=== PATIENT | female | born 1995 | race Caucasian/White ===

== ENCOUNTER 2023-12-28 22:01 | Emergency (ER) | payer OTHER, SELFPAY ==
[2023-12-28 22:05] VITALS: BP 146/84; PULSE 91; RESP 18; TEMP 36.6; O2SAT 96
--- NOTE | 2023-12-28 22:17 | ED_ITS ---
HPI - Nausea/Vomiting/Diarrhea 2 General: Chief complaint: Nausea/Vomiting/Diarrhea Stated complaint: n/v,abdomen pain Time Seen by Provider: 12/28/23 22:02 Source: patient and family Mode of arrival: ambulatory Limitations: no limitations History of Present Illness: Patient is a 28-year-old female presents to ED today along with her mother for complaints of nausea and vomiting. Patient states she has had abdominal pain, nausea, and vomiting for approximately 3 days now. She states she has been seen at [facility] twice. She states she has had blood work, CT of her abdomen/pelvis as well as a pelvic ultrasound and has been told that she has a ruptured ovarian cyst. Patient states she was also seen at [facility] earlier this morning. She at some point had Phenergan suppositories called in to the pharmacy but when she picked them up the pharmacy was closed. Patient states she is here now mainly because of the nausea and vomiting. She states over the past 2 days the only thing that she can do to subside her nausea and vomiting is sit in a hot shower or hot bath. I did inquire about marijuana use. She does states she smokes habitually but has not smoked in several days. MD elicited complaint: nausea and vomiting Onset (ago): day(s) Associated nausea: Yes Associated abdominal pain: Yes Location of pain: Diffuse Radiation: diffuse Pain consistency: constant Severity: moderate Quality: cramping Relieving factors: hot shower/bath and other (antiemetics) Context: marijuana use and other (told she has a ruptured ovarian cyst) Associated symtoms: Reports nausea; Denies chest pain, dizziness, dysuria, fatigue, headache(s) or malaise Review of Systems 2 Const: Denies: fever(s), chills, body aches, fatigue or malaise Card: Denies: chest pain Resp: Denies: dyspnea GI: Reports: abdominal pain, nausea, vomiting and GI cramping; Denies: hematemesis, pain on defecation, rectal pain, hematochezia or melena : Denies: flank pain, difficulty voiding, dysuria, urinary frequency, urinary urgency or urinary hesitancy Musc: Denies: neck pain, back pain, extremity pain or joint pain Skin/Breast: Denies: rash Neuro: Denies: headache(s), numbness in extremities, weakness in extremities, sensory changes or dizziness [facility] ED 2 Female Reproductive History: Date of last menstrual period: 12/07/23 Physical Exam 2 Const: COMMON NORMALS: no acute distress, patient oriented x3, no limitations, alert and well nourished GENERAL APPEARANCE: cooperative O RIENTATION/CONSCIOUSNESS: Yes awake, Yes oriented to person, Yes oriented to place and Yes oriented to time OTHER: hair is wet-she states the only thing that has been helping her N/V is sitting in a bath or shower HENMT: COMMON NORMALS: normocephalic and atraumatic HEAD & SCALP: normal to inspection, normocephalic and atraumatic Eye: GENERAL EYE: appearance normal, both eyes and all related structures and normal light reflex DIRECT OPHTHALMOSCOPY: Yes normal light reflex Resp: COMMON NORMALS: normal respiratory effort and clear to auscultation bilaterally AUSCULTATION: clear to auscultation bilaterally Cardio: COMMON NORMALS: regular rate and regular rhythm RATE: regular rate RHYTHM: regular rhythm GI: COMMON NORMALS: Normal to inspection, nondistended, normoactive bowel sounds present, Soft to palpation, No hepatosplenomegaly present and no masses INSPECTION: Yes normal to inspection AUSCULTATION: Yes normoactive bowel sounds PALPATION: Yes Soft to palpation, Yes Tenderness to palpation present (GI) (mild epigastric and lower abdominal pain; non-surgical exam), No Guarding due to palpation present (GI), No Rigid due to palpation and Yes No hepatosplenomegaly present : COMMON NORMALS: Yes no CVA tenderness BLADDER/KIDNEY EXAM: Yes no CVA tenderness Back/Pelvis: COMMON NORMALS: no CVA tenderness and thoracic and lumbar spine normal to inspection Extremity: GENERAL: Yes normal exam except as noted Neuro: SHERRY COMA SCALE: document GCS findings Sherry coma scale eye opening: Spontaneous Sherry coma scale verbal response: Orientated Sherry coma scale motor response: Obey commands [place] coma scale total score: 15 COMMON NORMALS: patient oriented x3, CN's II-XII intact bilaterally, moves all extremities, no focal motor deficits, no sensory deficits noted and gait normal SENSORIUM/ORIENTATION: Yes alert, Yes oriented to person, Yes oriented to place and Yes oriented to time Skin: COMMON NORMALS: no rashes or lesions noted GENERAL SKIN EXAM: no rashes or lesions noted Course 2 Vital Signs: Vital signs: Vital Signs Temperature 98 F 03/27/24 22:05 Pulse Rate 95 12/28/23 23:12 Respiratory Rate 16 12/28/23 23:12 Blood Pressure 142/95 12/28/23 23:12 Pulse Oximetry 99 12/28/23 23:12 Oxygen Delivery Me thod Room Air 12/28/23 23:12 MDM - Nausea/Vomiting/Diarrhea Medical Decision Making Patient here for severe nausea and vomiting over the last few days. Patient has been seen at [facility] yesterday as well as today. Records from [facility] were obtained. She had a CT scan of her abdomen and pelvis on 12/26. Impression at that time was 1) no acute abnormalities in the abdomen or pelvis. 2) Left adnexal cyst. Patient had an ultrasound performed today. Impression was 1) no apparent pathology. Likely recently ruptured left ovarian functional cyst or follicle (1.5cm). Hemoglobin today is higher than what it was at [facility]. At this time I have a low suspicion that her profound nausea and vomiting is secondary to such a small cyst. She is a habitual marijuana user and states the only thing that has helped for her symptoms is a hot bath/hot shower. She states she did not get much relief from the Reglan and Benadryl given here. I then gave her Haldol and Ativan suspecting a cannabis hyperemesis syndrome and this significantly alleviated her symptoms. Blood work today is fairly unremarkable. She is mildly hypokalemic most likely from the vomiting. She was given oral potassium supplementation for this. Recommend follow-up with her primary care provider. Medical Records I reviewed the patient's medical records. Lab Data I reviewed the patient's lab results. 12/28/23 22:29 12/28/23 22:29 Laboratory Results WBC 12.69 10^3/uL (3.29-11.43) H 12/28/23 22: RBC 5.05 10^6/uL (3.85-5.65) 12/28/23 22: Hgb 14.60 g/dL (11.27-16.99) 12/28/23 22: Hct 45.0 % (36-47) 12/28/23 22: MCV 89.1 fl (85-98) 12/28/23 22: MCH 28.9 pg (27-33) 12/28/23 22: MCHC 32.4 g/dL (30-55) 12/28/23 22: RDW 12.4 % (12.1-15.1) 12/28/23: Plt Count 302 10^3/cmm (157-399) 12/28/23 22: MPV 9.8 fL (7.4-10.4) 12/28/23: Neut % (Auto) 80.6 % 12/28/23: Lymph % (Auto) 12.5 % 12/28/23: [place] % (Auto) 6.2 % 12/28/23: Eos % (Auto) 0.1 % 12/28/23: Baso % (Auto) 0.2 % 12/28/23: Neut # (Auto) 10.23 10^3/uL (1.8-7.7) H 12/28/23: Lymph # (Auto) 1.6 10^3/uL (0.8-4.8) 12/28/23: [place] # (Auto) 0.8 10^3/uL (0.2-0.9) 12/28/23: Eos # (Auto) 0.0 10^3/uL (0.0-0.8) 12/28/23: Baso # (Auto) 0.0 10^3/uL (0.0-0.1) 12/28/23: Nucleated RBC % (auto) 0 % 12/28/23: Nucleated RBCs # 0.0 /100WBC 12/28/23 22: Sodium 142 mmol/L (136-145) 12/28/23 22: Potassium 3.0 mmol/L (3.5-5.1) L 12/28/23: Chloride 101 mmol/L (98-107) 12/28/23 22: Carbon Dioxide 28 mmol/L (22-29) 12/28/23 22: Anion Gap 16.0 (5-19) 12/28/23 22: BUN 8 mg/dL (6-20) 12/28/23: Creatinine 0.6 mg/dL (0.5-0.9) 12/28/23: GFR Calculation 119.0 mL/min (90-130) 12/28/23: Glucose 97 mg/dL (65-115) 12/28/23 22: Calculated Osmolality 292 mOsm/kg (285-295) 12/28/23 22: Calcium 9.7 mg/dL (8.5-10.5) 12/28/23: Total Bilirubin 0.5 mg/dL (0.15-1.2) 12/28/23: AST 26 U/L (0-32) 12/28/23 22: ALT 15 U/L (0-33) 12/28/23: Alkaline Phosphatase 86 U/L (35-105) 12/28/23: Total Protein 7.5 g/dL (6.6-8.7) 12/28/23: Albumin 4.6 g/dL (3.5-5.2) 12/28/23: Globulin 2.9 g/dL (1.3-4.6) 12/28/23: Lipase 70 U/L (13-60) H 12/28/23 22: HCG, Qual Negative (Negative) 12/28/23: Urine Color Yellow (Yellow) 12/28/23 22: Urine Appearance Sl hazy (CLEAR) A 12/28/23 22:37 Urine pH 5 (5-7) 12/28/23 22:37 Ur Specific [place] 1.025 (1.005-1.030) 12/28/23 22: Urine Protein Trace (Negative) 12/28/23 22: Urine Glucose (UA) Norm (Normal) 12/28/23 22:37 Urine Ketones 1+ (Negative) H 12/28/23 22:37 Urine Blood Trace (Negative) H 12/28/23 22:37 Urine Nitrate Negative (Negative) 12/28/23 22: Urine Bilirubin 1+ (Negative) H 12/28/23 22:37 Urine Urobilinogen Neg mg/dL (Negative) 12/28/23 22:37 Ur Leukocyte Esterase Negative (Negative) 12/28/23 22: Urine RBC 0-4 /hpf (0-2) H 12/28/23 22: Urine WBC 0-4 /hpf (0-5) H 12/28/23 22:37 Ur Squamous Epith Cells 5-10 /hpf (0-5) H 12/28/23 22:37 Amorphous Sediment Not Reportable 12/28/23 22:37 Urine Bacteria Trace /hpf (NONE) 12/28/23 22:37 Urine Mucus 3+ /hpf 12/28/23 22:37 No radiology studies performed this visit Discharge Plan Discharge Patient Disposition: Home Clinical Impression: Nausea and vomiting Qualifiers: Vomiting type: unspecified Qualified Code(s): R11.2 - Nausea with vomiting, unspecified Condition: Stable Discharge Orders: Discharge ED (Routine); Ordered 12/28/23 Ordered By: Tami Spence Referrals: Gissell Chatman MD [Primary Care Provider] - Coding Level of Care Code 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
[2023-12-28] MEDS: diphenhydrAMINE 50 mg/mL SDV 1mL IVP (22:34)
[2023-12-28] MEDS: metoclopramide 5 mg/mL SDV 2 mL 10 MG IVP (22:34)
[2023-12-28 22:35] LABS: Basophils % 0.2 %; Eosinophils % 0.1 %; Lymphocytes # 1.6 10^3/uL (0.8-4.8); Lymphocytes % 12.5 %; Mean Corpuscular HGB Conc 32.4 g/dL (30-55); Mean Corpuscular Hemoglobin 28.9 pg (27-33); Mean Corpuscular Volume 89.1 fl (85-98); Mean Platelet Volume 9.8 fL (7.4-10.4); Monocytes # 0.8 10^3/uL (0.2-0.9); Monocytes % 6.2 %; Neutrophils # 10.23 10^3/uL (1.8-7.7); Neutrophils % 80.6 %; Nucleated Red Blood Cells % 0 %; Platelet Count 302 10^3/cmm (157-399); Red Blood Count 5.05 10^6/uL (3.85-5.65); Red Cell Distribution Width 12.4 % (12.1-15.1); White Blood Count 12.69 10^3/uL (3.29-11.43)
[2023-12-28] MEDS: sodium chloride 0.9% 1,000 ML 999 ML IV (22:35)
[2023-12-28 22:47] LABS: HCG, Serum Qual Negative (Negative)
[2023-12-28 22:54] LABS: Alanine Aminotransferase 15 U/L (0-33); Albumin Level 4.6 g/dL (3.5-5.2); Alkaline Phosphatase 86 U/L (35-105); Aspartate Amino Transferase 26 U/L (0-32); Blood Urea Nitrogen 8 mg/dL (6-20); Calcium 9.7 mg/dL (8.5-10.5); Carbon Dioxide 28 mmol/L (22-29); Chloride 101 mmol/L (98-107); Globulin 2.9 g/dL (1.3-4.6); Glucose 97 mg/dL (65-115); Lipase 70 U/L (13-60); Osmolality Calculated 292 mOsm/kg (285-295); Sodium 142 mmol/L (136-145); Total Bilirubin 0.5 mg/dL (0.15-1.2); Total Protein 7.5 g/dL (6.6-8.7)
[2023-12-28 23:01] LABS: Add Urine Microscopic? YES; Bilirubin Urine 1+ (Negative); Blood Urine Trace (Negative); Glucose Urine UA Norm (Normal); Ketones Urine 1+ (Negative); Leukocyte Esterase Urine Negative (Negative); Nitrate Urine Negative (Negative); Protein Urine Trace (Negative); Specific Gravity, Urine 1.025 (1.005-1.030); Urine Appearance SL Hazy (CLEAR); Urine Color Yellow (Yellow); Urobilinogen Urine Neg (Negative); pH Urine 5 (5-7)
[2023-12-28 23:02] LABS: Add Urine Culture? No; Bacteria Urine TRACE /hpf; Mucus Urine 3+ /hpf; RBC Urine 0-4 /hpf (0-2); WBC Urine 0-4 /hpf (0-5)
[2023-12-28] MEDS: LORazepam 2 mg/mL INJ 10 mL MDV 1 MG IV (23:09)
[2023-12-28] MEDS: haloperidol inj 5 mg/mL INJ 1 mL IVP (23:09)
[2023-12-28 23:12] VITALS: BP 142/95; PULSE 95; RESP 16; O2SAT 99
[2023-12-28] MEDS: potassium chloride ER 20 mEq Tablet 40 MEQ PO (23:34)
== END 2023-12-28 23:42 | disposition home or self-care (01) ==
PROVIDERS: Emergency Provider Physician Assistant; PCP Internal Medicine
DX: R11.2 Nausea with vomiting, unspecified (principal)
CPT/HCPCS: 80053; 81001; 83690; 84703; 85025; 96361; 96374; 96375; 99284; J1200; J1630; J2060; J2765; J7030

== ENCOUNTER 2024-01-04 10:03 | Emergency (ER) | payer OTHER, SELFPAY ==
[2024-01-04 10:21] VITALS: PULSE 82; TEMP 36.7; O2SAT 99; BMI 32.9
[2024-01-04 10:27] VITALS: BP 147/98; PULSE 91; O2SAT 100
--- NOTE | 2024-01-04 10:27 | ED_ITS ---
HPI - Nausea/Vomiting/Diarrhea 2 General: Chief complaint: Nausea/Vomiting/Diarrhea Stated complaint: N/V, cant eat or drink Time Seen by Provider: 01/04/24 10:15 Source: patient Mode of arrival: ambulatory History of Present Illness: 28-year-old female who presents emergenc y room with complaints of increased abdominal pain nausea vomiting last few days. She was seen a few weeks ago with a ruptured ovarian cyst she is serum was negative at that time. She is she is currently having her period she has previously had surgery for diverticulitis as well as an appendectomy. MD elicited complaint: nausea and vomiting Location of pain: RLQ Quality: cramping Exacerbating factors: none Relieving factors: none Associated symtoms: Denies chest pain or dysuria Review of Systems 2 Const: Denies: fever(s) or chills Card: Denies: chest pain Resp: Denies: dyspnea GI: Denies: abdominal pain : Denies: dysuria, urinary frequency or urinary urgency Musc: Denies: neck pain or back pain Skin/Breast: Denies: rash PFSH ED 2 PFSH: Medical History (Updated 01/04/24 @ 12:50 by Paco Moore DO) Ovarian cyst Surgical History (Updated 01/04/24 @ 10:48 by Paco Moore DO) History of appendectomy Physical Exam 2 Const: GENERAL APPEARANCE: cooperative and comfortable O RIENTATION/CONSCIOUSNESS: Yes awake, Yes oriented to person, Yes oriented to place and Yes oriented to time HENMT: COMMON NORMALS: normocephalic, atraumatic and hearing grossly normal bilaterally HEAD & SCALP: normocephalic and atraumatic Resp: COMMON NORMALS: normal respiratory effort, No retractions, No use of accessory muscles and clear to auscultation bilaterally AUSCULTATION: clear to auscultation bilaterally Cardio: COMMON NORMALS: regular rate, regular rhythm and No murmurs present (Cardio) RATE: regular rate RHYTHM: regular rhythm GI: COMMON NORMALS: Soft to palpation and No hepatosplenomegaly present A USCULTATION: Yes normoactive bowel sounds PALPATION: Yes Soft to palpation, No Tenderness to palpation present (GI), No Guarding due to palpation present (GI) and Yes No hepatosplenomegaly present Extremity: COMMON NORMALS: normal to inspection, capillary refill normal, no clubbing, cyanosis or edema, no calf tenderness and no pedal edema Neuro: SENSORIUM/ORIENTATION: Yes oriented to person, Yes oriented to place and Yes oriented to time Skin: COMMON NORMALS: no rashes or lesions noted GENERAL SKIN EXAM: no rashes or lesions noted Course 2 Vital Signs: Vital signs: Vital Signs Temperature 98.1 F 01/04/24 10:21 Pulse Rate 95 01/04/24 12:33 Blood Pressure 162/91 01/04/24 12:33 Pulse Oximetry 94 01/04/24 12:33 Oxygen Delivery Me thod Room Air 01/04/24 12:33 MDM - Nausea/Vomiting/Diarrhea Medical Decision Making Patient still has persistent nausea and vomiting she says between episodes of nausea vomiting she does not really have much discomfort. She is seen a couple days ago for ruptured ovarian cyst she is previously having had an of appendectomy. She does not really have classic biliary colic her liver enzymes and T. bili are normal white count is slightly elevated. This may be due to demargination from persistent nausea and vomiting. She has not had much relief with the promethazine she took at home or the ondansetron that we gave her IV here. She does not regularly use medical marijuana. No other acute findings on the CT. Discharged home clear liquid diet patient be given Haldol and Ativan prior to discharge discussed that this make her very sleepy but should cut down on the nausea and vomiting if symptoms persist through tomorrow she should be reevaluated either at her doctor's office or return to the emergency room Had ordered Haldol and Ativan for nausea and vomiting. She declined. Medical Records I reviewed the patient's medical records. Lab Data I reviewed the patient's lab results. 01/04/24 10:18 01/04/24 10:18 Laboratory Results WBC 13.34 10^3/uL (3.29-11.43) H 01/04/24 10:18 RBC 4.66 10^6/uL (3.85-5.65) 01/04/24 10:18 Hgb 13.50 g/dL (11.27-16.99) 01/04/24 10:18 Hct 44.1 % (36-47) 01/04/24 10:18 MCV 94.6 fl (85-98) 01/04/24 10:18 MCH 29.0 pg (27-33) 01/04/24 10:18 MCHC 30.6 g/dL (30-55) 01/04/24 10:18 RDW 12.6 % (12.1-15.1) 01/04/24 10:18 Plt Count 262 10^3/cmm (157-399) 01/04/24 10:18 MPV 10.7 fL (7.4-10.4) H 01/04/24 10:18 Neut % (Auto) 88.8 % 01/04/24 10:18 Lymph % (Auto) 8.2 % 01/04/24 10:18 [place] % (Auto) 2.4 % 01/04/24 10:18 Eos % (Auto) 0.0 % 01/04/24 10:18 Baso % (Auto) 0.2 % 01/04/24 10:18 Neut # (Auto) 11.84 10^3/uL (1.8-7.7) H 01/04/24 10:18 Lymph # (Auto) 1.1 10^3/uL (0.8-4.8) 01/04/24 10:18 [place] # (Auto) 0.3 10^3/uL (0.2-0.9) 01/04/24 10:18 Eos # (Auto) 0.0 10^3/uL (0.0-0.8) 01/04/24 10:18 Baso # (Auto) 0.0 10^3/uL (0.0-0.1) 01/04/24 10:18 Nucleated RBC % (auto) 0 % 01/04/24 10:18 Nucleated RBCs # 0.0 /100WBC 01/04/24 10:18 Sodium 144 mmol/L (136-145) 01/04/24 10:18 Potassium 3.4 mmol/L (3.5-5.1) L 01/04/24 10:18 Chloride 107 mmol/L (98-107) 01/04/24 10:18 Carbon Dioxide 27 mmol/L (22-29) 01/04/24 10:18 Anion Gap 13.4 (5-19) 01/04/24 10:18 BUN 6 mg/dL (6-20) 01/04/24 10:18 Creatinine 0.6 mg/dL (0.5-0.9) 01/04/24 10:18 GFR Calculation 119.0 mL/min (90-130) 01/04/24 10:18 Glucose 115 mg/dL (65-115) 01/04/24 10:18 Calculated Osmolality 297 mOsm/kg (285-295) H 01/04/24 10:18 Calcium 8.8 mg/dL (8.5-10.5) 01/04/24 10:18 Total Bilirubin 0.2 mg/dL (0.15-1.2) 01/04/24 10:18 AST 21 U/L (0-32) 01/04/24 10:18 ALT 25 U/L (0-33) 01/04/24 10:18 Alkaline Phosphatase 79 U/L (35-105) 01/04/24 10:18 Total Protein 6.8 g/dL (6.6-8.7) 01/04/24 10:18 Albumin 4.2 g/dL (3.5-5.2) 01/04/24 10:18 Globulin 2.6 g/dL (1.3-4.6) 01/04/24 10:18 Lipase 49 U/L (13-60) 01/04/24 10:18 HCG, Qual Negative (Negative) 01/04/24 10:35 Urine Color Light yellow (Yellow) 01/04/24 11:55 Urine Appearance Hazy (CLEAR) A 01/04/24 11:55 Urine pH 8 (5-7) H 01/04/24 11:55 Ur Specific [place] 1.015 (1.005-1.030) 01/04/24 11:55 Urine Protein Neg (Negative) 01/04/24 11:55 Urine Glucose (UA) Norm (Normal) 01/04/24 11:55 Urine Ketones Negative (Negative) 01/04/24 11:55 Urine Blood Neg (Negative) 01/04/24 11:55 Urine Nitrate Negative (Negative) 01/04/24 11:55 Urine Bilirubin Neg (Negative) 01/04/24 11:55 Prot Sulfosalicylic Acd Negative (Negative) 01/04/24 11:55 Urine Urobilinogen Norm mg/dL (Negative) 01/04/24 11:55 Ur Leukocyte Esterase Negative (Negative) 01/04/24 11:55 Urine RBC 0-4 /hpf (0-2) H 01/04/24 11:55 Urine WBC 0-4 /hpf (0-5) H 01/04/24 11:55 Ur Squamous Epith Cells Rare /hpf (0-5) 01/04/24 11:55 Amorphous Sediment 1+ /hpf 01/04/24 11:55 Urine Bacteria Trace /hpf (NONE) 01/04/24 11:55 Urine Mucus Trace /hpf 01/04/24 11:55 All radiology interpretation(s) finalized by discharge Discharge Plan Discharge Patient Disposition: Home Clinical Impression: Nausea and vomiting Qualifiers: Vomiting type: unspecified Qualified Code(s): R11.2 - Nausea with vomiting, unspecified Condition: Stable Prescriptions: New ondansetron HCl 4 mg tablet 4 mg PO Q6H PRN (Reason: nausea and vomiting) Qty: 20 0RF No Action Sprintec (28) 0.25-35 mg-mcg Tablet 1 tab PO DAILY Rx Instructions: not started as of 01/04/24 promethazine 25 mg suppository 25 mg MI TID PRN (Reason: Nausea And Vomiting) prochlorperazine maleate 5 mg tablet 5 mg PO Q8H PRN (Reason: Nausea) levothyroxine 50 mcg tablet 50 mcg PO QAM cefdinir 300 mg capsule 300 mg PO Q12H Rx Instructions: for 7 days (rx filled 12/28/23) dicyclomine 10 mg capsule 10 mg PO TID PRN (Reason: Abdominal Pain) escitalopram oxalate 10 mg tablet 10 mg PO DAILY Discharge Orders: Discharge ED (Routine); Ordered 01/04/24 Ordered By: Paco Moore Referrals: Gissell Chatman MD [Primary Care Provider] - Discharge Diet: Clear Liquid Discharge Activity: Increase activity as tolerated Patient Instructions: Opioid Safety, Pain Management Activity Restrictions/Additional Instructions: Thank you for choosing [facility] for your healthcare needs today. Please realize this is an emergency room and that we are providing you with a medical screening exam and this may not be complete and all inclusive of all the testing and or work up that you may need to determine your ailment or severity of your illness. It is very important that you follow up as instructed or that you return to the Emergency Department should you have concerns or if your condition changes or worsens in any way. You are seen emergency room for persistent nausea and vomiting. There was a slight elevation in your white count but the remainder of your tests including a CT of your abdomen did not show any significant abnormality urine was normal. Your liver functions were normal. Recommend clear liquid diet for the next 24 to 48 hours and advance as tolerated. You are given a prescription for ondansetron to use as needed. If you have persistent symptoms recheck with your doctor or in the emergency room tomorrow. 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
--- NOTE | 2024-01-04 10:33 | PC.PHAR ---
pt states she takes care of her own medications-pt states not taken her lexapro 10mg daily or levothyroxine 50mcg daily in 3 weeks-pt states she hasnt taken tri sprintec daily for a month states she saw the dr the other day states she has a new rx for just sprintec daily but states she hasnt started as of 01/04/24-
--- NOTE | 2024-01-04 10:36 | CT_ITS ---
WS: [id number] Examination: CT abdomen pelvis w con* [id number] Reason for Exam: abd pain, nausea and vomiting Date: January 04, 2024 Comparison: August 02, 2013 DLP: 767.[address] scans at [facility] use at least one of these dose optimization techniques: automated e xposure control; mA and/or kV adjustment per patient size (includes targeted exams where dose is matc hed to clinical indication); or iterative reconstruction. Findings: The heart is normal in size. There is no pleural effusion. The liver is not enlarged. No mass is seen. The gallbladder is present. The portal vein appears paten t. The spleen is unremarkable. There is a small hiatal hernia with mild distal esophageal thickening. The stomach is not distended a nd poorly delineated on this study There is no adrenal mass. The kidneys are well-perfused. There is no stone or hydronephrosis. No mass is seen. The pancreas is unremarkable. The aorta is normal in size. There is no small bowel obstruction. There is no free fluid or free air. Uncomplicated diverticulosis is identified. No adenopathy is identified. The adnexa are symmetric. Impression: There is no obstruction. There is no free fluid or free air. The stomach is not distended or well del ineated on this study. The solid organs appear maintained.
[2024-01-04 10:37] LABS: Basophils % 0.2 %; Hematocrit 44.1 % (36-47); Lymphocytes # 1.1 10^3/uL (0.8-4.8); Lymphocytes % 8.2 %; Mean Corpuscular HGB Conc 30.6 g/dL (30-55); Mean Corpuscular Volume 94.6 fl (85-98); Mean Platelet Volume 10.7 fL (7.4-10.4); Monocytes # 0.3 10^3/uL (0.2-0.9); Monocytes % 2.4 %; Neutrophils # 11.84 10^3/uL (1.8-7.7); Neutrophils % 88.8 %; Nucleated Red Blood Cells % 0 %; Platelet Count 262 10^3/cmm (157-399); Red Blood Count 4.66 10^6/uL (3.85-5.65); Red Cell Distribution Width 12.6 % (12.1-15.1); White Blood Count 13.34 10^3/uL (3.29-11.43)
[2024-01-04] MEDS: sodium chloride 0.9% 1,000 ML 999 ML IV (10:42)
[2024-01-04 10:43] LABS: Alanine Aminotransferase 25 U/L (0-33); Albumin Level 4.2 g/dL (3.5-5.2); Alkaline Phosphatase 79 U/L (35-105); Anion Gap 13.4 (5-19); Aspartate Amino Transferase 21 U/L (0-32); Blood Urea Nitrogen 6 mg/dL (6-20); Calcium 8.8 mg/dL (8.5-10.5); Carbon Dioxide 27 mmol/L (22-29); Chloride 107 mmol/L (98-107); Creatinine Clr Calc Pharmacy 138.2137; Globulin 2.6 g/dL (1.3-4.6); Glucose 115 mg/dL (65-115); Lipase 49 U/L (13-60); Osmolality Calculated 297 mOsm/kg (285-295); Potassium 3.4 mmol/L (3.5-5.1); Sodium 144 mmol/L (136-145); Total Bilirubin 0.2 mg/dL (0.15-1.2); Total Protein 6.8 g/dL (6.6-8.7)
[2024-01-04] MEDS: ondansetron 2 mg/ML SDV 2 mL 4 MG IVP (10:43)
[2024-01-04 11:05] LABS: HCG, Serum Qual Negative (Negative)
[2024-01-04] MEDS: iohexol 350 mg/mL 500 mL Btl (per mL) IV (11:30)
[2024-01-04] MEDS: metoclopramide 5 mg/mL SDV 2 mL 10 MG IVP (11:45)
[2024-01-04 11:58] VITALS: BP 143/99; PULSE 94; O2SAT 96
[2024-01-04 12:12] VITALS: BP 124/87; PULSE 91; O2SAT 97
[2024-01-04 12:13] LABS: Add Urine Microscopic? YES; Bilirubin Urine Neg (Negative); Blood Urine Neg (Negative); Glucose Urine UA Norm (Normal); Ketones Urine Negative (Negative); Leukocyte Esterase Urine Negative (Negative); Nitrate Urine Negative (Negative); Protein Urine Neg (Negative); Specific Gravity, Urine 1.015 (1.005-1.030); Sulfosalicylic Acid Urine Negative (Negative); Urine Appearance Hazy (CLEAR); Urine Color Light yellow (Yellow); Urobilinogen Urine Norm (Negative); pH Urine 8 (5-7)
[2024-01-04 12:21] LABS: Add Urine Culture? No; Amorphous Sediment Urine 1+ /hpf; Bacteria Urine TRACE /hpf; Mucus Urine TRACE /hpf; RBC Urine 0-4 /hpf (0-2); Squamous Epithelial Cell Urine RARE /hpf (0-5); WBC Urine 0-4 /hpf (0-5)
[2024-01-04 12:33] VITALS: BP 162/91; PULSE 95; O2SAT 94
== END 2024-01-04 13:00 | disposition home or self-care (01) ==
PROVIDERS: Emergency Medicine; Emergency Provider Family Medicine; PCP Internal Medicine
DX: R11.2 Nausea with vomiting, unspecified (principal)
CPT/HCPCS: 36415; 74177; 80053; 81001; 83690; 84703; 85025; 96361; 96374; 96375; 99285; J2405; J2765; J7030; Q9967

== ENCOUNTER 2024-01-16 13:09 | Emergency (ER) | payer OTHER, SELFPAY ==
[2024-01-16 13:18] VITALS: BP 143/89; PULSE 75; RESP 18; TEMP 36.3; O2SAT 100
--- NOTE | 2024-01-16 13:22 | ED_ITS ---
HPI - Nausea/Vomiting/Diarrhea 2 General: Chief complaint: Nausea/Vomiting/Diarrhea Stated complaint: N/V Time Seen by Provider: 01/16/24 13:17 Source: patient Mode of arrival: ambulatory Limitations: no limitations History of Present Illness: Patient is a 28-year-old female presents to ED today with complaint of nausea and vomiting. Patient was seen here in the emergency department on 12/27 by myself for similar symptoms. Prior to that visit she had been seen at [facility] twice as well as [facility]. She had had CT abdominal/pelvic imaging as well as a pelvic ultrasound which showed a small 1.5cm possible ruptured ovarian cyst. I had questioned whether this finding was directly related to her profound nausea/vomiting. She was feeling better upon discharge then but returned on 01/03 for same symptoms. Was not having much abdominal pain on that visit. On both visits, labs were overall unremarkable. Patient states following her discharge on 01/03, her nausea and vomiting has been fairly controlled at home until this morning when she woke up with severe nausea and vomiting. She took a Phenergan suppository without any relief. She does not complain of abdominal pain today. She states prior to her 12/27 visit she was smoking marijuana daily/habitually. She states since then she has cut down quite a bit and is only using a small amount every few days. Still feeling like hot baths help symptoms. MD elicited complaint: nausea and vomiting Associated nausea: Yes Associated abdominal pain: No Location of pain: None Severity: severe Exacerbating factors: eating Relieving factors: hot shower/bath Associated symtoms: Reports no associated symptoms and nausea; Denies chest pain, dysuria, fatigue, headache(s) or malaise Treatment prior to arrival: other (phenergan suppository) Review of Systems 2 Const: Denies: fever(s), chills, body aches, fatigue or malaise Card: Denies: chest pain Resp: Denies: dyspnea GI: Reports: nausea and vomiting; Denies: abdominal pain, hematemesis, diarrhea, change in bowel habits, hematochezia or melena : Denies: flank pain, difficulty voiding, dysuria, urinary frequency, urinary urgency or urinary hesitancy Musc: Denies: neck pain, back pain, extremity pain or joint pain Skin/Breast: Denies: rash Neuro: Denies: headache(s), numbness in extremities, weakness in extremities or sensory changes PFSH ED 2 PFSH: Medical History Ovarian cyst Surgical History History of appendectomy Female Reproductive History: Date of last menstrual period: 01/02/24 Physical Exam 2 Const: COMMON NORMALS: patient oriented x3, no limitations, alert and well nourished GENERAL APPEARANCE: cooperative and other (appears nauseous) O RIENTATION/CONSCIOUSNESS: Yes awake, Yes oriented to person, Yes oriented to place and Yes oriented to time Eye: COMMON NORMALS: no scleral icterus GENERAL EYE: appearance normal, both eyes and all related structures Resp: COMMON NORMALS: normal respiratory effort and clear to auscultation bilaterally AUSCULTATION: clear to auscultation bilaterally Cardio: COMMON NORMALS: regular rate and regular rhythm RATE: regular rate RHYTHM: regular rhythm GI: COMMON NORMALS: Normal to inspection, nondistended, normoactive bowel sounds present, Soft to palpation, non-tender, No hepatosplenomegaly present and no masses PALPATION: Yes Soft to palpation and Yes No hepatosplenomegaly present : COMMON NORMALS: Yes no CVA tenderness BLADDER/KIDNEY EXAM: Yes no CVA tenderness Back/Pelvis: COMMON NORMALS: no CVA tenderness Extremity: GENERAL: Yes normal exam except as noted Neuro: SHERRY COMA SCALE: document GCS findings Sherry coma scale eye opening: Spontaneous Sherry coma scale verbal response: Orientated [place] coma scale motor response: Obey commands Sherry coma scale total score: 15 COMMON NORMALS: patient oriented x3, moves all extremities, no focal motor deficits and no sensory deficits noted SENSORIUM/ORIENTATION: Yes alert, Yes oriented to person, Yes oriented to place and Yes oriented to time Skin: COMMON NORMALS: no rashes or lesions noted GENERAL SKIN EXAM: no rashes or lesions noted Course 2 Vital Signs: Vital signs: Vital Signs Temperature 97.3 F L 01/16/24 13:18 Pulse Rate 73 01/16/24 14:14 Respiratory Rate 16 01/16/24 14:14 Blood Pressure 133/90 01/16/24 15:12 Pulse Oximetry 98 01/16/24 14:14 Oxygen Delivery Me thod Room Air 01/16/24 14:14 MDM - Nausea/Vomiting/Diarrhea Medical Decision Making Patient here for acute onset nausea and vomiting starting this morning. This is patient's third ED visit over the past 3 weeks for similar symptoms. Blood work here overall is unremarkable. Mild white count most likely from vomiting all morning. She is not having much abdominal discomfort and abdomen is nonsurgical on exam. I do still suspect this could be a cannabis hyperemesis syndrome. She states she is agreeable to complete marijuana cessation. We discussed using capsaicin cream at home as needed. Will give her a prescription for disintegrating tab Zofran. Return to ED precautions given. Differential Diagnosis Likely food poisoning, gastroenteritis, drug-induced nausea and vomiting and dehydration Medical Records I reviewed the patient's medical records. Lab Data I reviewed the patient's lab results. 01/16/24 13:40 01/16/24 13:40 Laboratory Results WBC 14.01 10^3/uL (3.29-11.43) H 01/16/24 13:40 RBC 4.62 10^6/uL (3.85-5.65) 01/16/24 13:40 Hgb 13.60 g/dL (11.27-16.99) 01/16/24 13:40 Hct 42.4 % (36-47) 01/16/24 13:40 MCV 91.8 fl (85-98) 01/16/24 13:40 MCH 29.4 pg (27-33) 01/16/24 13:40 MCHC 32.1 g/dL (30-55) 01/16/24 13:40 RDW 12.4 % (12.1-15.1) 01/16/24 13:40 Plt Count 301 10^3/cmm (157-399) 01/16/24 13:40 MPV 9.7 fL (7.4-10.4) 01/16/24 13:40 Neut % (Auto) 91.7 % 01/16/24 13:40 Lymph % (Auto) 6.4 % 01/16/24 13:40 [place] % (Auto) 1.3 % 01/16/24 13:40 Eos % (Auto) 0.0 % 01/16/24 13:40 Baso % (Auto) 0.2 % 01/16/24 13:40 Neut # (Auto) 12.86 10^3/uL (1.8-7.7) H 01/16/24 13:40 Lymph # (Auto) 0.9 10^3/uL (0.8-4.8) 01/16/24 13:40 [place] # (Auto) 0.2 10^3/uL (0.2-0.9) 01/16/24 13:40 Eos # (Auto) 0.0 10^3/uL (0.0-0.8) 01/16/24 13:40 Baso # (Auto) 0.0 10^3/uL (0.0-0.1) 01/16/24 13:40 Nucleated RBC % (auto) 0 % 01/16/24 13:40 Nucleated RBCs # 0.0 /100WBC 01/16/24 13:40 Sodium 135 mmol/L (136-145) L 01/16/24 13:40 Potassium 4.1 mmol/L (3.5-5.1) 01/16/24 13:40 Chloride 101 mmol/L (98-107) 01/16/24 13:40 Carbon Dioxide 21 mmol/L (22-29) L 01/16/24 13:40 Anion Gap 17.1 (5-19) 01/16/24 13:40 BUN 8 mg/dL (6-20) 01/16/24 13:40 Creatinine 0.5 mg/dL (0.5-0.9) 01/16/24 13:40 GFR Calculation 146.9 mL/min (90-130) H 01/16/24 13:40 Glucose 129 mg/dL (65-115) H 01/16/24 13:40 Calculated Osmolality 280 mOsm/kg (285-295) L 01/16/24 13:40 Calcium 10.1 mg/dL (8.5-10.5) 01/16/24 13:40 Total Bilirubin 0.2 mg/dL (0.15-1.2) 01/16/24 13:40 AST 14 U/L (0-32) 01/16/24 13:40 ALT 16 U/L (0-33) 01/16/24 13:40 Alkaline Phosphatase 73 U/L (35-105) 01/16/24 13:40 Total Protein 7.1 g/dL (6.6-8.7) 01/16/24 13:40 Albumin 4.2 g/dL (3.5-5.2) 01/16/24 13:40 Globulin 2.9 g/dL (1.3-4.6) 01/16/24 13:40 Lipase 18 U/L (13-60) 01/16/24 13:40 HCG, Qual Negative (Negative) 01/16/24 13:40 Urine Color Yellow (Yellow) 01/16/24 14:45 Urine Appearance Clear (CLEAR) 01/16/24 14:45 Urine pH 8 (5-7) H 01/16/24 14:45 Ur Specific [place] 1.015 (1.005-1.030) 01/16/24 14:45 Urine Protein Neg (Negative) 01/16/24 14:45 Urine Glucose (UA) Norm (Normal) 01/16/24 14:45 Urine Ketones 2+ (Negative) H 01/16/24 14:45 Urine Blood Neg (Negative) 01/16/24 14:45 Urine Nitrate Negative (Negative) 01/16/24 14:45 Urine Bilirubin Neg (Negative) 01/16/24 14:45 Prot Sulfosalicylic Acd Negative (Negative) 01/16/24 14:45 Urine Urobilinogen Neg mg/dL (Negative) 01/16/24 14:45 Ur Leukocyte Esterase Negative (Negative) 01/16/24 14:45 No radiology studies performed this visit Discharge Plan Discharge Patient Disposition: Home Clinical Impression: Nausea and vomiting Qualifiers: Vomiting type: unspecified Qualified Code(s): R11.2 - Nausea with vomiting, unspecified Condition: Stable Prescriptions: New ondansetron 4 mg tablet,disintegrating 4 mg PO Q8H PRN (Reason: nausea and vomiting) Qty: 14 0RF No Action norgestimate-ethinyl estradiol [Sprintec (28)] 0.25-35 mg-mcg Tablet 1 tab PO DAILY Rx Instructions: not started as of 01/04/24 levothyroxine 50 mcg tablet 50 mcg PO QAM escitalopram oxalate 10 mg tablet 10 mg PO DAILY Discharge Orders: Discharge ED (Routine); Ordered 01/16/24 Ordered By: Tami Spence Referrals: Gissell Chatman MD [Primary Care Provider] - Patient Instructions: Acute Nausea and Vomiting (DC) Coding Level of Care Code ED Theatrical Scenic Designer for Johana Renee
[2024-01-16] MEDS: sodium chloride 0.9% 1,000 ML 999 ML IV (13:40)
[2024-01-16] MEDS: haloperidol inj 5 mg/mL INJ 1 mL 2.5 MG IVP (13:42)
[2024-01-16] MEDS: LORazepam 2 mg/mL INJ 10 mL MDV 1 MG IVP (13:43)
[2024-01-16 13:59] LABS: Basophils % 0.2 %; Hematocrit 42.4 % (36-47); Lymphocytes # 0.9 10^3/uL (0.8-4.8); Lymphocytes % 6.4 %; Mean Corpuscular HGB Conc 32.1 g/dL (30-55); Mean Corpuscular Hemoglobin 29.4 pg (27-33); Mean Corpuscular Volume 91.8 fl (85-98); Mean Platelet Volume 9.7 fL (7.4-10.4); Monocytes # 0.2 10^3/uL (0.2-0.9); Monocytes % 1.3 %; Neutrophils # 12.86 10^3/uL (1.8-7.7); Neutrophils % 91.7 %; Nucleated Red Blood Cells % 0 %; Platelet Count 301 10^3/cmm (157-399); Red Blood Count 4.62 10^6/uL (3.85-5.65); Red Cell Distribution Width 12.4 % (12.1-15.1); White Blood Count 14.01 10^3/uL (3.29-11.43)
[2024-01-16 14:12] LABS: Alanine Aminotransferase 16 U/L (0-33); Albumin Level 4.2 g/dL (3.5-5.2); Alkaline Phosphatase 73 U/L (35-105); Anion Gap 17.1 (5-19); Aspartate Amino Transferase 14 U/L (0-32); Blood Urea Nitrogen 8 mg/dL (6-20); Calcium 10.1 mg/dL (8.5-10.5); Carbon Dioxide 21 mmol/L (22-29); Chloride 101 mmol/L (98-107); Creatinine Clr Calc Pharmacy 165.8564; Globulin 2.9 g/dL (1.3-4.6); Glomerular Filtration Rate 146.9 mL/min (90-130); Glucose 129 mg/dL (65-115); HCG, Serum Qual Negative (Negative); Lipase 18 U/L (13-60); Osmolality Calculated 280 mOsm/kg (285-295); Potassium 4.1 mmol/L (3.5-5.1); Sodium 135 mmol/L (136-145); Total Bilirubin 0.2 mg/dL (0.15-1.2); Total Protein 7.1 g/dL (6.6-8.7)
[2024-01-16 14:14] VITALS: BP 119/72; PULSE 73; RESP 16; O2SAT 98
[2024-01-16] MEDS: ondansetron 2 mg/ML SDV 2 mL 4 MG IVP (14:25)
[2024-01-16 14:54] LABS: Add Urine Microscopic? NO; Charge for UA Resulting for Rev
[2024-01-16 15:06] LABS: Specific Gravity, Urine 1.015 (1.005-1.030); Urine Appearance Clear (CLEAR); Urine Color Yellow (Yellow); pH Urine 8 (5-7)
[2024-01-16 15:07] LABS: Bilirubin Urine Neg (Negative); Blood Urine Neg (Negative); Glucose Urine UA Norm (Normal); Ketones Urine 2+ (Negative); Leukocyte Esterase Urine Negative (Negative); Nitrate Urine Negative (Negative); Protein Urine Neg (Negative); Sulfosalicylic Acid Urine Negative (Negative); Urobilinogen Urine Neg (Negative)
[2024-01-16 15:12] VITALS: BP 133/90
[2024-01-16 15:41] VITALS: BP 116/97; PULSE 106; RESP 16; O2SAT 97
== END 2024-01-16 15:42 | disposition home or self-care (01) ==
PROVIDERS: Emergency Provider Physician Assistant; PCP Internal Medicine
DX: R11.2 Nausea with vomiting, unspecified (principal)
CPT/HCPCS: 80053; 81003; 83690; 84703; 85025; 96374; 96375; 99284; J1630; J2060; J2405; J7030

== ENCOUNTER 2025-01-02 21:29 | Emergency (ER) | payer OTHER, SELFPAY ==
--- NOTE | 2025-01-02 21:38 | XRR_ITS ---
PROCEDURE INFORMATION: Exam: XR Abdomen Exam date and time: 01/02/2025 10:21 PM Age: 29 years old Clinical indication: Prior surgery; Surgery date: <1 month; Surgery type: Hiatal hernia/jaylon fundoplication; Abdominal pain/distention; Nausea; Weakness; Post op hiatal hernia repair/jaylon fundoplication x 3 weeks ago TECHNIQUE: Imaging protocol: Radiologic exam of the abdomen. Views: Frontal supine view of the abdomen. 1 View. COMPARISON: CT abdomen pelvis w con* [id number] 01/04/2024 11:27 AM FINDINGS: Gastrointestinal tract: Nonobstructive bowel gas pattern. Stomach is gas filled. Intraperitoneal space: Epigastric surgical clips are noted. Bones/joints: Unremarkable. XR/XR abdomen 1V* [id number] IMPRESSION: Nonobstructive bowel gas pattern. Stomach is gas filled which is nonspecific.
[2025-01-02 21:40] VITALS: BP 133/86; PULSE 73; RESP 15; TEMP 36.4; O2SAT 99; BMI 32.9
[2025-01-02 22:56] LABS: Basophils % 0.2 %; Lymphocytes # 0.9 10^3/uL (0.8-4.8); Lymphocytes % 9.2 %; Mean Corpuscular HGB Conc 32.2 g/dL (30-55); Monocytes # 0.2 10^3/uL (0.2-0.9); Monocytes % 1.7 %; Neutrophils # 9.09 10^3/uL (1.8-7.7); Neutrophils % 88.6 %; Nucleated Red Blood Cells % 0 %; Platelet Count 246 10^3/cmm (157-399); Red Blood Count 4.71 10^6/uL (3.85-5.65); Red Cell Distribution Width 12.7 % (12.1-15.1); White Blood Count 10.25 10^3/uL (3.29-11.43)
[2025-01-02] MEDS: ondansetron 2 mg/ML SDV 2 mL 8 MG IVP (23:09)
--- NOTE | 2025-01-02 23:11 | ED_ITS ---
HPI - Nausea/Vomiting/Diarrhea 2 General: Chief complaint: Nausea/Vomiting/Diarrhea Stated complaint: post hernia surg, n/v/d Time Seen by Provider: 01/02/25 22:30 Source: patient Mode of arrival: ambulatory Limitations: no limitations History of Present Illness: Patient is a 29-year-old female who presents the emergency department complaining of upper abdominal pain and associated nausea and diarrhea. States that she has been dealing with this since a hernia repair surgery in early December, notes that she has a constant need to throw up but has been physically unable to do so. Reportedly had a Ayse fundoplication for hiatal hernia repair, also has history of appendectomy at age 5. Reports severe lower abdominal pain, has difficulty describing it just stating that it is a constant pain. Denies any blood in her stool, no history of previous bowel obstructions. Notes that her last bowel movement was earlier today, and it has consistently been diarrhea. Has not taken any medications for nausea or her pain. No urinary symptoms are reported. Vitals unremarkable at this time. Denies any fever. Denies any frequent marijuana use. MD elicited complaint: nausea, diarrhea and abdominal pain Pertinent past history: abdominal surgery Onset (ago): week(s) Associated nausea: Yes Associated abdominal pain: Yes Location of pain: Epigastric Severity: severe Context: recent surgery/procedure and history of abdominal surgery Associated symtoms: Reports nausea; Denies chest pain, diaphoresis, dizziness, dysuria, headache(s) or palpitations Related Data Home Medications ?Medication ?Instructions ?Recorded ?Confirmed escitalopram oxalate 10 mg tablet 10 mg PO DAILY 01/0301/16/24 levothyroxine 50 mcg tablet 50 mcg PO QAM 01/04/24 norgestimate 0.25 mg-ethinyl 1 tab PO DAILY 01/04/24 0 01/16/24 estradiol 35 mcg tablet (Sprintec (28)) Previous Rx's ?Medication ?Instructions ?Recorded ondansetron 4 mg disintegrating 4 mg PO Q8H PRN nausea and 01/16/24 tablet vomiting #14 tabs ondansetron HCl 4 mg tablet 4 mg PO Q8H #30 tabs 01/03 Allergies Allergy/AdvReac Type Severity Reaction Status Date / Time amoxicillin (From Augmentin) Allergy ADR-Gastrointestinal Verified 01/02/25 21:43 Upset clavulanic acid (From Allergy ADR-Gastrointestinal Verified 01/02/25 21:43 Augmentin) Upset metoclopramide (From Reglan) AdvReac ADR-Anxiety Verified 01/16/24 13:22 Review of Systems 2 General: Reports: 10 or more systems reviewed and unremarkable except in HPI and below Const: Denies: fever(s), chills, change in appetite, change in weight or diaphoresis ENMT: Denies: throat pain or hoarseness Card: Denies: chest pain, palpitations or lightheadedness Resp: Denies: dyspnea, productive cough or wheezing GI: Reports: abdominal pain, nausea and diarrhea; Denies: vomiting, hematemesis or hematochezia : Denies: flank pain, difficulty voiding, dysuria, urinary frequency or urinary urgency Musc: Denies: neck pain or back pain Skin/Breast: Denies: rash or new lesions Neuro: Denies: headache(s) or dizziness PFSH ED 2 PFSH: Medical History Ovarian cyst Surgical History History of appendectomy Female Reproductive History: Date of last menstrual period: 12/01/24 Physical Exam 2 Const: COMMON NORMALS: patient oriented x3, no limitations, alert and well nourished GENERAL APPEARANCE: cooperative and comfortable O RIENTATION/CONSCIOUSNESS: Yes awake OTHER: Diaphoretic, tired appearing HENMT: COMMON NORMALS: normocephalic, atraumatic, hearing grossly normal bilaterally and moist oral mucous membranes HEAD & SCALP: normocephalic and atraumatic Eye: COMMON NORMALS: Equal, round and reactive pupils present, EOMs intact bilaterally, conjunctivae normal and normal visual jacome by confrontation C ONJUNCTIVA: Yes conjunctivae normal PUPIL: Yes Equal, round and reactive pupils present Neck/C-Spine: COMMON NORMALS: full ROM, supple, no meningeal signs and no JVD Resp: COMMON NORMALS: normal respiratory effort, No retractions, No use of accessory muscles and clear to auscultation bilaterally AUSCULTATION: clear to auscultation bilaterally, no crackles, no rales, no rhonchi and no wheezes Cardio: COMMON NORMALS: no JVD, regular rate, regular rhythm, S1 normal heart sound present, S2 normal heart sound present, No gallops present (Cardio), No clicks present (Cardio), No murmurs present (Cardio), No rub (Cardio) and Peripheral pulses 2+ throughout RATE: regular rate RHYTHM: regular rhythm HEART SOUNDS: S1 normal heart sound present and S2 normal heart sound present PERIPHERAL PULSES: Peripheral pulses 2+ throughout GI: COMMON NORMALS: Normal to inspection, nondistended, normoactive bowel sounds present, Soft to palpation, No hepatosplenomegaly present and no masses AUSCULTATION: Yes normoactive bowel sounds PALPATION: Yes Soft to palpation, Yes Tenderness to palpation present (GI) (Epigastric), No Guarding due to palpation present (GI), No Rigid due to palpation and Yes No hepatosplenomegaly present RECTAL EXAM: deferred OTHER: Postoperative laparoscopic scars well-healed. : COMMON NORMALS: Yes no CVA tenderness BLADDER/KIDNEY EXAM: Yes no CVA tenderness Back/Pelvis: COMMON NORMALS: no CVA tenderness Extremity: COMMON NORMALS: normal to inspection and full ROM Neuro: COMMON NORMALS: patient oriented x3, moves all extremities, no focal motor deficits and no sensory deficits noted SENSORIUM/ORIENTATION: Yes alert MENINGEAL SIGNS: Yes no meningeal signs Psych: COMMON NORMALS: mental status grossly normal, cooperative and speech normal SPEECH: Yes normal speech Skin: COMMON NORMALS: no rashes or lesions noted GENERAL SKIN EXAM: no rashes or lesions noted Course 2 Vital Signs: Vital signs: Vital Signs Temperature 97.5 F L 01/02/25 21:40 Pulse Rate 73 01/02/25 21:40 Respiratory Rate 15 01/02/25 21:40 Blood Pressure 133/86 01/02/25 21:40 Pulse Oximetry 99 01/02/25 21:40 Oxygen Delivery Me thod Room Air 01/02/25 21:40 MDM - Nausea/Vomiting/Diarrhea Medical Decision Making Patient presented for couple weeks of continual abdominal pain associated with nausea and diarrhea, stating she has a constant sensation to throw up but is unable to. Had Ayse fundoplication for hiatal hernia performed in [place]. Tender to palpation epigastric region on exam, all of her labs are unremarkable. Her white count was normal, lipase was normal, no signs of anemia. Urinalysis not show any infection. Abdominal x-ray initially obtained did not show any abnormal findings. Due to your persistent pain CT ordered that showed normal postoperative changes with no signs of fluid collection or abscess otherwise, no other signs of acute surgical abdomen. She notes that her nausea was getting quite a bit better until contrast was given for the CT, will provide more Zofran and send a prescription for this as she continues to treat conservatively at home with drinking plenty of fluids and pain medications. Ultimately for her persistent pain told her to call her general surgeon in the morning to schedule close follow-up appointment and to return with any new or worsening. Vitals have remained stable throughout the ED course and she is discharged in stable condition at this time. Lab Data 01/02/25 22:47 01/02/25 22:47 Radiology Impressions Abdomen X-Ray 01/02/25 21:38 IMPRESSION: Nonobstructive bowel gas pattern. Stomach is gas filled which is nonspecific. Abdomen/Pelvis CT 01/02/25 23:24 IMPRESSION: There are changes of fundoplication procedure. There is no evidence of postsurgical complication. In particular, no abnormal fluid collection is evident and the spleen is intact. Laboratory Results WBC 10.25 10^3/uL (3.29-11.43) 01/02/25 22:47 RBC 4.71 10^6/uL (3.85-5.65) 01/02/25 22:47 Hgb 13.20 g/dL (11.27-16.99) 01/02/25 22:47 Hct 41.0 % (36-47) 01/02/25 22:47 MCV 87.0 fl (85-98) 01/02/25 22:47 MCH 28.0 pg (27-33) 01/02/25 22:47 MCHC 32.2 g/dL (30-55) 01/02/25 22:47 RDW 12.7 % (12.1-15.1) 01/02/25 22:47 Plt Count 246 10^3/cmm (157-399) 01/02/25 22:47 MPV 10.0 fL (7.4-10.4) 01/02/25 22:47 Neut % (Auto) 88.6 % 01/02/25 22:47 Lymph % (Auto) 9.2 % 01/02/25 22:47 [place] % (Auto) 1.7 % 01/02/25 22:47 Eos % (Auto) 0.0 % 01/02/25 22:47 Baso % (Auto) 0.2 % 01/02/25 22:47 Neut # (Auto) 9.09 10^3/uL (1.8-7.7) H 01/02/25 22:47 Lymph # (Auto) 0.9 10^3/uL (0.8-4.8) 01/02/25 22:47 [place] # (Auto) 0.2 10^3/uL (0.2-0.9) 01/02/25 22:47 Eos # (Auto) 0.0 10^3/uL (0.0-0.8) 01/02/25 22:47 Baso # (Auto) 0.0 10^3/uL (0.0-0.1) 01/02/25 22:47 Nucleated RBC % (auto) 0 % 01/02/25:47 Nucleated RBCs # 0.0 /100WBC 01/02/25 22:47 Sodium 139 mmol/L (136-145) 01/02/25 22:47 Potassium 3.8 mmol/L (3.5-5.1) 01/02/25 22:47 Chloride 103 mmol/L (98-107) 01/02/25 22:47 Carbon Dioxide 22 mmol/L (22-29) 01/02/25 22:47 Anion Gap 17.8 (5-19) 01/02/25 22:47 BUN 7 mg/dL (6-20) 01/02/25 22:47 Creatinine 0.6 mg/dL (0.5-0.9) 01/02/25 22:47 GFR Calculation 118.2 mL/min (90-130) 01/02/25 22:47 Glucose 151 mg/dL (65-115) H 01/02/25 22:47 Calculated Osmolality 289 mOsm/kg (285-295) 01/02/25 22:47 Lactic Acid 1.4 mmol/L (0.5-2.2) 01/02/25 22:47 Calcium 9.4 mg/dL (8.5-10.5) 01/02/25 22:47 Total Bilirubin 0.2 mg/dL (0.15-1.2) 01/02/25 22:47 AST 23 U/L (0-32) 01/02/25 22:47 ALT 43 U/L (0-33) H 01/02/25 22:47 Alkaline Phosphatase 75 U/L (35-105) 01/02/25 22:47 Total Protein 7.4 g/dL (6.6-8.7) 01/02/25 22:47 Albumin 4.5 g/dL (3.5-5.2) 01/02/25 22:47 Globulin 2.9 g/dL (1.3-4.6) 01/02/25 22:47 Lipase 18 U/L (13-60) 01/02/25 22:47 Urine Color Yellow (Yellow) 01/02/25 23:56 Urine Appearance Clear (CLEAR) 01/02/25 23:56 Urine pH 7 (5-7) 01/02/25 23:56 Ur Specific [place] 1.005 (1.005-1.030) 01/02/25 23:56 Urine Protein Neg (Negative) 01/02/25 23:56 Urine Glucose (UA) Norm (Normal) 01/02/25 23:56 Urine Ketones 2+ (Negative) H 01/02/25 23:56 Urine Blood Neg (Negative) 01/02/25 23:56 Urine Nitrate Negative (Negative) 01/02/25 23:56 Urine Bilirubin Neg (Negative) 01/02/25 23:56 Urine Urobilinogen Neg mg/dL (Negative) 01/02/25 23:56 Ur Leukocyte Esterase Negative (Negative) 01/02/25 23:56 Urine RBC 0-2 /hpf (0-2) 01/02/25 23:56 Urine WBC 0-5 /hpf (0-5) 01/02/25 23:56 Ur Squamous Epith Cells 0-5 /hpf (0-5) 01/02/25 23:56 Amorphous Sediment Not Reportable 01/02/25 23:56 Urine Bacteria None seen /hpf (NONE) 01/02/25 23:56 Hyaline Casts 0.81 /lpf 01/02/25 23:56 All radiology interpretation(s) finalized by discharge Discharge Plan Discharge Patient Disposition: Home Clinical Impression: Postoperative abdominal pain Nausea & vomiting Qualifiers: Vomiting type: unspecified Qualified Code(s): R11.2 - Nausea with vomiting, unspecified Condition: Stable Prescriptions: New ondansetron HCl 4 mg tablet 4 mg PO Q8H Qty: 30 0RF No Action norgestimate-ethinyl estradiol [Sprintec (28)] 0.25-35 mg-mcg Tablet 1 tab PO DAILY Rx Instructions: not started as of 01/04/24 levothyroxine 50 mcg tablet 50 mcg PO QAM escitalopram oxalate 10 mg tablet 10 mg PO DAILY ondansetron 4 mg tablet,disintegrating 4 mg PO Q8H PRN (Reason: nausea and vomiting) Qty: 14 0RF Discharge Orders: Discharge ED (Routine); Ordered 01/03/25 Ordered By: Goldy Mattson Referrals: Gissell Chatman MD [Primary Care Provider] - Patient Instructions: Abdominal Pain (ED) Activity Restrictions/Additional Instructions: Take Zofran for nausea, continue to drink fluids and taking pain medications at home. Please call your surgeon tomorrow to schedule follow-up appointment, and return if your pain persist or you have any other new concerns. Print Language: Yakut Coding Level of Care Code ED Cinnamon Grinder for Johana Renee
[2025-01-02 23:24] LABS: Alanine Aminotransferase 43 U/L (0-33); Albumin Level 4.5 g/dL (3.5-5.2); Alkaline Phosphatase 75 U/L (35-105); Anion Gap 17.8 (5-19); Aspartate Amino Transferase 23 U/L (0-32); Blood Urea Nitrogen 7 mg/dL (6-20); Calcium 9.4 mg/dL (8.5-10.5); Carbon Dioxide 22 mmol/L (22-29); Chloride 103 mmol/L (98-107); Creatinine Clr Calc Pharmacy 136.9796; Globulin 2.9 g/dL (1.3-4.6); Glomerular Filtration Rate 118.2 mL/min (90-130); Glucose 151 mg/dL (65-115); Lipase 18 U/L (13-60); Osmolality Calculated 289 mOsm/kg (285-295); Potassium 3.8 mmol/L (3.5-5.1); Sodium 139 mmol/L (136-145); Total Bilirubin 0.2 mg/dL (0.15-1.2); Total Protein 7.4 g/dL (6.6-8.7)
--- NOTE | 2025-01-02 23:24 | CTR_ITS ---
PROCEDURE INFORMATION: Exam: CT Abdomen And Pelvis With Contrast Exam date and time: 01/02/2025 11:31 PM Age: 29 years old Clinical indication: Abdominal pain; Epigastric; Prior surgery; Surgery date: 3-7 days post-operative; Surgery type: Hital hernia; Additional info: Post op hernia pain TECHNIQUE: Imaging protocol: Computed tomography of the abdomen and pelvis with contrast. Radiation optimization: All CT scans at this facility use at least one of these dose optimization techniques: automated exposure control; mA and/or kV adjustment per patient size (includes targeted exams where dose is matched to clinical indication); or iterative reconstruction. Contrast material: OMNI 350; Contrast volume: 80 ml; Contrast route: INTRAVENOUS (IV); COMPARISON: CT abdomen pelvis w con* [id number] 01/04/2024 11:27 AM RADIATION DOSE METRICS: Total DLP (mGy-cm): 696.98 FINDINGS: Lungs: Clear basilar lung parenchyma. Pleural spaces: No pleural fluid. Heart: Normal heart size. Liver: Normal configuration. Homogeneous parenchyma. Gallbladder and biliary ducts: No regional inflammation. No calcified stones. No ductal dilation. Pancreas: Normal. No ductal dilation. Spleen: Spleen is intact and normal in size. Adrenal glands: Normal configuration. Kidneys and ureters: Kidneys enhance symmetrically and demonstrate no evidence of mass, calculus, obstruction, or inflammation. No evidence of abnormal fluid collection at the surgical site. Stomach and bowel: Changes of fundoplication are noted. Stomach is filled with gas in the small amount of fluid. Normal caliber small bowel. Decompressed colon. Appendix: Normal appendix is confirmed. Intraperitoneal space: No free air. No significant fluid collection. Vasculature: Normal caliber arterial structures. Lymph nodes: No enlarged lymph nodes. Urinary bladder: Unremarkable as visualized. Reproductive: Physiologic appearance for age. Bones/joints: No fracture or destructive lesion. Soft tissues: Unremarkable. CT/CT abdomen pelvis w con* [id number] IMPRESSION: There are changes of fundoplication procedure. There is no evidence of postsurgical complication. In particular, no abnormal fluid collection is evident and the spleen is intact.
[2025-01-02 23:25] LABS: Lactic Sepsis W/Reflex 1.4 mmol/L (0.5-2.2)
[2025-01-02] MEDS: ketorolac 60 mg/2 mL INJ 30 MG IVP (23:28)
[2025-01-02] MEDS: iohexol 350 mg/mL 500 mL Btl (per mL) IV (23:35)
[2025-01-03 00:07] LABS: Bacteria Urine None Seen /hpf; Hyaline Casts Urine 0.81 /lpf; RBC Urine 0-2 /hpf (0-2); Squamous Epithelial Cell Urine 0-5 /hpf (0-5); WBC Urine 0-5 /hpf (0-5)
[2025-01-03 00:16] LABS: Bilirubin Urine Neg (Negative); Blood Urine Neg (Negative); Glucose Urine UA Norm (Normal); Ketones Urine 2+ (Negative); Leukocyte Esterase Urine Negative (Negative); Nitrate Urine Negative (Negative); Protein Urine Neg (Negative); Specific Gravity, Urine 1.005 (1.005-1.030); Urine Appearance Clear (CLEAR); Urine Color Yellow (Yellow); Urobilinogen Urine Neg (Negative); pH Urine 7 (5-7)
[2025-01-03] MEDS: ondansetron 2 mg/ML SDV 2 mL 4 MG IVP (00:41)
[2025-01-03 00:56] VITALS: BP 143/93; PULSE 76; O2SAT 100
[2025-01-03 00:59] VITALS: BP 143/93; PULSE 76; O2SAT 100
== END 2025-01-03 01:00 | disposition home or self-care (01) ==
PROVIDERS: Emergency Medicine; Emergency Provider Physician Assistant; PCP Internal Medicine
DX: G89.18 Other acute postprocedural pain (principal); R11.2 Nausea with vomiting, unspecified
CPT/HCPCS: 36415; 74018; 74177; 80053; 81001; 83605; 83690; 85025; 96374; 96375; 96376; 99285; J1885; J2405

== ENCOUNTER 2025-04-17 17:20 | Observation (INO) | payer OTHER, SELFPAY ==
--- OUTSIDE RECORDS SUMMARY | 2025-04-17 17:28 | XMS_ITS | Encounter Summary ---
Author Organization [facility] Address [address] [place] [address] Care Team Providers Care Support Group Manager Name Role Phone Gissell Chatman MD Primary Care Provider +1- [phone] Encounter Details Date Type Department Care Team (Late st Contact Info) Description 10/28/1998 Outpatient Historical [facility] Urban [address] [place] [address] Urinary tract infection, site not specified (Primary Dx) Social History Tobacco Use Types Packs/Day Years Used Date Smoking Tobacco: Never Assessed Comments Unknown Sex and Gender Information Value Date Recorded Sex Assigned at Not on file 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
--- OUTSIDE RECORDS SUMMARY | 2025-04-17 17:28 | XMS_ITS | Encounter Summary ---
Author Organization [facility] Address [address] [place] [address] Care Team Providers Care Sand Worker Name Role Phone Gissell Chatman MD Primary Care Provider +1- [phone] Encounter Details Date Type Department Care Team (Latest Contact Info) Description 01/08/1999 Outpatient [place] [address] [place] [address] Conjunctivitis unspecified (Primary Dx); Unspecified otitis media; Acute upper respiratory infections of other multiple sites Social History Tobacco Use Types Packs/Day Years Used Date Smoking Tobacco: Never Assessed Comments Unknown Sex and Gender Information Value Date Recorded Sex Assigned at Not on file 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
--- OUTSIDE RECORDS SUMMARY | 2025-04-17 17:28 | XMS_ITS | Encounter Summary ---
Author Organization [facility] Address [address] [place] [address] Care Team Providers Care Torpedo Specialist Name Role Phone Gissell Chatman MD Primary Care Provider +1- [phone] Encounter Details Date Type Department Care Team (Latest Contact Info) Description 01/08/2005 Outpatient [facility] Oral and Maxillo Surgery- [address] [place] [address] Arie Frias, DDS [address] [place] [address] SUBCONDYLAR FX MANDIB-CL (CMS/HCC) (Primary Dx); SURGERY FOLLOWUP, UNSPEC Social History Tobacco Use Types Packs/Day Years Used Date Smoking Tobacco: Never Assessed Comments Unknown Sex and Gender Information Value Date Recorded Sex Assigned at Not on file 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
--- OUTSIDE RECORDS SUMMARY | 2025-04-17 17:28 | XMS_ITS | Encounter Summary ---
Author Organization [facility] Address [address] [place] [address] Care Team Providers Care Sewing Machine Operator Floorperson Name Role Phone Gissell Chatman MD Primary Care Provider +1- [phone] Encounter Details Date Type Department Care Team (Late st Contact Info) Description 07/17/1998 Outpatient [place] [address] [place] [address] Acute upper respiratory infections of other multiple sites (Primary Dx) Social History Tobacco Use Types Packs/Day Years Used Date Smoking Tobacco: Never Assessed Comments Unknown Sex and Gender Information Value Date Recorded Sex Assigned at Not on file 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
--- OUTSIDE RECORDS SUMMARY | 2025-04-17 17:28 | XMS_ITS | Encounter Summary ---
Author Organization [facility] Address [address] [place] [address] Care Team Providers Care Coach Builder Name Role Phone Gissell Chatman MD Primary Care Provider +1- [phone] Encounter Details Date Type Department Care Team (Late st Contact Info) Description 11/24/1998 Outpatient [place] [address] [place] [address] Acute upper respiratory infections of other multiple sites (Primary Dx) Social History Tobacco Use Types Packs/Day Years Used Date Smoking Tobacco: Never Assessed Comments Unknown Sex and Gender Information Value Date Recorded Sex Assigned at Not on file 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
--- OUTSIDE RECORDS SUMMARY | 2025-04-17 17:28 | XMS_ITS | Encounter Summary ---
Author Organization [facility] Address [address] [place] [address] Care Team Providers Care Decal Cutter Name Role Phone Gissell Chatman MD Primary Care Provider +1- [phone] Encounter Details Date Type Department Care Team (Latest Contact Info) Description 07/06/2006 Outpatient Historical [facility] Pediatrics-[facility] [place] [address] [place] [address] Caleb West MD NO ADDRESS ON FILE Abdominal Pain, Unspecified Site (Primary Dx); Esophageal Reflux Social History Tobacco Use Types Packs/Day Years Used Date Smoking Tobacco: Never Assessed Comments Unknown Sex and Gender Information Value Date Recorded Sex Assigned at Not on file 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
--- OUTSIDE RECORDS SUMMARY | 2025-04-17 17:28 | XMS_ITS | Encounter Summary ---
Author Organization [facility] Address [address] [place] [address] Care Team Providers Care Contact Centre Supervisor Name Role Phone Gissell Chatman MD Primary Care Provider +1- [phone] Encounter Details Date Type Department Care Team (Latest Contact Info) Description 04/26/2002 Outpatient Historical [facility] Medicine [place] [facility] [address] [place] [address] Edwin Hancock MD [address] [address] OTITIS MEDIA NOS (Primary Dx); ACUTE URI NOS Social History Tobacco Use Types Packs/Day Years Used Date Smoking Tobacco: Never Assessed Comments Unknown Sex and Gender Information Value Date Recorded Sex Assigned at Not on file 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
--- OUTSIDE RECORDS SUMMARY | 2025-04-17 17:28 | XMS_ITS | Clinical Summary ---
Author Organization [employer] [facility] Address [address] Lopez: Epic Prelude ADT [place] [place] [address] Care Team Providers Care English Professor Name Role Phone Gissell Chatman MD Primary Care Provider +1- [phone] Allergies Active Allergy Reactions Criticality Noted Date Comments Amoxicillin-Pot Clavulanate Nausea and Vomiting Low 04/26/2021 Metoclopramide Hcl Anxiety Low 04/26/2021 Medications omeprazole (PriLOSEC) 40 mg Capsule, Delayed Release(E.C.) Take 1 Capsule (40 mg) by mouth daily. 30 Capsule 01/17/2024 Active bupropion HCl (WELLBUTRIN ORAL) Take 150 mg by mouth. Active prochlorperazin e maleate (COMPAZINE) 10 mg tablet Take 1 Tablet (10 mg) by mouth every 6 hours as needed for Nausea/Emesi s. 20 Tablet 01/03/2025 Active Active Problems Problem Noted Date Diagnosed Date LLQ abdominal pain 12/28/2023 Nausea and vomiting 12/28/2023 Ruptured ovarian cyst 12/27/2023 Intractable vomiting with nausea 08/30/2023 Environmental tobacco smoke exposure 11/28/2015 Immunizations Immunization Administration Dates Next Due (M-M-R II/PRIORIX)(12 MO UP) MEASLES, MUMPS AND RUBELLA VIRUS VACCINE, 0.5 ML IM/SUBCUT 05/11/2000,07/26/1996 Dt Dtp Dtap Vaccine 05/11/2000, 6,01/19/1996,1995,1995 HIB, Unspecified Formulation 07/26/1996, 01/19/1996,1995,1994 Hepatitis B Vaccine 01/19/1996,1995,1994 IPV/OPV 07/26/1996, 6,1995,1994 Family History Medical History Relation Name Comments Healthy Father Diabetes Maternal Grandmother Healthy Mother Diabetes Paternal Grandfather Healthy Paternal Grandmother Breast Cancer Neg Hx Colon Cancer Neg Hx Relation Name Status Comments Father Maternal Grandmother Mother Paternal Grandfather Paternal Grandmother Social History Tobacco Use Types Packs/Day Years Used Date Smoking Tobacco: Never Smokeless Tobacco: Never Alcohol Use Standard Drinks/Week Comments No 0 (1 standard drink = 0.6 oz pur e alcohol) Comments No Sex and Gender Information Value Date Recorded Sex Assigned at Not on file Legal Sex Female 3:51 PM DIRECTOR MEETINGS Gender Identity Not on file Sexual Orientation Not on file Last Filed Vital Signs Vital Sign Reading Time Taken Comments Blood Pressure 136/93 01/03/2025 12:00 PM CDT Pulse 103 01/03/2025 12:00 PM CDT Temperature 37 C (98.6 F) 01/03/2025 10:58 AM CDT Respiratory Rate 18 01/03/2025 10:58 AM CDT Oxygen Saturation 100% 01/03/2025 12:00 PM CDT Inhaled Oxygen Concentration - - Weight 78.9 kg (174 lb) 01/03/2025 10:58 AM CDT Height 157.5 cm (5' 2 ) 01/03/2025 10:58 AM CDT Body Mass Index 31.83 01/03/2025 10:58 AM CDT Plan of Treatment Health Maintenance Due Date Last Done Comments CERVICAL CANCER SCREENING 2016 HPV/Cotest (21-29) 2016 PAP SMEAR 2016 DTAP/TDAP/TD VACCINES (7 - Td or Tdap) 01/29/2021 01/29/2011, 05/11/2000, 06/19/1999, Additional history exists HPV/Cotest (30-65) 2025 INFLUENZA VACCINE (#1) 2025 HEPATITIS B VACCINES Completed 06/19/1999, 01/19/1996, 01/19/1996, Additional history exists HPV VACCINES Aged Out No longer eligi ble based on patient's age to complete this topic Insurance [facility] [id number] Member Subscriber Plan / Payer (Ef fective 2024-Present) Name:Sudheer Thao Relation to Subscriber:Self Name:Sudheer Thao Payer ID:[id number] (NAIC) Type:PPO Address: [facility] [id number] [place] [id number] Care Teams English Professor Relationship Specialty Start Date End Date Gissell Chatman MD [address] [place] [address] PCP - General Internal Medicine 11/11/17
--- OUTSIDE RECORDS SUMMARY | 2025-04-17 17:28 | XMS_ITS | Encounter Summary ---
Author Organization [facility] Address [address] [place] [address] Care Team Providers Care Data Collection Technician Name Role Phone Gissell Chatman MD Primary Care Provider +1- [phone] Encounter Details Date Type Department Care Team (Latest Contact Info) Description 08/20/2006 Outpatient Historical [facility] [place] [address] [place] [address] Ozzy Agarwal FNP NO ADDRESS ON FILE Streptococcal Sore Throat (Primary Dx) Social History Tobacco Use Types Packs/Day Years Used Date Smoking Tobacco: Never Assessed Comments Unknown Sex and Gender Information Value Date Recorded Sex Assigned at Not on file 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
--- OUTSIDE RECORDS SUMMARY | 2025-04-17 17:28 | XMS_ITS | Encounter Summary ---
Author Organization [facility] Address [address] [place] [address] Care Team Providers Care Networks Computer Consultant Name Role Phone Gissell Chatman MD Primary Care Provider +1- [phone] Encounter Details Date Type Department Care Team (Latest Contact Info) Description 12/11/1998 Outpatient [place] [address] [place] [address] Other general medical examination for administrative purposes (Primary Dx) Social History Tobacco Use Types Packs/Day Years Used Date Smoking Tobacco: Never Assessed Comments Unknown Sex and Gender Information Value Date Recorded Sex Assigned at Not on file 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
--- OUTSIDE RECORDS SUMMARY | 2025-04-17 17:28 | XMS_ITS | Encounter Summary ---
Author Organization [facility] Address [address] [place] [address] Care Team Providers Care Hot Roller Name Role Phone Gissell Chtaman MD Primary Care Provider +1- [phone] Encounter Details Date Type Department Care Team (Late st Contact Info) Description 01/04/2005 Outpatient Historical [facility] Oral and Maxillo Surgery[address] [place] [address] Social History Tobacco Use Types Packs/Day Years Used Date Smoking Tobacco: Never Assessed Comments Unknown Sex and Gender Information Value Date Recorded Sex Assigned at Not on file 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
--- OUTSIDE RECORDS SUMMARY | 2025-04-17 17:28 | XMS_ITS | Encounter Summary ---
Author Organization [facility] Address [address] [place] [address] Care Team Providers Care Salt Machine Operator Name Role Phone Gissell Chatman MD Primary Care Provider +1- [phone] Encounter Details Date Type Department Care Team (Latest Contact Info) Description 02/11/2004 Outpatient Historical [facility] [place] [address] [place] [address] Caleb West MD NO ADDRESS ON FILE DERMATITIS NOS (Primary Dx) Social History Tobacco Use Types Packs/Day Years Used Date Smoking Tobacco: Never Assessed Comments Unknown Sex and Gender Information Value Date Recorded Sex Assigned at Not on file 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
--- OUTSIDE RECORDS SUMMARY | 2025-04-17 17:28 | XMS_ITS | Encounter Summary ---
Author Organization [facility] Address [address] [place] [address] Care Team Providers Care Sail Repairer Name Role Phone Gissell Chatman MD Primary Care Provider +1- [phone] Encounter Details Date Type Department Care Team (Latest Contact Info) Description 01/04/2005 Outpatient Historical [facility] Pediatric[facility] [place] [address] [place] [address] Caleb West MD NO ADDRESS ON FILE INJURY OF FACE AND NECK (Primary Dx); MANDIBLE FX NOS-CLOSED (CMS/HCC) Social History Tobacco Use Types Packs/Day Years Used Date Smoking Tobacco: Never Assessed Comments Unknown Sex and Gender Information Value Date Recorded Sex Assigned at Not on file 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
--- OUTSIDE RECORDS SUMMARY | 2025-04-17 17:28 | XMS_ITS | Encounter Summary ---
Author Organization [facility] Address [address] [place] [address] Care Team Providers Care Cattle Inspector Name Role Phone Gissell Chatman MD Primary Care Provider +1- [phone] Encounter Details Date Type Department Care Team (Latest Contact Info) Description 07/06/[address] 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
--- OUTSIDE RECORDS SUMMARY | 2025-04-17 17:28 | XMS_ITS | Encounter Summary ---
Author Organization [facility] Address [address] [place] [address] Care Team Providers Care Public Health Assistant Name Role Phone Gissell Chatman MD Primary Care Provider +1- [phone] Encounter Details Date Type Department Care Team (Latest Contact Info) Description 05/30/2007 Outpatient Historical [facility] Urgent Care- [facility] [place] [address] [place] [address] Tom Rodney, ASSISTANT MANAGER PT [address] [address] Streptococcal Sore Throat (Primary Dx) Social History Tobacco Use Types Packs/Day Years Used Date Smoking Tobacco: Never Assessed Comments Unknown Sex and Gender Information Value Date Recorded Sex Assigned at Not on file 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
--- OUTSIDE RECORDS SUMMARY | 2025-04-17 17:28 | XMS_ITS | Encounter Summary ---
Author Organization [facility] Address [address] [place] [address] Care Team Providers Care Accountant Bookkeeper Name Role Phone Gissell Chatman MD Primary Care Provider +1- [phone] Encounter Details Date Type Department Care Team (Late st Contact Info) Description 10/10/2007 Outpatient Historical [facility] [place] [address] [place] [address] Yusef Huynh MD [address] [place] [address] Social History Tobacco Use Types Packs/Day Years Used Date Smoking Tobacco: Never Assessed Comments Unknown Sex and Gender Information Value Date Recorded Sex Assigned at Not on file 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
--- OUTSIDE RECORDS SUMMARY | 2025-04-17 17:28 | XMS_ITS | Clinical Summary ---
Author Organization [facility] Address [address] [place] [address] Care Team Providers Care Attendant Arcade Name Role Phone Gissell Chatman MD Primary Care Provider [phone]- [phone] Allergies No known active allergies Medications fluticasone (FLONASE) 50 mcg/spray [place], SuspensionIndic ations:Otalgia, right Administer 2 Sprays in each nostril daily. 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 Gender Identity Not on file Sexual Orientation Not on file Occupation Industry Job Start Date Job End Date Not on file Not on file Not on file Not on file Last Filed Vital Signs Vital Sign Reading Time Taken Comments Blood Pressure 128/84 04/18/2018 4:23 PM CDT Pulse 78 04/18/2018 4:23 PM CDT Temperature 37 C (98.6 F) 04/18/2018 4:23 PM CDT Respiratory Rate 16 04/18/2018 4:23 PM CDT Oxygen Saturation 98% 04/18/2018 4:23 PM CDT Inhaled Oxygen Concentration - - Weight 74.4 kg (164 lb) 04/18/2018 4:23 PM CDT Height 160 cm (5' 3 ) 04/18/2018 4:23 PM CDT Body Mass Index 29.05 04/18/2018 4:23 PM CDT Plan of Treatment Health Maintenance Due Date Last Done Comments DTAP/TDAP/TD VACCINES (6 - Tdap) 2006 05/11/2000, 07/26/1996, 01/19/1996, Additional history exists CERVICAL CANCER SCREENING 07/20/2016 PAP SMEAR 07/20/2016 07/20/2013 HPV/Cotest (21-29) 07/20/2018 07/20/2013 HPV/Cotest (30-65) 2025 07/20/2013 INFLUENZA VACCINE (#1) 2025 HEPATITIS B VACCINES Completed 01/19/1996, 1995, 1995 HPV VACCINES Aged Out No longer eligi ble based on patient's age to complete this topic Procedures Procedure Name Priority Date/Time Associated Diagnosis Comments CERV/VAG CYTOPATH, THIN PREP IMAGR RFLX HPV Routine 07/20/2013 3:15 PM CDT from Last 3 Months or Most Recently Relevant to Health Maintenance Results * CERV/VAG CYTOPATH, THIN PREP IMAGR RFLX HPV (07/20/2013 3:15 PM CDT) Pathologist [facility] TRASH COLLECTOR CYTOLOGY REPORT REFLEX HPV [facility] [address] [facility] [address] Patient: SOLITARIO THAO Accn No: [id number] , [id number] Collected: 07/20/2013 3:15:00 PM All cases except those with a DP prefix are performed by pathologists from [facility] at [facility]. Case type DP is performed by Dr. Ifeanyi Granda, [facility] [place] [address] [address] (CLIA #[id number]) (Ph. [phone]). TRASH COLLECTOR PAP - REFLEX HPV History Specimen Type: Endocervical LMP: 07/06/13 Previous Pap History: 1ST Specimen Adequacy Satisfactory for interpretation. The smear lacks endocervical or metaplastic cells. Diagnosis NEGATIVE FOR INTRAEPITHELIAL LESION OR MALIGNANCY. Fungal organisms morphologically consistent with Smiley. Hose Handler/ ROSAM Pathologist: 08/01/13 Completed by: VALERI ZAPATA BSCT(ASCP) (Electronically signed by) 08/01/13 Comment Routine follow-up is suggested. Important Information About Pap Smears The Pap smear is associated with a low but well-documented and probably irreducible false negative rate of up to 10%. Additionally, the false positive rate for a diagnosis of invasive carcinoma or HSIL has been estimated to be approximately 1-10%. Therefore, any visible lesion on the cervix should be biopsied regardless of Pap smear findings. HPV Testing off the Thin Prep vial can be done as a means of further evaluating a Thin Prep Report. For information about ordering the HPV test, phone Virology at . Treatment or follow-up recommendations (if any) that are contained within this report are based upon general recommendations as contained in 2001 Consensus Guidelines For Cervical Cytological Abnormalities SOUMYA: January 24, 2002, and are provided as a general guideline rather than as a specific recommendation. Final decisions about the most appropriate treatment and follow-up should be made on an individualized basis by the treating physician in consultation with his/her patient. [facility] 07/20/2013 3:15 PM CDT Yamileth Boudreaux ANESTHESIOLOGIST ASSISTANT CERTIFIED PATHOLOGY/CYTOLOG Y ORDERABLES Edited Result - Final INTERFACE SYSTEM Refer to clinic/hospital department [facility]ORATORY SERVICES [facility] CLIA# [id number] [address] [place] [address] from Last 3 Months or Most Recently Relevant to Health Maintenance Insurance [employer] [place] [employer] Care Teams Attendant Arcade Relationship Specialty Start Date End Date Gissell Chatman MD [address] [place] [address] PCP - General Internal Medicine 11/11/17
--- OUTSIDE RECORDS SUMMARY | 2025-04-17 17:28 | XMS_ITS | Encounter Summary ---
Author Organization 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
--- OUTSIDE RECORDS SUMMARY | 2025-04-17 17:28 | XMS_ITS | Encounter Summary ---
Author Organization [facility] Address [address] [place] [address] Care Team Providers Care Retread Supervisor Name Role Phone Gissell Chatman MD Primary Care Provider +1- [phone] Encounter Details Date Type Department Care Team (Latest Contact Info) Description 05/18/2006 Outpatient Historical [facility] [address] [place] [address] Ozzy Agarwal FNP NO ADDRESS ON FILE Other and Unspecified Noninfectious Gastroenteritis and Colitis (Primary Dx) Social History Tobacco Use Types Packs/Day Years Used Date Smoking Tobacco: Never Assessed Comments Unknown Sex and Gender Information Value Date Recorded Sex Assigned at Not on file 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
--- OUTSIDE RECORDS SUMMARY | 2025-04-17 17:28 | XMS_ITS | Encounter Summary ---
Author Organization [facility] Address [address] [place] [address] Care Team Providers Care Prepared Foods Team Leader Name Role Phone Gissell Chatman MD Primary Care Provider +1- [phone] Encounter Details Date Type Department Care Team (Latest Contact Info) Description 07/04/2006 Outpatient Historical [facility] [address] [place] [id number] Caleb West MD NO ADDRESS ON FILE Abdominal Pain, Unspecified Site (Primary Dx); Urinary Tract Infection, Site not Specified Social History Tobacco Use Types Packs/Day Years Used Date Smoking Tobacco: Never Assessed Comments Unknown Sex and Gender Information Value Date Recorded Sex Assigned at Not on file 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
--- OUTSIDE RECORDS SUMMARY | 2025-04-17 17:28 | XMS_ITS | Data Portability ---
Author Organization [facility] Address [address] [address] Care Team Providers Care Manager Furniture Name Role Phone STEPHEN SAUNDERS Primary Care Provider Assessment No assessment recorded. Plan of Treatment Reminders Order Date Submit Date Provider Last Modified By Organization Details Last Modified Time Details Appointments ACUTE VISIT 2024 05:00P M WALK-IN Not available Not available Not available Lab rapid flu (A+B), PCR 2024 025 [facility] [address] [place] [address], [phone], 11/06/2024 08:50:42 Referral None recorded. Procedures None recorded. Surgeries None recorded. Imaging None recorded. Medication Orders ondansetr on HCl (PF) 4 mg/2 mL injection solution 2024 025 [email or web address] Not available 04/17/2025 18:10:00 ondansetr on 4 mg disintegr ating tablet 2024 025 [facility], [address], [place], [address], 03/01/2025 08:18:19 Compazine 10 mg tablet 2024 025 [facility] [address], [address], [place], [address], 03/01/2025 08:18:21 metoclopr amide 5 mg/5 mL oral solution 2024 025 [facility] [address], [address], [place], [address], 03/01/2025 15:58:23 ondansetr on HCl (PF) 4 mg/2 mL injection solution 2024 025 [email or web address] Not available 04/17/2025 18:10:00 promethaz ine 12.5 mg rectal supposito ry 2024 025 [email or web address] [facility], [address] [facility] [address], [place], [place], [id number], 04/17/2025 18:10:03 Patient TargetsNo targets recorded. Patient InstructionsNo instructions recorded. Reason for Referral None Reported. Results Created Date Observation Date Name Description Value Unit Range Abnormal Flag Note LastModifiedBy Organization Detail LastModifiedTime 09/13/2009/13/2024 URINA LYSIS WITH MICRO color YELLOW Not Available [facility] [address] [facility] [address], [place], [address], 09/13/2024 10:06:38 09/13/20 24 09/13/2024 URINA LYSIS WITH MICRO clarity CLEAR Not Available [facility] [address] [facility] [address], [place], [address], 09/13/2024 10:06:38 09/13/20 24 09/13/2024 URINA LYSIS WITH MICRO glu NEGATI VE Not Available [facility] [address] [facility] [address], [place], [address], 09/13/2024 10:06:38 09/13/20 24 09/13/2024 URINA LYSIS WITH MICRO bili NEGATI VE Not Available [facility] [address] [facility] [address], [place], [address], 09/13/2024 10:06:38 09/13/20 24 09/13/2024 URINA LYSIS WITH MICRO ket NEGATI VE Not Available [facility] [address] [facility] [address], [place], [address], 09/13/2024 10:06:38 09/13/20 24 09/13/2024 URINA LYSIS WITH MICRO S.g 1.030 1.005- 1.025 high Not Available [facility] [address], [place], [address], 09/13/2024 10:06:38 09/13/20 24 09/13/2024 URINA LYSIS WITH MICRO pH 6.0 5.0-7. 0 Not Available [facility] [address], [place], [address], 09/13/2024 10:06:38 09/13/20 24 09/13/2024 URINA LYSIS WITH MICRO pro NEGATI VE Not Available [facility] [address], [place], [address], 09/13/2024 10:06:38 09/13/20 24 09/13/2024 URINA LYSIS WITH MICRO uro 0.2 Not Available [facility] [address], [place], [address], 09/13/2024 10:06:38 09/13/20 24 09/13/2024 URINA LYSIS WITH MICRO nit NEGATI VE Not Available [facility] [address], [place], [address], 09/13/2024 10:06:38 09/13/20 24 09/13/2024 URINA LYSIS WITH MICRO blo NEGATI VE Not Available [facility] [address], [place], [address], 09/13/2024 10:06:38 09/13/20 24 09/13/2024 URINA LYSIS WITH MICRO ashley NEGATI VE Not Available [facility] [address] [facility], [place], [address], 09/13/2024 10:06:38 09/13/20 24 09/13/2024 URINA LYSIS WITH MICRO WBC 4-5 abnormal Not Available [facility] [address] [facility] [address], [place], [address], 09/13/2024 10:06:38 09/13/20 24 09/13/2024 URINA LYSIS WITH MICRO RBC 3-4 abnormal Not Available [facility] [address] [facility] [address], [place], [address], 09/13/2024 10:06:38 09/13/20 24 09/13/2024 URINA LYSIS WITH MICRO epi cells 10-12 abnormal Not Available [facility] [address] [facility] [address], [place], [address], 09/13/2024 10:06:38 09/13/20 24 09/13/2024 URINA LYSIS WITH MICRO bacteria TRACE OF MUCUS THREAD S abnormal Not Available [facility] [address] [facility] [address], [place], [address], 09/13/2024 10:06:38 09/13/20 24 09/13/2024 URINA LYSIS WITH MICRO other NEGATI VE Not Available [facility] [address] [facility] [address], [place], [address], 09/13/2024 10:06:38 09/13/20 24 09/15/2024 CULTU RE, URINE , ROUTI NE culture, urine, routine SEE NOTE CULTU RE, URINE , ROUTI NE Micro Numbe r: [id number] Test Statu s: Final Speci men Sourc e: Urine Speci men Quali ty: Adequ ate Resul t: No Growt h Not Available [facility] [address] [address], [place], [address], 09/15/2024 02:07:22 11/06/19 25 11/06/2024 rapid flu (A+B) , PCR Influenza A positi ve Not Available [facility] ([facility]) [address] [place], [address], 11/06/2024 08:38:44 11/06/19 25 11/06/2024 rapid flu (A+B) , PCR Influenza B negati ve Not Available [facility] ([facility]) [address] [place], [address], 11/06/2024 08:38:44 09/19/20 24 09/06/2024 colon oscop y proce dure (PROC ) No observ ation record ed. [address] [place], [address], 09/19/2024 13:13:54 09/19/20 24 09/06/2024 upper endos copy proce dure (EGD) (PROC ) No observ ation record ed. [address] [place], [address], 09/19/2024 13:13:55 10/11/19 25 10/10/2024 US, zay sims No observ ation record ed. [email or web address] [facility] [address] [place], [address], 10/15/2024 13:39:17 10/11/19 25 10/10/2024 US, abdom en No observ ation record ed. [email or web address] [facility] [address] [place], [address], 10/19/2024 11:08:47 Result Notes None recorded. Problems Name Problem SNOMED Code Status Onset Date Resolution Date Notes Provider Name and Address Organization Details Recorded Time Diverticu litis of colon 370318514 Active 2015 Diverticu litis Of Colon; 6 9:17AM by Fide Shell LPN, Office Visit; Promoted; acuity set as *; Not Available [facility] 3 03:15:24 Contact dermatiti s 09879778 Active 2022 Bishnu Alvarado MD [address] [place], [address] , [facility] 3 08:16:37 Dark stools 57068575 Active 2023 DMITRY connell, [facility] 4 14:18:05 Nausea and vomiting 40705437 Active 2023 Angel connell [facility] 4 12:30:11 Chronic diarrhea 871902615 Active 2023 Angel connell [facility] 4 12:33:36 Acid reflux 057465497 Active 2023 Angel Urrutia [facility], [facility] 4 12:33:37 Blood-tin ged feces 01732096293 4102 Active 2023 Angel Urrutia [facility] 4 12:33:38 Abdominal pain 42507619 Active 2023 Everardo Sylvester DO [address] [place] [address], [address] , [facility] 4 09:57:52 Hiatal hernia 03773035 Active 2023 Everardo Sylvester DO [address] [place] [address], [address] , [facility] 4 09:57:53 Problem Notes None recorded. Procedures Surgical History Date Name Laterality Status Provider Name and Address Organization Details Recorded Time 5 hernia repair completed LALA HERRERA [facility] 03/01/2025 08:09:01 Appendectomy completed JERAD MOSQUEDARed LOUIS [facility] 10/18/2023 11:18:35 Imaging Results None recorded. Procedure Notes None recorded. Medical Equipment None Reported. Allergies Allergen ID Allergen Name Allergen Category Reaction Reaction Severity Criticality Documentation Date Start Date Code Code System Note Provider Name and Address Organization Details Recorded Time 3194 Augmentin medicatio n Not available Not available Not available 02/16/2023 96229 2 RxNorm Angel Urrutia ko [facility] 17:49:59 Medications Name Sig Start Date Stop Date Status Note LastModified by Organization Details LastModified Time diphenhydra mine 12.5 mg/5 mL oral liquid TAKE 5 ML BY MOUTH EVERY 8 HOURS NEEDED FOR ALLERGIES 08/22 completed Not Available Not Available Not Available azithromyci n 250 mg tablet TAKE 2 TABLETS (500 MG) BY ORAL ROUTE ONCE DAILY FOR 1 DAY THEN 1 TABLET (250 MG) BY ORAL ROUTE ONCE DAILY FOR 4 DAYS 10/18 completed Not Available Not Available Not Available fluconazole 150 mg tablet TAKE 1 TABLET BY MOUTH ONCE EVERY 3 DAYS FOR 2 WEEKS 08/22 completed Not Available Not Available Not Available benzonatate 200 mg capsule Take 1 capsule 3 times a day by oral route as needed for 10 days. 10/18 completed Not Available Not Available Not Available sucralfate 100 mg/mL oral suspension TAKE 10 ML BY MOUTH EVERY 6 HOURS FOR 5 DAYS 08/22 completed Not Available Not Available Not Available promethazin e 25 mg rectal suppository Insert 1 supposito ry 3 times a day by rectal route as needed for 2 days. 04/03 completed Not Available Not Available Not Available prochlorper azine maleate 5 mg tablet TAKE 1 TABLET BY MOUTH EVERY 8 HOURS NEEDED FOR NAUSEA /EMESIS. TAKE TOGETHER WITH LIQUID BENADRYL. 08/22 completed Not Available Not Available Not Available ondansetron HCl 8 mg tablet Take 1 tablet 3 times a day by oral route as needed, for nausea/vo miting. 11/06 completed Not Available Not Available Not Available ondansetron HCl 4 mg tablet TAKE 1 TABLET BY MOUTH EVERY 6 HOURS NEEDED FOR NAUSEA AND VOMITING 08/22 completed Not Available Not Available Not Available Compazine 10 mg tablet Take 1 tablet 3 times a day by oral route as needed, for nausea. 2024 active Not Available Not Available Not Avai lable metoclopram luz 5 mg/5 mL oral solution Take 5 mL 4 times a day by oral route for 30 days, for take 5 ml 15 minutes prior to each meal and then before bedtime. 2024 active Not Available Not Available Not Avai lable metronidazo le 500 mg tablet Take 1 tablet twice a day by oral route for 7 days. 09/12 completed Not Available Not Available Not Available betamethaso ne acetate and sodium phos 6 mg/mL suspension for injection Take 1 mL by injection route. 06/05 completed Not Available Not Available Not Available metoclopram luz 5 mg tablet TAKE 1 TABLET BY MOUTH THREE TIMES DAILY NEEDED FOR NAUSEA/EM ESIS 08/22 completed Not Available Not Available Not Available promethazin e 12.5 mg rectal suppository Insert 1 supposito ry every 8 hours by rectal route as needed, for nausea, vomiting. 04/17 completed Not Available Not Available Not Available levothyroxi ne 50 mcg tablet TAKE 1 TABLET BY MOUTH ONCE DAILY 08/22 completed Not Available Not Available Not Available pantoprazol e 40 mg tablet,patricia yed release Take 1 tablet twice a day by oral route for 30 days. 03/01 completed Not Available Not Available Not Available promethazin e 25 mg/mL injection solution Take 1 mL every day by injection route for 1 day. 04/03 completed Not Available Not Available Not Available polymyxin B sulfate 10,000 unit-trimet hoprim 1 mg/mL eye drops INSTILL 1 DROP INTO AFFECTED EYE(S) BY OPHTHALMI C ROUTE EVERY 6 HOURS 04/03 completed Not Available Not Available Not Available omeprazole 20 mg capsule,del ayed release Take 1 capsule every day by oral route for 90 days. 08/08 completed Not Available Not Available Not Available dexamethaso ne sodium phosphate 4 mg/mL injection solution Inject 1 mL by intramusc ular route. 10/18 completed Not Available Not Available Not Available ondansetron 4 mg disintegrat ing tablet Place 1 tablet 3 times a day by transling ual route, for nausea, vomiting. 2024 active Not Available Not Available Not Avai lable cefdinir 300 mg capsule TAKE 1 CAPSULE BY MOUTH EVERY 12 HOURS FOR 7 DAYS 08/08 completed Not Available Not Available Not Available fluticasone propionate 50 mcg/actuati on nasal spray,suspe nsion [place] 1 spray every day by intranasa l route. 04/03 completed Not Available Not Available Not Available dicyclomine 10 mg capsule Take 1 capsule 3 times a day by oral route as needed. 11/06 completed Not Available Not Available Not Available amoxicillin 875 mg-potassiu m clavulanate 125 mg tablet Take 1 tablet twice a day by oral route for 10 days. 11/06 completed Not Available Not Available Not Available escitalopra m 10 mg tablet TAKE 1 TABLET BY MOUTH ONCE DAILY 08/22 completed Not Available Not Available Not Available Sprintec (28) 0.25 mg-0.035 mg tablet TAKE 1 TABLET BY MOUTH ONCE DAILY active Not Available Not Available No t Available Tri-Sprinte c (28) 0.18 mg(7)/0.215 mg(7)/0.25 mg(7)-0.035 mg tablet TAKE 1 TABLET BY MOUTH ONCE DAILY 08/08 completed Not Available Not Available Not Available ondansetron HCl (PF) 4 mg/2 mL injection solution Take 2 mL by injection route. 04/17 completed Not Available Not Available Not Available Vitals Date Recorded Body height Body mass index (BMI) Body weight Oxygen saturation Oxygen saturation in Arterial blood by Pulse oximetry Heart rate Respiratory rate Body temperature Systolic And Diastolic Provider Name and Address Organization Details Last Updated DateTime 5 157.48 cm 34.4 kg/m2 37983.3 7 g 98 % 98 % 103 /min 16 /min 98.4 [degF] 122/64 mm[Hg] Ondinabhavesh Dacosta [facility] 5 08:41:07 Date Recorded Body height Body mass index (BMI) Body weight Oxygen saturation Oxygen saturation in Arterial blood by Pulse oximetry Heart rate Body temperature Systolic And Diastolic Provider Name and Address Organization Details Last Updated DateTime 5 157.48 cm 32.9 kg/m2 80532.6 3 g 99 % 99 % 104 /min 98.6 [degF] 116/64 mm[Hg] Sharri Claudio [facility] 5 15:12:20 Date Recorded Body height Body mass index (BMI) Body weight Oxygen saturation Oxygen saturation in Arterial blood by Pulse oximetry Heart rate Body temperature Respiratory rate Systolic And Diastolic Provider Name and Address Organization Details Last Updated DateTime 5 157.48 cm 31.3 kg/m2 76776.3 g 95 % 95 % 102 /min 98.6 [degF] 17 /min 118/60 mm[Hg] LALA SHARON [facility] 5 08:07:35 Date Recorded Body height Oxygen saturation Oxygen saturation in Arterial blood by Pulse oximetry Heart rate Respiratory rate Body temperature Systolic And Diastolic Provider Name and Address Organization Details Last Updated DateTime 5 157.48 cm 98 % 98 % 104 /min 18 /min 98.2 [degF] 122/66 mm[Hg] Ondina Hancockisabella [facility] 5 18:09:41 Social History Question Answer Notes LastModified by [employer] Details LastModified Time Tobacco Smoking Status Former Smoker LALA SHARON connell [facility] 03/01/2025 08:08:35 What Was The Date Of Your Most Recent Tobacco Screening? 04/17/2025 [email or web address] Information not available 04/17/2025 Sex: Unknown Functional Status Question Answer Note LastModified by [employer] Details LastModified Time Do you use any illicit or recreational drugs? No Information not available 04/03/2024 What is your level of alcohol consumption? None Information not available 04/03/2024 Mental Status None recorded. Family History Nothing Reported. Medical History Condition Response Coronary Artery Disease N Other N Gout N Kidney Stones N Blood Diseases N Hyperthyroidism N Breast Cancer N Blood Transfusion N Hypothyroidism N Depression N COPD N Lung Disease N Defects or Inherited Disease N Developmental or Behavioral Disorders N Breast Problem N Difficulty Swallowing N Anesthesia Complications N Anxiety Disorder N Meniere's disease N Muscle, Joint, or Bone Problems N Vision or Eye Problems N Arthritis N Polyps N Infertility N Cancer N Varicosities N Stroke N Endometriosis N Bladder or Kidney Problems N High Cholesterol N Liver Disease N Headaches N Fibromyalgia N Kidney Disease N Allergies/Hayfever N Heart Problems N Ear or Hearing Problems N Hospitalizations N Thyroid Problems N GI Problems N ADD/ADHD N Skin Problems N Eating Disorder N Anemia N Constipation N Mental Illness N Ovarian Cancer N Diabetes N Bedwetting N Seizures/Epilepsy N Tuberculosis N Eczema N Diverticulitis N Abuse/Domestic Violence N Asthma N Reflux/GERD N Hepatitis N Heart Disease N Pulmonary Embolism N Chronic Ear Infections N Pre-Eclampsia N Hypertension N Chicken Pox N Autism Spectrum Disorder (ASD) N Osteoporosis N Thrombophilias N Gynecological HistoryNo gynecological history recorded. Obstetrics History GPAL:G 0 P 0 0 0 0 Immunizations Vaccine Type Date Status Note Provider Nam e and Address Organization Details Recorded Time MMR 05/11/2000 oriana connell [facility] [place] 09/19/2023 15:21:35 MMR 07/26/1996 completed YAS connell [facility] [place] 09/19/2023 15:21:35 Tdap 01/29/2011 completed YAS connell [facility] [place] 09/19/2023 15:21:35 DTP 1995 completed YAS connell [facility] [place] 09/19/2023 15:21:35 DTP 01/19/1996 completed YAS connell [facility] [place] 09/19/2023 15:21:35 DTP 1995 completed TAMATHA GREEN null, [facility] 09/19/2023 15:21:35 Hep B, unspecified formulation 01/19/1996 completed TAMATHA GREEN null, [facility] 09/19/2023 15:21:35 Hep B, unspecified formulation 1995 completed TAMATHA GREEN null, [facility] 09/19/2023 15:21:35 OPV 1995 completed TAMATHA GREEN null, [facility] 09/19/2023 15:21:35 OPV 01/19/1996 completed TAMATHA GREEN null, [facility] 09/19/2023 15:21:35 OPV 1995 completed TAMATHA GREEN null, [facility] 09/19/2023 15:21:35 polio, unspecified formulation 07/26/1996 completed TAMATHA GREEN null, [facility] 09/19/2023 15:21:35 DTP-Hib 07/26/1996 completed TAMATHA GREEN null, [facility] 09/19/2023 15:21:35 Hep B, adolescent or pediatric 1995 completed TAMATHA GREEN null, [facility] 09/19/2023 15:21:35 Hib (PRP-T) 1995 completed TAMATHA GREEN null, [facility] 09/19/2023 15:21:35 Hib (PRP-T) 01/19/1996 completed TAMATHA GREEN null, [facility] 09/19/2023 15:21:35 Hib (PRP-T) 1995 completed TAMATHA GREEN null, [facility] 09/19/2023 15:21:35 DTaP 05/11/2000 completed YAS connell [facility] [place] 09/19/2023 15:21:35 Past Encounters Encounter ID Performer Location Encounter Start Date Encounter Closed Date Diagnosis/Indication Diagnosis SNOMED-CT Code Diagnosis ICD10 Code Diagnosis Note [id number] DOLORES TEE [facility] ([facility]) [address] [place] [address] [id number] 5 02/16/2023 17:39:26 02/16/2023 18:38:29 Nausea and vomiting 23687594 R11.2 [id number] MICHELLE FORREST [facility] ([facility]) [address] [place] [address] [id number] 5 04/01/2023 12:42:36 04/17/2023 21:16:38 Seasonal allergic rhinitis 146168420 J30.2 Continue daily Zyrtec and start daily Flonase. Can take tylenol/ib uprofen as needed for pain and fevers. Discussed with patient that viral coughs can last 6-8 weeks. Recommend increasing fluids and using cool mist humidifier at night. If worsening condition or no improvemen t in 7-10 days, return for further evaluation . [id number] ROLY SWANSON NP [facility] ([facility]) [address] [place] [id number] 5 04/14/2023 11:36:37 04/14/2023 14:43:31 Dysuria 56590071 R30.0 Discussed UA results negative except trace of mixed char.Urin e culture ordered - will notify of any resultsEdu cated patient on increasing PO fluids of water, decreasing caffeine and sugary drinks.Dis cussed importance of avoiding baths, scented soaps, douching, perfumes.M ay take OTC AZO for 1-2 days as box directs for burning sensation. Discussed if developmen t of abdominal pain, flank pain, fever, vomiting, worsening symptoms return to walk-in, PCP or ED for re-evaluat ion. Return to clinic if any changes, any worsening, any concernsPa tient verbalized understand ing of plan. [id number] Bishnu Alvarado MD [facility] ([facility]) [address] [place] [address] [id number] 5 06/21/2023 08:07:08 06/21/2023 08:27:05 Contact dermatitis 06129071 L25.9 Rash is consistent with contact dermatitis . Request steroid injection to help with symptoms. Continue as needed topical hydrocorti sone and/or Benadryl to help with symptoms as well. [id number] LESLIE VELASQUEZ [facility] ([facility]) [address] [place] [address] [id number] 5 09/19/2023 14:41:11 09/19/2023 16:44:26 Sore throat 471012368 J02.9 Negative COVID. Negative strep. Acute pharyngitis 620268 003 J02.9 Reassured with negative strep test and negativeCO VID test. Discussed with patient that this is likely viral and will have to run its course. Can take tylenol/ib uprofen as needed for pain and fevers. If worsening condition or no improvemen t in 7-10 days, return for further evaluation . Patient verbalizes understand ing. [id number] LESLIE VELASQUEZ [facility] ([facility]) [address] [place] [address] [id number] 5 09/21/2023 10:55:27 09/21/2023 12:44:42 Acute upper respiratory infection 23891214 J06.9 Start Z-pack today. Can take benzonatat e PRN for cough. Encouraged patient to push fluids and use cool mist humidifier at night. Can take tylenol/ib uprofen as needed for pain and fever. Encouraged patient to return for further evaluation if no improvemen t in 3-5 days. If severe SOB or chest pain occurs, go to ED. Patient verbalized understand ing. [id number] Marlys Luo MD [facility] ([facility]) [address] [place] [address] [id number] 5 10/18/2023 11:05:54 10/18/2023 11:51:41 Dysfunction of left eustachian tube 7836763250 739262 H69.92 OTC flonase or nasonex x 3-7 days [id number] DIEGO JOHNSON [facility] ([facility]) [address] [place] [address] [id number] 5 11/15/2023 15:24:19 11/18/2023 17:16:47 Sprain of right foot 4113934152 1639525 S93.601A Neg xray today. Discussed RICE instructio ns and f/u in 1 week if pain persists. Ibuprofen for discomfort . May purchase otc post op shoe for comfort. [id number] LESLIE VELASQUEZ [facility] ([facility]) [address] [place] [address] [id number] 12/28/2023 14:11:42 01/10/2024 21:45:04 Nausea and vomiting 28845496 R11.[address] Dill, patients PCP. Promethazi ne IM given in clinic and patient discharged with rectal promethazi ne as well. Abdominal pain 83110829 R10.9 KUB completed in clinic, shows no perforated bowel. Will have patient follow up with Dr. Dill tomorrow. Vomiting was better controlled by time of discharge. Patient did have family member with her to drive her home. If symptoms worsen or fever occurs, need to be re-evaluat ed in ED. Patient verbalizes understand ing. [id number] DIEGO JOHNSON [facility] ([facility]) [address] [place] [address] [id number] 5 01/24/2024 09:10:41 01/24/2024 10:44:06 Bacterial conjunctivitis 493881161 H10.9 counseled on dx. warm compresses and keep eyelids clean. counseled on limiting spread of illness. will start topical abx. Return to office with no improvemen t or any problems. [id number] DIEGO JOHNSON [facility] ([facility]) [address] [place] [address] [id number] 5 04/03/2024 08:21:21 04/03/2024 12:21:20 Acute gastroenteritis 37037491 K52.9 Discussed BRATS diet, small frequent sips of fluid. Rest.VSS. No signs of acute abd on exam today.If you develop fever, no urine output over 24 hours, bloody stools/rita sis, abd pain, or concerns arise return for re-eval. [id number] DIEGO JOHNSON [facility] ([facility]) [address] [place] [phone] 5 04/16/2024 17:58:42 04/16/2024 18:11:48 Contact dermatitis caused by urushiol from [place] poison debora [id number] L25.5 I counseled pt on dx of contact dermatitis , likely poison debora. pt to take a zyrtec/cla ritin every morning then benadryl at night. OTC topicals such as Debora Rest, Calamine, steroid creams, etc may be used for the itching. Return to office with no improvemen t or any problems. [id number] JO LEWIS [facility] ([facility]) [address] [place] [address] [phone] 5 05/30/2024 21:42:43 06/04/2024 08:08:00 Tuberculosis screening [id number] Z11.1 [id number] LISA KNIGHT [facility] ([facility]) [address] [place] [address] [phone] 5 06/05/2024 16:51:27 06/05/2024 18:57:10 Gastritis 7033537 K29.70 Discussed use of daily omeprazole . Zofran refilled. [id number] Everardo Sylvester DO [facility] ([facility]) [address] [place] [address] [phone] 5 08/08/2024 11:54:13 08/13/2024 10:23:30 Chronic diarrhea [id number] K52.9 Acid reflux 997045824 K2 1.9 Blood-tinged feces 57696 89942 15748 K92.1 Chronic vomiting 5824885 8 R11.10 I have reviewed and discussed colon cancer screening options, including colonoscop y. Discussed risks vs benefits including risk of infection and bleeding, perforatio n, possible need for surgery, reaction to medication s, and sever injury or . We discussed pt requiring sedation and possible general anesthesia . Pt agrees to proceed with Colonoscop y at [facility]. Preliminar y procedure date will be 09/06/24. [id number] DIEGO JOHNSON [facility] ([facility]) [address] [place] [address] [phone] 5 08/22/2024 17:02:17 08/22/2024 18:39:00 Vaginal discharge [id number] N89.8 STD testing negative today. Will start flagyl. No alcohol use with this medication . If the symptoms do not resolve or new symptoms develop return for re-evaluat ion. [id number] Everardo Sylvester DO [facility] ([facility]) [address] [place] [address] [phone] 5 09/12/2024 16:37:59 09/13/2024 13:25:48 Abdominal pain 69731703 R10.9 09/12/24- counseled possible infection post Colonoscop y, will start abx. She just finished Flagyl, shortly before procedure. She says she can take Augmentin, will write it with Bentyl to take up to 3 times daily as needed. To increase her Pantoprazo le twice daily.will get UA and culture today.Pt to go to ER with worsening symptoms, f/u with me in not significan tly improved by tuesday. Hiatal hernia 61534030 K 44.9 Large hernia on EGD with severe and refractory symptoms to high dose PPI, dietary changes and conservati ve management . Counseled on diagnosis, treatment options including medication s and possible side effects. Will refer to Surgeon for evaluation and considerat ion of surgical repair. [id number] Goran Esparza MD [facility] ([facility]) [address] [place] [address] [phone] 5 10/10/2024 08:42:38 10/10/2024 17:00:16 [id number] DIEGO JOHNSON [facility] ([facility]) [address] [place] [address] [phone] 5 11/06/2024 08:35:52 11/06/2024 10:08:51 Cough 89649554 R05.9 Influenza A virus present [id number] 08 J09.X2 Discussed to alternate tylenol/mo dima for fever control. Rest and push oral fluids.If you develop sob, wheezing, no urine output over 24 hours, or feel symptoms are worsening then please return for re-evaluat ion.May return to work/schoo l when you have no fever for 24 hours without the use of tylenol/mo dima. [id number] DIEGO JOHNSON [facility] ([facility]) [address] [place] [address] 12/13/2024 14:29:11 12/13/2024 15:45:27 Nausea [id number] R11.0 IM zofran administer ed in clinic today. Suppositor ies prescribed . No signs of post op complicati on. [id number] DIEGO JOHNSON [facility] ([facility]) [address] [place] [address] 03/01/2025 07:54:13 03/04/2025 13:09:49 Nausea [id number] R11.0 IM zofran administer ed in clinic today. Refill provided on compazine and ondansetro n.pt continues to have nausea episodes even after the hiatal hernia repair. Will trial patient on reglan and have her f/u with PCP to re-evaluat e. Health Concerns Section Related Observation LastModified by Organization Detai ls LastModified Time None Recorded Concern Status LastModified by Organization Details LastModified Time None Recorded Advance Directives Directive None Recorded Payers Insurance Date Sequence Insurance Name Policy Number Policy Lee Covered Member ID Lee Member ID Guarantor Name 04/15/2023 1 *SELF PAY* Caitlyn villavicencio M Tune 07/05/2024 1 [facility] (PPO) [id number] Sudheer M Tune [id number] Sudheer M Tune 07/05/2024 2 [facility] [facility] BREANNA Willard M Tune [id number] Sudheer M Tune 07/05/2024 1 [facility] [id number] Sudheer M Tune [id number] Sudheer M Tune 07/05/2024 1 [facility] [id number] Sudheer M Tune [id number] Sudheer M Tune 03/04/2025 1 [facility] (POS) [id number] Sudheer M Tune [id number] Sudheer M Tune 07/06/2024 1 [facility] [id number] Sudheer M Tune [id number] Sudheer M Tune Notes Date Note Type Note Provider Name and Address Organization Details Recorded Time 11/06/2024 text/html walk in patientpatient is here today for cough, sore throat, vomiting and body aches that started last night. Took a zofran this morning. Denies wheezing, sob, or diarrhea. DIEGO JOHNSON [address] [place], [address], [facility], [place]. 11/06/2024 13:46:23 12/13/2024 text/html NauseaReported bypatient.Notes:Pt had a Ayse procedure to fix a hiatal hernia yesterday in [place]. States she feels fine but around noon today she developed nausea. Some hiccups. No fever or increased pain. DIEGO JOHNSON [address] [place], [address], [facility], [place]. 12/13/2024 15:45:14 03/01/2025 text/html NauseaReported bypatient.Quality:du ll Severity:moderate Onset/Timing:abrupt onset; still present Contextno one else with similar symptoms Associated Symptoms:no diarrhea; no vomiting Pt presents today with nausea. Ate at [employer] yesterday and developed nausea about 45 min later. Had appt with GI at [facility]. Provider attributed to possible food poisoning. Took compazine and zofran last night with no relief of the nausea. denies vomiting. Had a hiatal hernia repair earlier this year. No diarrhea, fever. or abd pain. DIEGO JOHNSON [address] [place], [address], [facility], [place]. 03/02/2025 10:39:01 OBGyn Episode No OBEpisode recorded.
--- OUTSIDE RECORDS SUMMARY | 2025-04-17 17:28 | XMS_ITS | Encounter Summary ---
Author Organization [facility] Address [address] [place] [address] Care Team Providers Care Overlocker Name Role Phone Gissell Chatman MD Primary Care Provider [phone]- [phone] Encounter Details Date Type Department Care Team (Latest Contact Info) Description 02/09/2005 Outpatient [facility] Oral and Maxillo Surgery[address] [place] [address] Goran Mirza, PhD NO ADDRESS ON FILE SURGERY FOLLOWUP, UNSPEC (Primary Dx) Social History Tobacco Use Types Packs/Day Years Used Date Smoking Tobacco: Never Assessed Comments Unknown Sex and Gender Information Value Date Recorded Sex Assigned at Not on file 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
--- OUTSIDE RECORDS SUMMARY | 2025-04-17 17:28 | XMS_ITS | Encounter Summary ---
Author Organization [facility] Address [address] [place] [address] Care Team Providers Care Airline Counter Agent Name Role Phone Gissell Chatman MD Primary Care Provider [phone]- [phone] Encounter Details Date Type Department Care Team (Latest Contact Info) Description 12/05/[address] 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
[2025-04-17 17:41] VITALS: BP 128/89; PULSE 92; RESP 17; TEMP 36.5; O2SAT 96; BMI 32.0
--- NOTE | 2025-04-17 18:49 | CTR_ITS ---
PROCEDURE INFORMATION: Exam: CT Abdomen And Pelvis With Contrast Exam date and time: 04/17/2025 9:02 PM Age: 29 years old Clinical indication: Abdominal pain; Generalized; Additional info: Abd pain, nausea TECHNIQUE: Imaging protocol: Computed tomography of the abdomen and pelvis with contrast. Radiation optimization: All CT scans at this facility use at least one of these dose optimization techniques: automated exposure control; mA and/or kV adjustment per patient size (includes targeted exams where dose is matched to clinical indication); or iterative reconstruction. Contrast material: OMNIPAQUE 350; Contrast volume: 100 ml; Contrast route: INTRAVENOUS (IV); COMPARISON: CT abdomen pelvis w con* [id number] 01/02/2025 11:31 PM RADIATION DOSE METRICS: Total DLP (mGy-cm): 662.13 FINDINGS: Liver: No discrete liver lesions are apparent. Smooth hepatic contour. Gallbladder and biliary ducts: No gallbladder distension or inflammation. No calcified gallstones are apparent. No common bile duct abnormality is evident. Pancreas: No evidence of pancreatitis. No ductal dilation. Spleen: Spleen is within normal limits. Adrenal glands: Adrenal glands are within expected limits. Kidneys and ureters: No renal or ureteral calculi are identified. No hydronephrosis. Stomach and bowel: Few scattered air-fluid levels within the bowel. The stomach is also distended with an air-fluid level. Prior Ayse fundoplication is suggested. Large bowel is decompressed with the exception of the cecum. Overall pattern is not suggestive of obstruction. Appendix: No evidence of appendicitis. Intraperitoneal space: No free air. No significant fluid collection. Vasculature: No abdominal aortic aneurysm. Lymph nodes: No pathologically enlarged lymph nodes by CT size criteria. Urinary bladder: Unremarkable as visualized. Reproductive: Unremarkable as visualized. Bones/joints: No acute osseous abnormalities. Soft tissues: Unremarkable. CT/CT abdomen pelvis w con* [id number] IMPRESSION: Findings could be consistent with acute enteritis/gastroenteritis.
[2025-04-17 18:57] VITALS: BP 133/92; PULSE 70; O2SAT 100
[2025-04-17 19:00] VITALS: BP 143/108; PULSE 79; O2SAT 97
[2025-04-17 19:06] LABS: Hematocrit 40.3 % (36-47); Hemoglobin 12.90 g/dL (11.27-16.99); Mean Corpuscular HGB Conc 32.0 g/dL (30-55); Mean Corpuscular Hemoglobin 28.3 pg (27-33); Mean Corpuscular Volume 88.4 fl (85-98); Nucleated Red Blood Cells % 0 %; Platelet Count 254 10^3/cmm (157-399); Red Blood Count 4.56 10^6/uL (3.85-5.65); White Blood Count 11.74 10^3/uL (3.29-11.43)
--- NOTE | 2025-04-17 19:18 | ED_ITS ---
HPI - Abdominal Pain 2 General: Chief Complaint: Abdominal Pain Stated Complaint: vomitting, abdominal pain Time Seen by Provider: 04/17/25 18:30 History of Present Illness: 29-yo F with history of hiatal hernia re pair with Ayse fundoplication and childhood appendectomy presents with 3 days of worsening diffuse abdominal pain accompanied by persistent nausea and increased salivation as she is unable to vomit. Pain briefly improves only with certain positions but never fully resolves. She reports continued bowel movements and urine output, denies fever, denies heavy alcohol use, and notes baseline intermittent loose stools without true diarrhea. LMP was ?a couple weeks ago,? and she is on oral contraceptive pills; denies concerns. She self-administered 16 mg orally disintegrating tablets of Zofran today without relief. No recent colonoscopy abnormalities, and prior clinicians suggested possible future cholecystectomy. Symptoms prompted ED visit after trying to manage at home. Emotional state: tired but cooperative. Related Data Home Medications ?Medication ?Instructions ?Recorded ?Confirmed escitalopram oxalate 10 mg tablet 10 mg PO DAILY 01/0301/16/24 levothyroxine 50 mcg tablet 50 mcg PO QAM 01/04/24 norgestimate 0.25 mg-ethinyl 1 tab PO DAILY 01/04/24 0 01/16/24 estradiol 0.035 mg tablet (Sprintec (28)) Previous Rx's ?Medication ?Instructions ?Recorded ondansetron 4 mg disintegrating 4 mg PO Q8H PRN nausea and 01/16/24 tablet vomiting #14 tabs ondansetron HCl 4 mg tablet 4 mg PO Q8H #30 tabs 01/03 Allergies Allergy/AdvReac Type Severity Reaction Status Date / Time amoxicillin (From Augmentin) AdvReac ADR-Gastrointestinal Verified 04/17/25 17:44 Upset clavulanic acid (From AdvReac ADR-Gastrointestinal Verified 04/17/25 17:44 Augmentin) Upset metoclopramide (From Reglan) AdvReac ADR-Anxiety Verified 04/17/25 17:44 PFSH ED 2 PFSH: Medical History (Updated 04/17/25 @ 22:45 by Tanmay Alfonso MD) Ovarian cyst Surgical History History of appendectomy Physical Exam 2 Const: COMMON NORMALS: no acute distress, patient oriented x3 and alert HENMT: COMMON NORMALS: normocephalic and atraumatic HEAD & SCALP: n ormocephalic and atraumatic Eye: COMMON NORMALS: Equal, round and reactive pupils present, EOMs intact bilaterally and no scleral icterus PUPIL: Yes Equal, round and reactive pupils present Resp: COMMON NORMALS: normal respiratory effort and No retractions Cardio: COMMON NORMALS: regular rate, regular rhythm and No murmurs present (Cardio) RATE: regular rate RHYTHM: regular rhythm GI: OTHER: Abdomen is soft and nonperitoneal. Bowel sounds are present. Nonfocal, diffuse mild tenderness to palpation. No distention Neuro: COMMON NORMALS: patient oriented x3 SENSORIUM/ORIENTATION: Yes alert Skin: COMMON NORMALS: no rashes or lesions noted GENERAL SKIN EXAM: no rashes or lesions noted Course 2 Vital Signs: Vital signs: Vital Signs Temperature 97.7 F 04/17/25 17:41 Pulse Rate 84 04/17/25 23:30 Respiratory Rate 17 04/17/25 17:41 Blood Pressure 117/71 04/17/25 23:30 Pulse Oximetry 98 04/17/25 23:30 Oxygen Delivery Me thod Room Air 04/17/25 23:30 MDM - Abdominal Pain Medical Decision Making CT scan shows somewhat dilated stomach and proximal small bowel with air-fluid levels, however she has normal bowel sounds and continues to produce gas and stool. I spoke with on-call general surgery who does not feel she is suffering from small bowel obstruction and did not recommend NG tube placement as he did not feel he would provide significant relief. Given her ongoing intractable nausea and pain she will be admitted to the hospitalist service for symptomatic care Lab Data 04/17/25 18:53 04/17/25 18:53 Labs/Radiology: Radiology Impressions Abdomen/Pelvis CT 04/17/25 18:49 IMPRESSION: Findings could be consistent with acute enteritis/gastroenteritis. Laboratory Results WBC 11.74 10^3/uL (3.29-11.43) H 04/17/25 18:53 RBC 4.56 10^6/uL (3.85-5.65) 04/17/25 18:53 Hgb 12.90 g/dL (11.27-16.99) 04/17/25 18:53 Hct 40.3 % (36-47) 04/17/25 18:53 MCV 88.4 fl (85-98) 04/17/25 18:53 MCH 28.3 pg (27-33) 04/17/25 18:53 MCHC 32.0 g/dL (30-55) 04/17/25 18:53 RDW 11.9 % (12.1-15.1) L 04/17/25 18:53 Plt Count 254 10^3/cmm (157-399) 04/17/25 18:53 MPV 10.2 fL (7.4-10.4) 04/17/25 18:53 Neut % (Auto) 81.0 % 04/17/25 18:53 Lymph % (Auto) 14.5 % 04/17/25 18:53 Call[place] % (Auto) 3.7 % 04/17/25 18:53 Eos % (Auto) 0.1 % 04/17/25 18:53 Baso % (Auto) 0.4 % 04/17/25 18:53 Neut # (Auto) 9.51 10^3/uL (1.8-7.7) H 04/17/25 18:53 Lymph # (Auto) 1.7 10^3/uL (0.8-4.8) 04/17/25 18:53 Callaway # (Auto) 0.4 10^3/uL (0.2-0.9) 04/17/25 18:53 Eos # (Auto) 0.0 10^3/uL (0.0-0.8) 04/17/25 18:53 Baso # (Auto) 0.1 10^3/uL (0.0-0.1) 04/17/25 18:53 Nucleated RBC % (auto) 0 % 04/17/25 18:53 Nucleated RBCs # 0.0 /100WBC 04/17/25 18:53 Sodium 139 mmol/L (136-145) 04/17/25 18:53 Potassium 3.7 mmol/L (3.5-5.1) 04/17/25 18:53 Chloride 103 mmol/L (98-107) 04/17/25 18:53 Carbon Dioxide 20 mmol/L (22-29) L 04/17/25 18:53 Anion Gap 19.7 (5-19) H 04/17/25 18:53 BUN 9 mg/dL (6-20) 04/17/25 18:53 Creatinine 0.5 mg/dL (0.5-0.9) 04/17/25 18:53 GFR Calculation 145.9 mL/min (90-130) H 04/17/25 18:53 Glucose 128 mg/dL (65-115) H 04/17/25 18:53 Calculated Osmolality 288 mOsm/kg (285-295) 04/17/25 18:53 Lactic Acid 1.2 mmol/L (0.5-2.2) 04/17/25 18:53 Calcium 9.4 mg/dL (8.5-10.5) 04/17/25 18:53 Total Bilirubin 0.3 mg/dL (0.15-1.2) 04/17/25 18:53 AST 14 U/L (0-32) 04/17/25 18:53 ALT 13 U/L (0-33) 04/17/25 18:53 Alkaline Phosphatase 74 U/L (35-105) 04/17/25 18:53 Total Protein 7.3 g/dL (6.6-8.7) 04/17/25 18:53 Albumin 4.3 g/dL (3.5-5.2) 04/17/25 18:53 Globulin 3.0 g/dL (1.3-4.6) 04/17/25 18:53 Lipase 18 U/L (13-60) 04/17/25 18:53 HCG, Qual Negative (Negative) 04/17/25 20:48 Urine Color Yellow (Yellow) 04/17/25 20:48 Urine Appearance Clear (CLEAR) 04/17/25 20:48 Urine pH 7.0 (5-7) 04/17/25 20:48 Ur Specific Homer 1.026 (1.005-1.030) 04/17/25 20:48 Urine Protein 1+ (Negative) A 04/17/25 20:48 Urine Glucose (UA) Negative (Normal) 04/17/25 20:48 Urine Ketones 3+ (Negative) H 04/17/25 20:48 Urine Blood Negative (Negative) 04/17/25 20:48 Urine Nitrate Negative (Negative) 04/17/25 20:48 Urine Bilirubin Negative (Negative) 04/17/25 20:48 Urine Urobilinogen 1.0 mg/dL (Negative) 04/17/25 20:48 Ur Leukocyte Esterase Negative (Negative) 04/17/25 20:48 Urine RBC 0-2 /hpf (0-2) 04/17/25 20:48 Urine WBC 11-20 /hpf (0-5) H 04/17/25 20:48 Ur Squamous Epith Cells 0-5 /hpf (0-5) 04/17/25 20:48 Amorphous Sediment Not Reportable 04/17/25 20:48 Urine Bacteria Trace /hpf (NONE) 04/17/25 20:48 Hyaline Casts 4.95 /lpf 04/17/25 20:48 All radiology interpretation(s) finalized by discharge Discharge Plan Discharge Patient Disposition: Placed in Observation Admit Provider: Rajan Haque Clinical Impression: Intractable nausea, Acute epigastric pain Coding Level of Care Code ED Outside Maintenance Worker for Johana Renee
[2025-04-17] MEDS: diphenhydrAMINE 50 mg/mL SDV 1mL 25 MG IVP (19:21)
[2025-04-17 19:49] VITALS: BP 158/100; PULSE 85; O2SAT 100
[2025-04-17 20:03] LABS: Alanine Aminotransferase 13 U/L (0-33); Albumin Level 4.3 g/dL (3.5-5.2); Alkaline Phosphatase 74 U/L (35-105); Anion Gap 19.7 (5-19); Aspartate Amino Transferase 14 U/L (0-32); Blood Urea Nitrogen 9 mg/dL (6-20); Calcium 9.4 mg/dL (8.5-10.5); Carbon Dioxide 20 mmol/L (22-29); Chloride 103 mmol/L (98-107); Creatinine Clr Calc Pharmacy 161.9979; Globulin 3.0 g/dL (1.3-4.6); Glucose 128 mg/dL (65-115); Lactic Sepsis W/Reflex 1.2 mmol/L (0.5-2.2); Lipase 18 U/L (13-60); Osmolality Calculated 288 mOsm/kg (285-295); Potassium 3.7 mmol/L (3.5-5.1); Sodium 139 mmol/L (136-145); Total Protein 7.3 g/dL (6.6-8.7)
[2025-04-17 20:55] LABS: Glucose Urine UA Negative (Normal); HCG Qualitative Urine. Negative (Negative); Nitrate Urine Negative (Negative); Specific Gravity, Urine 1.026 (1.005-1.030)
[2025-04-17] MEDS: iohexol 350 mg/mL 500 mL Btl (per mL) IV (21:03)
[2025-04-17 21:14] LABS: Add Urine Microscopic? YES
[2025-04-17] MEDS: LORazepam 1 MG/0.5 ML injection 0.5 MG IVP (21:19)
[2025-04-17 21:20] VITALS: BP 134/93; PULSE 92; O2SAT 100
[2025-04-17 21:22] LABS: UA Slide Review UA Slide Review Perf
[2025-04-17 23:30] VITALS: BP 117/71; PULSE 84; O2SAT 98
[2025-04-18] VITALS (8 sets, daily range): BP systolic 109–145; BP diastolic 69–90; PULSE 70–105; RESP 15–18; TEMP 36.8–37.4; O2SAT 94–99; BMI 32.0
[2025-04-18] MEDS: morphine 4 mg/mL SDV 1 mL IVP (00:10)
--- NOTE | 2025-04-18 02:02 | P.HP_ITS ---
Providers/Chief Complaint 2 Admitting Physician: Jose Maria Martinez MD Primary Care Provider: Gissell Chatman MD Chief Complaint: vomitting, abdominal pain History of Present Illness 29-year-old female with a history of Ayse fundoplication who presents with several days of diffuse, crampy abdominal pain associated with persistent nausea and intermittent diarrhea. She states that the pain began a few days ago, initially vague and intermittent, but progressed to become more constant and moderate in intensity by the day of admission. She localizes the discomfort to the lower abdomen but reports it as generally diffuse without a clear focal point. She notes associated nausea that has been refractory to outpatient antiemetics, including a total of 16 mg of ondansetron taken without symptomatic relief. Due to her prior surgical history, she is unable to vomit and instead experiences significant oral secretions when the nausea intensifies. She denies recent fevers, chills, chest pain, dysuria, or respiratory symptoms. She has had intermittent diarrhea alternating with constipation, which she attributes in part to ondansetron use. She underwent a Ayse fundoplication performed by Dr. Jacques Kc at [facility] in [place] earlier this year, with a prior post-operative CT scan in January obtained for similar symptoms. She denies any other chronic medical conditions apart from borderline hypothyroidism?previously evaluated by her primary care provider?which was reportedly normal on her most recent labs done two weeks ago at an outside facility. She is not on daily thyroid replacement but reports a remote prescription for levothyroxine 50 mcg that she is not currently taking. She also denies active use of Lexapro, though it had been prescribed in the past. Her only current medications include ondansetron and a daily oral contraceptive. She denies current alcohol or substance use but reports social alcohol use, most recently one week prior to admission. 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 Family history is noncontributory. She was evaluated in the emergency department and treated with IV fluids and antiemetics, including 1L of normal saline, 25 mg of IV Benadryl, 10 mg of compazine, and 0.5 mg of IV Ativan. A CT abdomen/pelvis showed findings consistent with acute enteritis or gastroenteritis, with scattered air-fluid levels in the bowel and gastric distention. Imaging also showed evidence of prior Ayse fundoplication without signs of surgical complication. Labs on arrival were notable for mild leukocytosis (WBC 11.7), an anion gap of 19, and moderate ketonuria with trace bacteriuria, consistent with volume depletion and reduced oral intake. Creatinine were within normal limits. Review of Systems 2 General: Reports: 10 or more systems reviewed and unremarkable except in HPI and below Medications/Allergies Home Medications ?Medication ?Instructions ?Recorded ?Confirmed ?Last Taken ?Type escitalopram oxalate 10 mg tablet 10 mg PO DAILY 01/0301/16/24 3 Weeks Ago History ~12/14/23 levothyroxine 50 mcg tablet 50 mcg PO QAM 01/04/24 3 Weeks Ago History ~12/14/23 norgestimate 0.25 mg-ethinyl 1 tab PO DAILY 01/04/24 0 01/16/24 Unknown History estradiol 0.035 mg tablet (Sprintec (28)) ondansetron 4 mg disintegrating 4 mg PO Q8H PRN nausea and 01/16/24 Unknown Rx tablet vomiting #14 tabs ondansetron HCl 4 mg tablet 4 mg PO Q8H #30 tabs 01/03 Unknown Rx Allergies Allergy/AdvReac Type Severity Reaction Status Date / Time amoxicillin (From Augmentin) AdvReac ADR-Gastrointestinal Verified 04/17/25 17:44 Upset clavulanic acid (From AdvReac ADR-Gastrointestinal Verified 04/17/25 17:44 Augmentin) Upset metoclopramide (From Reglan) AdvReac ADR-Anxiety Verified 04/17/25 17:44 PFSH Acute 2 PFSH: Medical History (Updated 04/17/25 @ 22:45 by Tanmay Alfonso MD) Ovarian cyst Surgical History History of appendectomy Vitals/I&O/Wt Last Vital Signs Temp 98.2 F 04/18/25 00:58 Pulse 90 04/18/25 00:58 Resp 17 04/18/25 00:58 BP 109/72 04/18/25 00:58 Pulse Ox 98 04/18/25 00:58 O2 Del Method Room Air 04/18/25 01:42 04/17/25 04/17/25 04/18/25 14:59 22:59 06:59 Intake Total 1000 / 1000 Balance 1000 / 1000 Weight last 48 hrs Weight 79.379 kg Weight 79.379 kg Physical Exam 2 Narrative: General: feeling uncomfortable. HEENT: Grossly unremarkab le CV: No chest pain. Respiratory: Non-labored Abdomen: Diffuse abdominal pain, more so in the lower abdomen. No surgical abdomen on CT. Neuro: Grossly unremarkable. Extremities: No swelling. Data 04/17/25 18:53 04/17/25 18:53 A&P Assessment and plan 1. Intractable nausea: 2. Acute epigastric pain: Plan: Impression: 29-year-old female with a history of Ayse fundoplication presents with a few days of diffuse abdominal pain, nausea, and dehydration. Workup is suggestive of acute gastroenteritis with ketonuria and a mildly elevated anion gap. CT abdomen showed no acute surgical process. Patient is currently hemodynamically stable. Additional workup and management ongoing. # Acute Gastroenteritis/Enteritis Presentation with diffuse abdominal pain, nausea, and intermittent diarrhea is suspicious for gastroenteritis. This is supported by CT findings of scattered air-fluid levels and a distended stomach. Labs show evidence of dehydration with ketonuria. Plan: Continue IV hydration. Antiemetics: As needed for nausea. Diet: Start with liquids and advance as tolerated to a soft GI diet. Stool studies: If diarrhea persists, will send for analysis. Protonix 40 mg IV daily for GI prophylaxis. # Dehydration with Ketosis Secondary to poor oral intake and possible gastroenteritis, as evidenced by ketonuria on UA and elevated anion gap. Plan: IVF as above. Monitor I/O. Repeat basic metabolic panel in the morning to assess response to hydration and resolution of anion gap acidosis. # Hypothyroidism (Borderline per pt) Patient reports a history of borderline hypothyroidism but states her last TSH two weeks ago was normal. Not currently on Synthroid. Will hold medication. # History of Anxiety/Depression Patient reports prior use of Lexapro but is no longer taking it. No acute psychiatric complaints. No acute intervention planned. #DVT Prophylaxis SCDS PDMP PDMP Reviewed: Not Reviewed Attestations 2 Medical Necessity Statement*: Anticipate less than 2 midnight stay in hospital for eval and treatment Coding Level of Care Code Acute Code for Chg Fwd Diagnoses Intractable nausea R11.0 Acute epigastric pain R10.13
[2025-04-18] MEDS: ondansetron 2 mg/ML SDV 2 mL 4 MG IVP ×2 (03:25→11:40)
[2025-04-18] MEDS: pantoprazole 40 mg SDV IVP (07:51)
--- NOTE | 2025-04-18 16:37 | PM.PN ---
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 Alvarado and Dr. Dill work. She is accompanied by her boyfriend Walter and her father Jan. Patient has never been told that her sugars were high. Her paternal grandpa and her maternal mother both have diabetes. Nobody else in the family has had trouble with GI upset or GERD. Patient has had GI trouble since childhood reporting 3 out of 7 days weekly she has loose stools and 1 out of 7 days she has diarrhea that makes the toilet water muddy. Vomiting has been every 2 weeks since age 18 not self-induced and not with any anorexia or bulimia. Patient denies any body image concerns or desire to lose weight. She had vomiting worsen culminating in fundoplication earlier this year by Dr. Jacques Kc in [place]. Since that time she now has difficulty swallowing or eating too fast. She states that bread got hung up and also potatoes and so that worried her now she chews things up meticulously and eat slow. She does not like meat very much but if she eats meat that has to be chewed up very small. She does eat tuna. She states this was due to history of GI disturbances so she has had a EGD and a colonoscopy. Furthermore she had diverticulitis in year 1999 requiring open surgery with a short section of colon removed as well as appendectomy Patient has never been but is on control so does not know if she can become . We discussed her ketonuria and no history of diabetes. She has not eaten yesterday or today. She states that the other times she was in the ER with urine test she was also nauseated vomiting and not eating for a couple of days Patient states she has vomited so much that they said it was damaging her esophagus but it did not ruin her teeth Vitals/I&O/Wt Last Vital Signs Temp 98.3 F 04/18/25 15:55 Pulse 75 04/18/25 15:55 Resp 04/18/25 15:55 BP 121/69 04/18/25 15:55 Pulse Ox 98 04/18/25 15:55 O2 Del Method Room Air 04/18/25 07:40 Weight last 48 hrs Weight 77.734 kg Weight 79.379 kg Weight 79.379 kg Physical Exam Narrative: General well-developed well-nourished female with no acute cardiopulmonary distress CV regular rate and rhythm Lungs clear to auscultation bilaterally Abdomen positive bowel sounds soft no epigastric tenderness Skin is warm but damp and mildly sweaty Data 04/17/25 18:53 04/17/25 18:53 A&P Assessment and plan 1. Intractable nausea: Suspicious for ketonuria and diabetes. 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 The ketonuria may be exacerbating the nausea so we will start D5NS with 20 mg KCl per liter to run at 100 cc an hour 2. Acute epigastric pain: Continue Protonix and GI cocktail as needed 3. Ketonuria: Give D5 fluid and start sliding scale insulin 4. Elevated fasting blood sugar: A1c is pending. Patient has had elevated fasting blood sugar and ketonuria on 3 occasions starting January 2024 Plan: #DVT Prophylaxis SCDS PDMP PDMP Reviewed: Not Reviewed Attestations Medical Necessity Statement*: Patient still nauseated with ketonuria and will require 1-2 midnights in hospital Coding Level of Care Code Acute Code for Chg Fwd Other Coding Information Extended care 20337 Diagnoses Intractable nausea R11.0 Acute epigastric pain R10.13 Ketonuria R82.4 Elevated fasting blood sugar R73.01 Time Spent (min) 30
[2025-04-18] MEDS: dextrose 5%-ns + KCl 20 20 MEQ/1,000 ML BAG 100 MEQ IV (18:03)
[2025-04-18 19:46] LABS: Estmated Average Glucose 97; Hemoglobin A1C 5.0 % (4.0-6.0)
[2025-04-19] VITALS (8 sets, daily range): BP systolic 126–147; BP diastolic 58–97; PULSE 70–89; RESP 15–18; TEMP 36.6–37.2; O2SAT 96–99
[2025-04-19] MEDS: ondansetron 2 mg/ML SDV 2 mL 4 MG IVP ×4 (03:59→23:28)
[2025-04-19] MEDS: dextrose 5%-ns + KCl 20 20 MEQ/1,000 ML BAG 100 MEQ IV ×2 (03:59→15:49)
[2025-04-19 04:30] LABS: Hematocrit 33.9 % (36-47); Hemoglobin 11.00 g/dL (11.27-16.99); Mean Corpuscular HGB Conc 32.4 g/dL (30-55); Mean Corpuscular Hemoglobin 28.8 pg (27-33); Mean Corpuscular Volume 88.7 fl (85-98); Nucleated Red Blood Cells % 0 %; Platelet Count 235 10^3/cmm (157-399); Red Blood Count 3.82 10^6/uL (3.85-5.65); White Blood Count 7.50 10^3/uL (3.29-11.43)
[2025-04-19 04:47] LABS: Anion Gap 13.7 (5-19); Blood Urea Nitrogen 5 mg/dL (6-20); Calcium 8.3 mg/dL (8.5-10.5); Carbon Dioxide 23 mmol/L (22-29); Chloride 106 mmol/L (98-107); Creatinine Clr Calc Pharmacy 160.2734; Glucose 91 mg/dL (65-115); Osmolality Calculated 285 mOsm/kg (285-295); Potassium 3.7 mmol/L (3.5-5.1); Sodium 139 mmol/L (136-145)
[2025-04-19] MEDS: pantoprazole 40 mg SDV IVP (09:13)
--- NOTE | 2025-04-19 11:58 | XR_ITS ---
WS: [id number] XR KUB portable [id number] REASON FOR EXAM: abdominal pain FINDINGS: There is a thin lucent line paralleling the undersurface of the diaphragm in the left upper quadrant. With the patient supine it is unlikely this represents free air but is more likely related to gas in the wall of the stomach or gas in the stomach out lining a bezoar like collection within the stomach. XR/XR KUB portable [id number] IMPRESSION: Abnormality in the left upper quadrant. Patient's CT scan 04/17/2025 was reviewed. Presumed previous Ayse fundoplicati on. The stomach is distended with large air-fluid level. There may be thickening of the gastric wall in the antrum of the stomach producing some degree of outlet obstruction of the stomach. There are some small collections of air in the fund us which appear fixed, possibly intramural, in relation to the fluid-filled fun dus of the stomach. Don't appear to be trapped within the folds of the plicatio n. The abnormality on the plain film presumably is related to these small colle ctions of air. If there is no improvement in clinical condition of the patient, endoscopy or repeat CT may be needed.
--- NOTE | 2025-04-19 12:11 | P.CONIM_ITS ---
Providers/Reason For Consult 2 Consulting Physician/Specialty*: dr. mera gen surg Reason for Consult*: intractable nausea, s/p Ayse Attending Physician: Rajan Haque MD Primary Care Provider: Gissell Chatman MD History of Present Illness History of Present Illness Sudheer Thao is a 29 year old female s/p Ayse funduplication for reflux 12/2024. Has since experienced nausea. Followed up with Dr. Avila in 01/2025, and per patient nausea atributed to gastroenteritis. Hasnt seen surgeon since. Reports nausea and inability to keep doing clears. Reports similar issues prior to surgery. Records from OSH not available for my review. Medications/Allergies Home Medications ?Medication ?Instructions ?Recorded ?Confirmed ?Last Taken ?Type norgestimate 0.25 mg-ethinyl 1 tab PO DAILY 01/04/24 0 04/18/25 04/17/25 History estradiol 0.035 mg tablet (Sprintec (28)) Allergies Allergy/AdvReac Type Severity Reaction Status Date / Time amoxicillin (From Augmentin) AdvReac ADR-Gastrointestinal Verified 04/17/25 17:44 Upset clavulanic acid (From AdvReac ADR-Gastrointestinal Verified 04/17/25 17:44 Augmentin) Upset metoclopramide (From Reglan) AdvReac ADR-Anxiety Verified 04/17/25 17:44 Current Medications Generic Name Dose Route Start Last Admin Trade Name Freq PRN Reason Stop Dose Admin Potassium Chloride/Dextrose/Sod Cl 20 meq in 1,000 mls @ 100 mls/hr 04/18/25 17:30 04/19/25 03:59 Dextrose 5%-Ns + Kcl 20 IV 100 mls/hr .Q10H JUSTIN Administration Insulin Human Lispro 0 unit 04/18/25 18:00 04/19/25 08:00 Insulin Lispro 100 Unit/1 Ml SUBCUT Not Given WM&BEDTIME JUSTIN Protocol Ondansetron HCl 4 mg 04/18/25 14:59 04/19/25 09:12 Ondansetron 2 Mg/Ml Sdv 2 Ml IVP 4 mg Q4H PRN Administration vomiting, or N/V if npo Pantoprazole Sodium 40 mg 04/18/25 09:00 04/19/25 09:13 Pantoprazole 40 Mg Sdv IVP 40 mg DAILY JUSTIN Administration PFSH Acute 2 PFSH: Medical History (Updated 04/18/25 @ 17:20 by Rajan Haque MD) Elevated fasting blood sugar Ketonuria Ovarian cyst Surgical History History of appendectomy Vitals/I&O/Wt Last Vital Signs Temp 98 F 04/19/25 08:15 Pulse 78 04/19/25 08:15 Resp 18 04/19/25 08:15 BP 127/84 04/19/25 08:15 Pulse Ox 98 04/19/25 08:15 O2 Del Method Room Air 04/18/25 19:43 04/18/25 04/19/25 04/19/25 22:59 06:59 14:59 Intake Total 1000 / 1000 1353.333 / 2353.333 120 / 120 Balance 1000 / 1000 1353.333 / 2353.333 120 / 120 Weight last 48 hrs Weight 171 lb Weight 171 lb 6 oz Weight 175 lb Weight 175 lb Physical Exam 2 Narrative: rrr unlabored breathing ra abdomen soft, nt, nd Data 04/20/25 04:28 04/20/25 04:28 A&P Assessment and plan 1. Intractable nausea: Plan: 29yo female s/p Ayse 12/2024. Now with intractable nausea. She will need outpatient workup by primary surgeon, possible dilation, possible Ayse revision. No acute surgical intervention indicated. Imaging reviewed. PDMP PDMP Reviewed: Not Reviewed Coding Level of Care Code 99479 Diagnoses Intractable nausea R11.0
[2025-04-19] MEDS: LORazepam 1 MG/0.5 ML injection 0.5 MG IVP ×3 (12:14→20:02)
--- NOTE | 2025-04-19 13:56 | PM.MISC ---
Miscellaneous Note Note: Full consult note to follow 29 yo female who had a Ayse funduplication in [place] by Dr. Avila in December 2024. Patient has had nausea and vomiting since her surgery. She saw Dr. Kc in January 2025 and per patient surgeon thought symptoms were unrelated to her operation. She has continued with nausea and vomiting until now. Admitted by medicine for management of gastroenteritis. Reviewed imaging. No acute surgical intervention indicated. Recommend evaluation by bariatric surgeon to determine if patient needs revision of her Ayse. Patient does report she had similar issues before the surgery, therefore may need evaluation by cobbler upper. Discussed with hospitalist.
--- NOTE | 2025-04-19 14:41 | P.PN_ITS ---
Subjective 2 Subjective: 29-year-old female reports jama oing nausea and abdominal pain. She is using heating pad. Also emotionally upset. States IV fluids were stopped because she went and took a shower when she was not supposed to states she was not sure what she could do to feel better I asked Dr. Ayoub to consult. He evaluated the patient and learned the patient has ongoing nausea vomiting both before and after her surgery which is also what I learned but we have been treating the patient for gastroenteritis last 48 hours and she has not really been improving. Today's KUB... 04/19/2025 KUB is showing a distended stomach with large air-fluid level. There is thickening of the gastric wall in the antrum of the stomach producing some degree of outlet obstruction of the stomach there are some small collections of fixed area in the fundus. Vitals/I&O/Wt Last Vital Signs Temp 98.3 F 04/19/25 13:07 Pulse 89 04/19/25 13:07 Resp 17 04/19/25 13:07 BP 147/97 04/19/25 13:07 Pulse Ox 98 04/19/25 13:07 O2 Del Method Room Air 04/18/25 19:43 04/18/25 04/19/25 04/19/25 22:59 06:59 14:59 Intake Total 1000 / 1000 1353.333 / 2353.333 360 / 360 Balance 1000 / 1000 1353.333 / 2353.333 360 / 360 Weight last 48 hrs Weight 77.564 kg Weight 77.734 kg Weight 79.379 kg Weight 79.379 kg Physical Exam 2 Narrative: General well-developed well-nourished female with no acute cardiopulmonary distress CV regular rate and rhythm Lungs clear to auscultation bilaterally Abdomen diffusely uncomfortable no rebound tenderness Data 04/19/25 03:47 04/19/25 03:47 A&P Assessment and plan 1. Intractable nausea: Suspicious for ketonuria and diabetes. 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 The ketonuria may be exacerbating the nausea so we will start D5NS with 20 mg KCl per liter to run at 100 cc an hour. 2. Acute epigastric pain: Patient has a large gastric bubble. It looks like she needs to have an NG tube placed as this has not improved in [address] until today's KUB. I called Dr. Jacques Avila office and they are paging on-call doctor Dr. Shah. I spoke with Dr. Shah. Looks like the patient has gastroenteritis and producing gas and ileus and now cannot vomit or belch up the air. We concur that an NG tube should be placed but not force down if the fundoplication is too tight. In that case we would need IR to place the NG tube. Dr. Shah and I suspect that the patient will need some dilation of the distal esophagus but we will try these measures to avoid need for transfer at this time. Will update the patient regarding this plan 3. Ketonuria: Give D5 fluid and start sliding scale insulin 4. Elevated fasting blood sugar: A1c is 5 essentially ruling out diabetes. Patient has had elevated fasting blood sugar and ketonuria on 3 occasions starting January 2024 Plan: #DVT Prophylaxis SCDS PDMP PDMP Reviewed: Not Reviewed Attestations 2 Medical Necessity Statement*: Patient remained in the hospital for additional day for anticipated NG tube placement and potentially will need transfer to her primary surgeon if not improving Coding Level of Care Code 22723 Diagnoses Intractable nausea R11.0 Acute epigastric pain R10.13 Ketonuria R82.4 Elevated fasting blood sugar R73.01 Time Spent (min) 35
--- NOTE | 2025-04-19 15:35 | XRR_ITS ---
PROCEDURE INFORMATION: Exam: XR Chest Exam date and time: 04/19/2025 3:37 PM Age: 29 years old Clinical indication: Device placement; Ng tube; Ng placement TECHNIQUE: Imaging protocol: Radiologic exam of the chest. Views: 1 view. COMPARISON: CR XR KUB portable [id number] 04/19/2025 1:07 PM FINDINGS: Tubes, catheters and devices: Enteric feeding tube is present with its distal tip subdiaphragmatic but its side port is still at the gastroesophageal junction and can be advanced 4-5 cm. Lungs: Unremarkable. No consolidation. Pleural spaces: Unremarkable. No pleural effusion. No pneumothorax. Heart/Mediastinum: Unremarkable. No cardiomegaly. Bones/joints: Unremarkable. XR/XR chest 1V portable [id number] IMPRESSION: As above.
[2025-04-19] MEDS: phenol oral Spray 177 mL 3 SPRAY MUCOUS MEM (16:47)
[2025-04-19] MEDS: morphine 4 mg/mL SDV 1 mL 2 MG IVP ×2 (19:27→23:27)
[2025-04-20 00:40] VITALS: BP 134/72; PULSE 83; RESP 12; TEMP 36.8; O2SAT 99
[2025-04-20] MEDS: LORazepam 1 MG/0.5 ML injection 0.5 MG IVP (02:48)
[2025-04-20] MEDS: dextrose 5%-ns + KCl 20 20 MEQ/1,000 ML BAG 100 MEQ IV (02:53)
[2025-04-20 03:51] VITALS: BP 137/92; PULSE 95; RESP 18; TEMP 36.6
[2025-04-20 04:51] LABS: Hematocrit 38.6 % (36-47); Hemoglobin 12.40 g/dL (11.27-16.99); Mean Corpuscular HGB Conc 32.1 g/dL (30-55); Mean Corpuscular Hemoglobin 28.6 pg (27-33); Mean Corpuscular Volume 89.1 fl (85-98); Nucleated Red Blood Cells % 0 %; Platelet Count 254 10^3/cmm (157-399); Red Blood Count 4.33 10^6/uL (3.85-5.65); White Blood Count 9.49 10^3/uL (3.29-11.43)
[2025-04-20 05:14] LABS: Alanine Aminotransferase 12 U/L (0-33); Albumin Level 4.0 g/dL (3.5-5.2); Alkaline Phosphatase 66 U/L (35-105); Anion Gap 16.0 (5-19); Aspartate Amino Transferase 14 U/L (0-32); Blood Urea Nitrogen 2 mg/dL (6-20); Calcium 9.0 mg/dL (8.5-10.5); Carbon Dioxide 24 mmol/L (22-29); Chloride 100 mmol/L (98-107); Creatinine Clr Calc Pharmacy 160.0952; Globulin 2.6 g/dL (1.3-4.6); Glucose 95 mg/dL (65-115); Osmolality Calculated 280 mOsm/kg (285-295); Potassium 3.0 mmol/L (3.5-5.1); Sodium 137 mmol/L (136-145); Total Protein 6.6 g/dL (6.6-8.7)
[2025-04-20 06:13] VITALS: RESP 18
[2025-04-20] MEDS: morphine 4 mg/mL SDV 1 mL 2 MG IVP (06:13)
[2025-04-20 07:55] VITALS: BP 107/64; PULSE 90; RESP 16; TEMP 36.7; O2SAT 99
[2025-04-20] MEDS: pantoprazole 40 mg SDV IVP (08:26)
--- NOTE | 2025-04-20 08:57 | XRR_ITS ---
PROCEDURE INFORMATION: Exam: XR Abdomen Exam date and time: 04/20/2025 10:36 AM Age: 29 years old Clinical indication: Device placement; Gi device; Nasogastric tube; Additional info: Follow up ngt at [facility] TECHNIQUE: Imaging protocol: Radiologic exam of the abdomen. Views: Frontal supine view of the abdomen. 1 View. COMPARISON: CR XR KUB portable [id number] 04/19/2025 1:07 PM FINDINGS: Tubes, catheters and devices: A nasogastric tube terminates in the left upper quadrant or stomach. Gastrointestinal tract: Normal. No bowel dilation. Bones/joints: Unremarkable. XR/XR KUB [id number] IMPRESSION: Nasogastric tube terminating in the stomach.
[2025-04-20 11:28] VITALS: BP 132/85; PULSE 79; RESP 16; TEMP 36.4; O2SAT 97
[2025-04-20] MEDS: potassium chloride oral liq 20 mEq/15 mL UDC PO ×2 (12:20→14:50)
--- NOTE | 2025-04-20 13:01 | P.PN_ITS ---
Subjective 2 Subjective: No nausea after decompressing with NGT Tolerating clears Abdomen benign Vitals/I&O/Wt Last Vital Signs Temp 97.6 F 04/20/25 11:28 Pulse 79 04/20/25 11:28 Resp 16 04/20/25 11:28 BP 132/85 04/20/25 11:28 Pulse Ox 97 04/20/25 11:28 O2 Del Method Room Air 04/20/25 07:55 O2 Flow Rate 98 04/20/25 03:51 04/19/25 04/20/25 04/20/25 22:59 06:59 14:59 Intake Total 1240 / 2600 Output Total 700 / 700 650 / 1350 300 / 300 Balance -700 / 660 590 / 1250 -300 / -300 Weight last 48 hrs Weight 171 lb Weight 171 lb Physical Exam 2 Narrative: rrr unlabored breathing ra abdomen soft, nt, nd Data 04/20/25 04:28 04/20/25 04:28 A&P Assessment and plan 1. Intractable nausea: Plan: 29 yo female s/p Ayse whom surgery was consulted for intractable nausea. Now doing better s/p NGT decompression. If able to tolerate clears recommend discharge and follow up with foregut surgeon for workup of persistent nausea, possible dilation, possible Ayse revision. PDMP PDMP Reviewed: Not Reviewed Attestations 2 Medical Necessity Statement*: NA Coding Level of Care Code 12542 Diagnoses Intractable nausea R11.0
--- NOTE | 2025-04-20 15:25 | P.DS_ITS ---
Discharge Providers Date of Admission: 04/17/25 22:46 Date of Discharge: April 20, 2025 Attending Provider at Admission: Rajan Haque MD Attending Provider at Discharge: Rajan Haque MD Primary Care Provider: Gissell Chatman MD Diagnoses at Discharge Discharge Diagnosis 1. Intractable nausea: Details from hospital stay: Ayse fundoplication gastroenteritis cannot exclude gastritis. After NG tube relief suctioning 1650 cc you are improved. Take pantoprazole 40 mg daily start clear liquid diet advancing to full liquid diet and well chewed or chopped up foods that you could swallow Follow-up with your surgeon Jacques Kc MD to consider dilation of the Ayse fundoplication. Reason for Visit Reason for Visit: vomitting, abdominal pain Brief History: 29-year-old female with a history of Nis sen fundoplication who presents with several days of diffuse, crampy abdominal pain associated with persistent nausea and intermittent diarrhea. She states that the pain began a few days ago, initially vague and intermittent, but progressed to become more constant and moderate in intensity by the day of admission. She localizes the discomfort to the lower abdomen but reports it as generally diffuse without a clear focal point. She notes associated nausea that has been refractory to outpatient antiemetics, including a total of 16 mg of ondansetron taken without symptomatic relief. Due to her prior surgical history, she is unable to vomit and instead experiences significant oral secretions when the nausea intensifies. She denies recent fevers, chills, chest pain, dysuria, or respiratory symptoms. She has had intermittent diarrhea alternating with constipation, which she attributes in part to ondansetron use. She underwent a Ayse fundoplication performed by Dr. Jacques Kc at [facility] in [place] earlier this year, with a prior post-operative CT scan in January obtained for similar symptoms. She denies any other chronic medical conditions apart from borderline hypothyroidism?previously evaluated by her primary care provider?which was reportedly normal on her most recent labs done two weeks ago at an outside facility. She is not on daily thyroid replacement but reports a remote prescription for levothyroxine 50 mcg that she is not currently taking. She also denies active use of Lexapro, though it had been prescribed in the past. Her only current medications include ondansetron and a daily oral contraceptive. She denies current alcohol or substance use but reports social alcohol use, most recently one week prior to admission. 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 Family history is noncontributory. She was evaluated in the emergency department and treated with IV fluids and antiemetics, including 1L of normal saline, 25 mg of IV Benadryl, 10 mg of compazine, and 0.5 mg of IV Ativan. A CT abdomen/pelvis showed findings consistent with acute enteritis or gastroenteritis, with scattered air-fluid levels in the bowel and gastric distention. Imaging also showed evidence of prior Ayse fundoplication without signs of surgical complication. Labs on arrival were notable for mild leukocytosis (WBC 11.7), an anion gap of 19, and moderate ketonuria with trace bacteriuria, consistent with volume depletion and reduced oral intake. Creatinine were within normal limits. 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 Alvarado and Dr. Dill work. She is accompanied by her boyfriend Walter and her father Jan. Patient has never been told that her sugars were high. Her paternal grandpa and her maternal mother both have diabetes. Nobody else in the family has had trouble with GI upset or GERD. Patient has had GI trouble since childhood reporting 3 out of 7 days weekly she has loose stools and 1 out of 7 days she has diarrhea that makes the toilet water muddy. Vomiting has been every 2 weeks since age 18 not self-induced and not with any anorexia or bulimia. Patient denies any body image concerns or desire to lose weight. She had vomiting worsen culminating in fundoplication earlier this year by Dr. Jacques Kc in [place]. Since that time she now has difficulty swallowing or eating too fast. She states that bread got hung up and also potatoes and so that worried her now she chews things up meticulously and eat slow. She does not like meat very much but if she eats meat that has to be chewed up very small. She does eat tuna. She states this was due to history of GI disturbances so she has had a EGD and a colonoscopy. Furthermore she had diverticulitis in year 1999 requiring open surgery with a short section of colon removed as well as appendectomy Patient has never been but is on control so does not know if she can become . We discussed her ketonuria and no history of diabetes. She has not eaten yesterday or today. She states that the other times she was in the ER with urine test she was also nauseated vomiting and not eating for a couple of days Patient states she has vomited so much that they said it was damaging her esophagus but it did not ruin her teeth I repeated imaging with a KUB of her abdomen 04/19/2025 and patient had still distended gastric bubble similar to her CT scan. I spoke with Dr. Ayoub who who recommended outpatient workup and possible dilation or Ayse revision. Patient remains quite miserable and I anticipated that she needed as NG tube placed. Placed call to Dr. Avila and Dr. Pablo Shah on-call physician I spoke. Patient's nurse Dannielle and I placed an NG tube in the right nares overnight she had 1650 cc output and feels much better KUB confirms that gastric bubble is no longer seen. NG tube was removed and she is tolerating clear liquid diet. She is accompanied by her father Jan and would like to go home. Notably potassium was low this morning after NG tube suction and her potassium was down to 3. We have given 2 doses of 20 mill colons each which might have brought her up to low normal Physical Exam Narrative: General well-developed female in no acute cardiopulmonary stress CV regular rate and rhythm Lungs clear to auscultation bilaterally Abdomen positive bowel tones soft nontender No epigastric tenderness now Discharge Data Studies Completed and Pending Completed Studies During Hospitalization Category Date Time Status CT abdomen pelvis w con* [id number] Stat Cat Scan 04/17/25 18:49 Completed XR KUB 95089 Urgent Exams 04/20/25 08:57 Completed XR KUB portable [id number] Routine Exams 04/19/25 11:58 Completed XR chest 1V portable [id number] Stat Exams 04/19/25 15:35 Completed Radiology Impressions Abdomen/Pelvis CT 04/17/25 18:49 IMPRESSION: Findings could be consistent with acute enteritis/gastroenteritis. Chest X-Ray 04/19/25 15:35 IMPRESSION: As above. KUB X-Ray 04/20/25 08:57 IMPRESSION: Nasogastric tube terminating in the stomach. Laboratory Results WBC 9.49 10^3/uL (3.29-11.43) 04/20/25 04:28 RBC 4.33 10^6/uL (3.85-5.65) 04/20/25 04:28 Hgb 12.40 g/dL (11.27-16.99) 04/20/25 04:28 Hct 38.6 % (36-47) 04/20/25 04:28 MCV 89.1 fl (85-98) 04/20/25 04:28 MCH 28.6 pg (27-33) 04/20/25 04:28 MCHC 32.1 g/dL (30-55) 04/20/25 04:28 RDW 11.8 % (12.1-15.1) L 04/20/25 04:28 Plt Count 254 10^3/cmm (157-399) 04/20/25 04:28 MPV 10.2 fL (7.4-10.4) 04/20/25 04:28 Neut % (Auto) 65.2 % 04/20/25 04:28 Lymph % (Auto) 25.7 % 04/20/25 04:28 [place] % (Auto) 8.4 % 04/20/25 04:28 Eos % (Auto) 0.1 % 04/20/25 04:28 Baso % (Auto) 0.3 % 04/20/25 04:28 Neut # (Auto) 6.18 10^3/uL (1.8-7.7) 04/20/25 04:28 Lymph # (Auto) 2.4 10^3/uL (0.8-4.8) 04/20/25 04:28 [place] # (Auto) 0.8 10^3/uL (0.2-0.9) 04/20/25 04:28 Eos # (Auto) 0.0 10^3/uL (0.0-0.8) 04/20/25 04:28 Baso # (Auto) 0.0 10^3/uL (0.0-0.1) 04/20/25 04:28 Nucleated RBC % (auto) 0 % 04/20/25 04:28 Nucleated RBCs # 0.0 /100WBC 04/20/25 04:28 Sodium 137 mmol/L (136-145) 04/20/25 04:28 Potassium 3.0 mmol/L (3.5-5.1) L 04/20/25 04:28 Chloride 100 mmol/L (98-107) 04/20/25 04:28 Carbon Dioxide 24 mmol/L (22-29) 04/20/25 04:28 Anion Gap 16.0 (5-19) 04/20/25 04:28 BUN 2 mg/dL (6-20) L 04/20/25 04:28 Creatinine 0.5 mg/dL (0.5-0.9) 04/20/25 04:28 GFR Calculation 145.9 mL/min (90-130) H 04/20/25 04:28 Glucose 95 mg/dL (65-115) 04/20/25 04:28 POC Glucose 85 mg/dL (70-110) 04/20/25 11:01 Estimat Average Glucose 97 04/17/25 18:53 Hemoglobin A1c 5.0 % (4.0-6.0) 04/17/25 18:53 Calculated Osmolality 280 mOsm/kg (285-295) L 04/20/25 04:28 Lactic Acid 1.2 mmol/L (0.5-2.2) 04/17/25 18:53 Calcium 9.0 mg/dL (8.5-10.5) 04/20/25 04:28 Total Bilirubin 0.3 mg/dL (0.15-1.2) 04/20/25 04:28 AST 14 U/L (0-32) 04/20/25 04:28 ALT 12 U/L (0-33) 04/20/25 04:28 Alkaline Phosphatase 66 U/L (35-105) 04/20/25 04:28 Total Protein 6.6 g/dL (6.6-8.7) 04/20/25 04:28 Albumin 4.0 g/dL (3.5-5.2) 04/20/25 04:28 Globulin 2.6 g/dL (1.3-4.6) 04/20/25 04:28 Lipase 18 U/L (13-60) 04/17/25 18:53 HCG, Qual Negative (Negative) 04/17/25 20:48 Urine Color Yellow (Yellow) 04/17/25 20:48 Urine Appearance Clear (CLEAR) 04/17/25 20:48 Urine pH 7.0 (5-7) 04/17/25 20:48 Ur Specific [place] 1.026 (1.005-1.030) 04/17/25 20:48 Urine Protein 1+ (Negative) A 04/17/25 20:48 Urine Glucose (UA) Negative (Normal) 04/17/25 20:48 Urine Ketones 3+ (Negative) H 04/17/25 20:48 Urine Blood Negative (Negative) 04/17/25 20:48 Urine Nitrate Negative (Negative) 04/17/25 20:48 Urine Bilirubin Negative (Negative) 04/17/25 20:48 Urine Urobilinogen 1.0 mg/dL (Negative) 04/17/25 20:48 Ur Leukocyte Esterase Negative (Negative) 04/17/25 20:48 Urine RBC 0-2 /hpf (0-2) 04/17/25 20:48 Urine WBC 11-20 /hpf (0-5) H 04/17/25 20:48 Ur Squamous Epith Cells 0-5 /hpf (0-5) 04/17/25 20:48 Amorphous Sediment Not Reportable 04/17/25 20:48 Urine Bacteria Trace /hpf (NONE) 04/17/25 20:48 Hyaline Casts 4.95 /lpf 04/17/25 20:48 Procedures Performed NG tube right nares Vitals Last Vital Signs Temp 97.6 F 04/20/25 11:28 Pulse 79 04/20/25 11:28 Resp 16 04/20/25 11:28 BP 132/85 04/20/25 11:28 Pulse Ox 97 04/20/25 11:28 O2 Del Method Room Air 04/20/25 07:55 O2 Flow Rate 98 04/20/25 03:51 Discharge Plan Discharge Patient Disposition: Home Condition: Stable Prescriptions: New pantoprazole 40 mg tablet,delayed release (DR/EC) 40 mg PO DAILY 28 Days Qty: 30 0RF ondansetron 4 mg tablet,disintegrating 4 mg PO Q4H PRN (Reason: nausea and vomiting) Qty: 20 0RF acetaminophen 325 mg Tablet 650 mg PO Q6H PRN (Reason: Mild/Mod Pain Or Temp >/= 101) Qty: 30 0RF Continued norgestimate-ethinyl estradiol [Sprintec (28)] 0.25-35 mg-mcg Tablet 1 tab PO DAILY Discharge Order = DC NOW: Discharge Order (Routine); Ordered 04/20/25 Ordered By: Rajan Haque Referrals: Gissell Chatman MD [Primary Care Provider, Internal Medicine] - 2 weeks Referral Note: We have notified your physician's clinic of the need for a follow-up appointment to be scheduled. If you have not heard from them within the next 2 business days, please call them directly. Jacques Avila MD [Referring, General Surgery] - 1 week Referral Note: We have notified your physician's clinic of the need for a follow-up appointment to be scheduled. If you have not heard from them within the next 2 business days, please call them directly. Discharge Diet: Advance as tolerated Patient Instructions: Opioid Safety, Patient Portal & Herb Instructions Activity Restrictions/Additional Instructions: Clear liquid diet advancing to ensure or similar 3 times daily. Continue to chew and chop your food up into very small particles before swallowing. Follow-up with Dr. Jacques Avila MD to discuss your difficulty with swallowing and inability to vomit following Ayse fundoplication Return if worsened abdominal pain fevers or hematemesis Take pantoprazole 40 mg daily for possible gastritis. Even if reflux cannot happen if you have gastritis you will have abdominal pain and tendency to want to vomit which you currently cannot do Discharge Attestations Time Spent in Discharge Care*: greater than 30 min Time Spent in Smoking Cessation: Not a smoker Quality Metrics Clinical Quality Measures [ No reported AMI, CVA or VTE this stay] Coding Level of Care Code Acute Code for Chg Fwd Diagnoses Intractable nausea R11.0
[2025-04-20 15:49] VITALS: BP 132/87; PULSE 80; RESP 17; TEMP 36.8; O2SAT 98
== END 2025-04-20 16:20 | disposition home or self-care (01) ==
LOC: ER 22:45 → MEDSURG 23:41
PROVIDERS: Hospitalist; Admitting Provider Internal Medicine; Emergency Provider Student in an Organized Health Care Education/Training Program; PCP Internal Medicine; Visit Provider Internal Medicine
DX: R11.0 Nausea (principal); K21.9 Gastro-esophageal reflux disease without esophagitis; R82.4 Acetonuria; R73.01 Impaired fasting glucose; Z87.19 Personal history of other diseases of the digestive system; Z98.890 Other specified postprocedural states; E86.0 Dehydration; E03.9 Hypothyroidism, unspecified; F41.8 Other specified anxiety disorders; E87.6 Hypokalemia
CPT/HCPCS: 36415; 36416; 71045; 74018; 74177; 80048; 80053; 81001; 81025; 82962; 83036; 83605; 83690; 85025; 96361; 96374; 96375; 96376; 99285; G0378; J0780; J1200; J2060; J2270; J2405; J2470; J7030; J7120; J9999

== ENCOUNTER 2025-08-19 02:22 | Emergency (ER) | payer OTHER, SELFPAY ==
--- OUTSIDE RECORDS SUMMARY | 2025-08-19 02:34 | XMS_ITS | Data Portability ---
Author Organization [facility] Carlotta Easley [facility] Address [address] [facility] [address] [place] [address] Care Team Providers Care Soda Worker Name Role Phone STEPHEN SAUNDERS Primary Care Provider [phone] Assessment No assessment recorded. Plan of Treatment Reminders Order Date Submit Date Provider Last Modified By Organization Details Last Modified Time Details Appointments None recorded. Lab PPD (purified protein derivative) , skin test 2024 025 [facility]), [address] [place] [address], [address], 13:01:27 Referral None recorded. Procedures None recorded. Surgeries None recorded. Imaging None recorded. Medication Orders ondansetron HCl (PF) 4 mg/2 mL injection solution 2024 025 [email or web address] Not available 17:05:50 ondansetron HCl (PF) 4 mg/2 mL injection solution 2024 025 [email or web address] Not available 08:32:35 Tubersol 5 tub. unit/0.1 mL intradermal injection solution 2024 025 [email or web address] Not available 07:56:24 Patient TargetsNo targets recorded. Patient InstructionsNo instructions recorded. Reason for Referral None Reported. Results Created Date Observation Date Name Description Value Unit Range Abnormal Flag Note LastModifiedBy Organization Detail LastModifiedTime 06/19/20 25 06/19/2025 PPD (angela fied prote in deriv ative ), skin test TB negati ve Not Available [facility]) [address] [place] [address] [place], [address], 06/17/2025 17:36:53 Result Notes None recorded. Problems Name Problem SNOMED Code Status Onset Date Resolution Date Notes Provider Name and Address Organization Details Recorded Time Diverticu litis of colon 975056676 Active 2015 Diverticu litis Of Colon; 6 9:17AM by Fide Shell LPN, Office Visit; Promoted; acuity set as *; Not Available [facility] 3 03:15:24 Contact dermatiti s 54910023 Active 2022 Bishnu Alvarado MD [address] [place], [address] , [facility] 3 08:16:37 Dark stools 82077597 Active 2023 DMITRY connell [facility] 4 14:18:05 Nausea and vomiting 68534155 Active 2023 [facility] 4 12:30:11 Chronic diarrhea 371457858 Active 2023 Angel connell [facility] 4 12:33:36 Acid reflux 534226425 Active 2023 Angel connell [facility] 4 12:33:37 Blood-tin ged feces 10423118035 4102 Active 2023 Angel connell [facility] 4 12:33:38 Abdominal pain 50168543 Active 2023 Everardo Sylvester DO [address] [place], [address] , [facility] 4 09:57:52 Hiatal hernia 22145021 Active 2023 Everardo Sylvester DO [address] [place], [address] , [facility] 4 09:57:53 Problem Notes None recorded. Procedures Surgical History Date Name Laterality Status Provider Name and Address Organization Details Recorded Time 12/14/19 25 hernia repair completed LALA HAINES [facility] 03/01/2025 08:09:01 endoscopy and biopsy of upper gastrointestinal tract completed New Erabhavesh Dacosta [facility] 08/05/2025 08:00:38 Appendectomy completed JERAD LOUIS [facility] 10/18/2023 11:18:35 Imaging Results None recorded. Procedure Notes None recorded. Medical Equipment None Reported. Allergies Allergen ID Allergen Name Allergen Category Reaction Reaction Severity Criticality Documentation Date Start Date Code Code System Note Provider Name and Address Organization Details Recorded Time 3194 Augmentin medicatio n Not available Not available Not available 02/16/2023 82111 2 RxNorm Angel Marquesjoshua ko [facility] 4 17:49:59 Medications Name Sig Start Date Stop [...] Not Available ondansetron HCl 8 mg tablet TAKE 1 TABLET BY MOUTH THREE TIMES DAILY NEEDED FOR NAUSEA AND VOMITING active Not Available Not Available No t Available ondansetron HCl 4 mg tablet TAKE 1 TABLET BY MOUTH EVERY 8 HOURS 08/05 completed Not Available Not Available Not Available Tubersol 5 tub. unit/0.1 mL intradermal injection solution Inject 0.1 mL by intraderm al route. 08/05 completed Not Available Not Available Not Available metoclopram luz 5 mg/5 mL oral solution take 5ml BY MOUTH 15 minutes BEFORE MEALS and THEN before bedtime 08/05 completed Not Available Not Available Not Available metronidazo le 500 mg tablet Take 1 tablet twice a day by oral route for 7 days. 09/12 completed Not Available Not Available Not Available prochlorper azine maleate 10 mg tablet TAKE 1 TABLET BY MOUTH THREE TIMES DAILY NEEDED FOR NAUSEA active Not Available Not Available No t Available betamethaso ne acetate and sodium phos [...] pantoprazol e 40 mg tablet,patricia yed release TAKE 1 TABLET BY MOUTH ONCE DAILY FOR 28 DAYS active Not Available Not Available No t Available promethazin e 25 mg/mL injection solution [...] Available ondansetron 4 mg disintegrat ing tablet DISSOLVE 1 TABLET IN MOUTH EVERY 4 HOURS NEEDED FOR NAUSEA AND VOMITING 08/05 completed Not Available Not Available Not Available cefdinir 300 mg capsule TAKE 1 CAPSULE BY MOUTH EVERY 12 HOURS FOR 7 DAYS 08/08 completed Not Available Not Available Not Available fluticasone propionate 50 mcg/actuati on nasal spray,suspe nsion [place] 1 spray every day by intranasa l route. 04/03 completed Not Available Not Available Not Available dicyclomine 10 mg capsule Take 1 capsule 3 times a day by oral route as needed. 11/06 completed Not Available Not Available Not Available amoxicillin 875 mg-potassiu m clavulanate 125 mg tablet TAKE 1 TABLET BY MOUTH TWICE DAILY FOR 10 DAYS 06/17 completed Not Available Not Available Not Available escitalopra m 10 mg tablet TAKE 1 TABLET BY MOUTH ONCE DAILY 08/22 completed Not Available Not Available Not Available Sprintec (28) 0.25 mg-0.035 mg tablet TAKE 1 TABLET BY MOUTH ONCE DAILY active Not Available Not Available No t Available bupropion HCl XL 150 mg 24 hr tablet, extended release TAKE 1 TABLET BY MOUTH ONCE DAILY active Not Available Not Available No t Available Tri-Sprinte c (28) 0.18 mg(7)/0.215 mg(7)/0.25 mg(7)-0.035 mg tablet TAKE 1 TABLET BY MOUTH ONCE DAILY 08/08 completed Not Available Not Available Not Available ondansetron HCl (PF) 4 mg/2 mL injection solution Take 2 mL every day by injection route for 1 day. 2024 active Not Available Not Available Not Avai lable Vitals Date Recorded Body height Body mass index (BMI) Body weight Oxygen saturation Oxygen saturation in Arterial blood by Pulse oximetry Heart rate Respiratory rate Body temperature Systolic And Diastolic Provider Name and Address Organization Details Last Updated DateTime 157.48 cm 29.8 kg/m2 11870.5 6 g 98 % 98 % 80 /min 16 /min 98.3 [degF] 122/74 mm[Hg] Ondina Dacosta [facility] 08:02:34 Social History Question Answer Notes LastModified by [employer] Details LastModified Time Tobacco Smoking Status Former Smoker LALA connell [facility] 03/01/2025 08:08:35 What Was The Date Of Your Most Recent Tobacco Screening? 08/05/2025 [email or web address] Information not available 08/05/2025 Sex: Unknown Functional Status Question Answer Note LastModified by [employer] Details LastModified Time Do you use any illicit or recreational drugs? No Information not available 04/03/2024 What is your level of alcohol consumption? None Information not available 04/03/2024 Mental Status None recorded. Family History Nothing Reported. Medical History Condition Response Coronary Artery Disease N Other N Gout N Kidney Stones N Blood Diseases N Hyperthyroidism N Breast Cancer N Blood Transfusion N Depression N Hypothyroidism N Lung Disease N COPD N Developmental or Behavioral Disorders N Defects or Inherited Disease N Breast Problem N Difficulty Swallowing N Anesthesia Complications N Anxiety Disorder N Meniere's disease N Muscle, Joint, or Bone Problems N Vision or Eye Problems N Arthritis N Infertility N Polyps N Cancer N Stroke N Varicosities N Endometriosis N Bladder or Kidney Problems N High Cholesterol N Liver Disease N Fibromyalgia N Headaches N Kidney Disease N Allergies/Hayfever N Heart [...] N Heart Disease N Pulmonary Embolism N Pre-Eclampsia N Hypertension N Chronic Ear Infections N Osteoporosis N Chicken Pox N Autism Spectrum Disorder (ASD) N Thrombophilias N Gynecological HistoryNo gynecological history recorded. Obstetrics History GPAL:G 0 P 0 0 0 0 Immunizations Vaccine Type Date Status Note Provider Nam e and Address Organization Details Recorded Time Influenza, split virus, trivalent, PF 07/01/2025 completed HANY connell, [facility] 07/01/2025 15:43:45 [facility] 05/11/2000 [facility]2023 15:21:35 MMR 07/26/1996 completed YAS connell [facility] 09/19/2023 15:21:35 Tdap 01/29/2011 [facility] 09/19/2023 15:21:35 DTP 1995 [facility] 09/19/2023 15:21:35 DTP 01/19/1996 [facility] 09/[facility]/2023 15:21:35 DTP 1995 completed YAS connell [facility] 09/19/2023 15:21:35 Hep B, unspecified formulation 01/19/1996 completed YAS connell [facility] 09/19/2023 15:21:35 Hep B, unspecified formulation 1995 completed YAS connell [facility] 09/19/2023 15:21:35 OPV, trivalent 1995 [facility]2023 15:21:35 OPV, trivalent 01/19/1996 completed TAMATHA GR EEN null, [facility] 09/19/2023 15:21:35 OPV, trivalent 1995 completed TAMATHA GR EEN null, [facility] 09/19/2023 15:21:35 polio, unspecified formulation 07/26/1996 completed TAMATHA GREEN null, [facility] 09/19/2023 15:21:35 DTP-Hib 07/26/1996 completed TAMATHA GREEN null, [facility] 09/19/2023 15:21:35 Hep B, adolescent or pediatric 1995 completed TAMATHA GREEN null, [facility] 09/19/2023 15:21:35 Hib (PRP-T) 1995 completed TAMATHA GREEN null, [facility] 09/19/2023 15:21:35 Hib (PRP-T) 01/19/1996 completed TAMATHA GREEN null, [facility] 09/19/2023 15:21:35 Hib (PRP-T) 1995 completed TAMATHA GREEN null, [facility] 09/19/2023 15:21:35 DTaP 05/11/2000 completed TAMATHA GREEN null, [facility] 09/19/2023 15:21:35 Past Encounters Encounter ID Performer Location Encounter Start Date Encounter Closed Date Diagnosis/Indication Diagnosis SNOMED-CT Code Diagnosis ICD10 Code Diagnosis IMO Codes Diagnosis Note [id number] DIEGO NAPIER [facility] ([facility]) [address] [place] [phone] 5 02/16/2023 17:39:26 02/16/2023 18:38:29 Nausea and vomiting 59547780 R11.2 [id number] LESLIE VELASQUEZ [facility] ([facility]) [address] [place] [phone] 04/01/2023 12:42:36 04/17/2023 21:16:38 Seasonal allergic rhinitis 126407153 J30.2 Continue daily Zyrtec and start daily Flonase. Can take tylenol/ib uprofen as needed for pain and fevers. Discussed with patient that viral coughs can last 6-8 weeks. Recommend increasing fluids and using cool mist humidifier at night. If worsening condition or no improvemen t in 7-10 days, return for further evaluation . [id number] ROLY SWANSON NP [facility] ([facility]) [address] [place] [address] 98613[address]865 5 04/14/2023 11:36:37 04/14/2023 14:43:31 Dysuria 61839797 R30.0 Discussed UA results negative except trace [...] concernsPa tient verbalized understand ing of plan. [id number] Bishnu Alvarado MD [facility] ([facility]) [address] [place] [address] 69099[address]577 5 06/21/2023 08:07:08 06/21/2023 08:27:05 Contact dermatitis 90935442 L25.9 Rash is consistent with contact dermatitis . Request steroid injection to help with symptoms. Continue as needed topical hydrocorti sone and/or Benadryl to help with symptoms as well. [id number] LESLIE VELASQUEZ [facility] ([facility]) [address] [place] [phone] 5 09/19/2023 14:41:11 09/19/2023 16:44:26 Sore throat 468529296 J02.9 Negative COVID. Negative strep. Acute pharyngitis 633636 003 J02.9 Reassured with negative strep test and negativeCO VID test. Discussed with patient that this is likely viral and will have to run its course. Can take tylenol/ib uprofen as needed for pain and fevers. If worsening condition or no improvemen t in 7-10 days, return for further evaluation . Patient verbalizes understand ing. [id number] LESLIE VELASQUEZ [facility] ([facility]) [address] [place] [address] 5 09/21/2023 10:55:27 09/21/2023 12:44:42 Acute upper respiratory infection 29503910 J06.9 Start Z-pack today. Can take benzonatat e PRN for cough. Encouraged patient to push fluids and use cool mist humidifier at night. Can take tylenol/ib uprofen as needed for pain and fever. Encouraged patient to return for further evaluation if no improvemen t in 3-5 days. If severe SOB or chest pain occurs, go to ED. Patient verbalized understand ing. [id number] Marlys Luo MD [facility] ([facility]) [address] [place] [phone] 5 10/18/2023 11:05:54 10/18/2023 11:51:41 Dysfunction of left eustachian tube 9876955227 927656 H69.92 OTC flonase or nasonex x 3-7 days [id number] DIEGO JOHNSON [facility] ([facility]) [address] [place] [address] 90414-780 5 11/15/2023 15:24:19 11/18/2023 17:16:47 Sprain of right foot 4878911367 7856201 S93.601A Neg xray today. Discussed RICE instructio ns and f/u in 1 week if pain persists. Ibuprofen for discomfort . May purchase otc post op shoe for comfort. [id number] LESLIE VELASQUEZ [facility] ([facility]) [address] [place] [address] 68019[address]653 5 12/28/2023 14:11:42 01/10/2024 21:45:04 Nausea and vomiting 31852295 R11.[address] Dill, patients PCP. Promethazi ne IM given in clinic and patient discharged with rectal promethazi ne as well. Abdominal pain 53546014 R10.9 KUB completed in clinic, shows no perforated bowel. Will have patient follow up with Dr. Dill tomorrow. Vomiting was better controlled by time of discharge. Patient did have family member with her to drive her home. If symptoms worsen or fever occurs, need to be re-evaluat ed in ED. Patient verbalizes understand ing. [id number] LISA KNIGHT [facility] ([facility]) [address] [place] [address] [phone] 5 01/24/2024 09:10:41 01/24/2024 10:44:06 Bacterial conjunctivitis 689916104 H10.9 counseled on dx. warm compresses and keep eyelids clean. counseled on limiting spread of illness. will start topical abx. Return to office with no improvemen t or any problems. [id number] LISA KNIGHT [facility] ([facility]) [address] [place] [address] 30940-211 5 04/03/2024 08:21:21 04/03/2024 12:21:20 Acute gastroenteritis 49481609 K52.9 Discussed BRATS diet, small frequent sips of fluid. Rest.VSS. No signs of acute abd on exam today.If you develop fever, no urine output over 24 hours, bloody stools/rita sis, abd pain, or concerns arise return for re-eval. [id number] LISA KNIGHT [facility] ([facility]) [address] [place] [address] 37208-306 5 04/16/2024 17:58:42 04/16/2024 18:11:48 Contact dermatitis caused by urushiol from [place] poison debora 491799286 L25.5 I counseled pt on dx of contact dermatitis , likely poison debora. pt to take a zyrtec/cla ritin every morning then benadryl at night. OTC topicals such as Debora Rest, Calamine, steroid creams, etc may be used for the itching. Return to office with no improvemen t or any problems. [id number] JO LEWIS [facility] ([facility]) [address] [place] [address] [phone] 5 05/30/2024 21:42:43 06/04/2024 08:08:00 Tuberculosis screening 649950289 Z11.1 [id number] LISA KNIGHT [facility] ([facility]) [address] [place] [address] [phone] 5 06/05/2024 16:51:27 06/05/2024 18:57:10 Gastritis 3781884 K29.70 Discussed use of daily omeprazole . Zofran refilled. [id number] Everardo Sylvester DO [facility]) [address] [place] [address] 17932-691 5 08/08/2024 11:54:13 08/13/2024 10:23:30 Chronic diarrhea 560598489 K52.9 Acid reflux 080989745 K2 1.9 Blood-tinged feces 07064 86688 90463 K92.1 Chronic vomiting 5597472 8 R11.10 I have reviewed and discussed colon cancer screening options, including colonoscop y. Discussed risks vs benefits including risk of infection and bleeding, perforatio n, possible need for surgery, reaction to medication s, and sever injury or . We discussed pt requiring sedation and possible general anesthesia . Pt agrees to proceed with Colonoscop y at [facility]. Preliminar y procedure date will be 09/06/24. [id number] LISA KNIGHT SEGREGATOR [facility] ([facility]) [address] [place] [address] [phone] 5 08/22/2024 17:02:17 08/22/2024 18:39:00 Vaginal discharge 055477940 N89.8 STD testing negative today. Will start flagyl. No alcohol use with this medication . If the symptoms do not resolve or new symptoms develop return for re-evaluat ion. [id number] Everardo Sylvester DO [facility] ([facility]) [address] [place] [address] [phone] 5 09/12/2024 16:37:59 09/13/2024 13:25:48 Abdominal pain 78035695 R10.9 09/12/24- counseled possible infection post Colonoscop y, will start abx. She just finished Flagyl, shortly before procedure. She says she can take Augmentin, will write it with Benyl to take up to 3 times daily as needed. To increase her Pantoprazo le twice daily.will get UA and culture today.Pt to go to ER with worsening symptoms, f/u with me in not significan tly improved by tuesday. Hiatal hernia 02140595 K 44.9 Large hernia on EGD with severe and refractory symptoms to high dose PPI, dietary changes and conservati ve management . Counseled on diagnosis, treatment options including medication s and possible side effects. Will refer to Surgeon for evaluation and considerat ion of surgical repair. [id number] Goran Esparza MD [facility] ([facility]) [address] [place] [address] [phone] 5 10/10/2024 08:42:38 10/10/2024 17:00:16 [id number] DIEGO JOHNSON [facility] ([facility]) [address] [place] [address] [phone] 5 11/06/2024 08:35:52 11/06/2024 10:08:51 Cough 35906471 R05.9 Influenza A virus present 8730450775 08 J09.X2 Discussed to alternate tylenol/mo dima for fever control. Rest and push oral fluids.If you develop sob, wheezing, no urine output over 24 hours, or feel symptoms are worsening then please return for re-evaluat ion.May return to work[facility] when you have no fever for 24 hours without the use of tylenol/mo dima. [id number] DIEGO JOHNSON [facility] ([facility]) [address] [place] [address] [phone] 5 12/13/2024 14:29:11 12/13/2024 15:45:27 Nausea 121107573 R11.0 IM zofran administer ed in clinic today. Suppositor ies prescribed . No signs of post op complicati on. [id number] DIEGO JOHNSON [facility] ([facility]) [address] [place] [address] [id number] 5 03/01/2025 07:54:13 03/04/2025 13:09:49 Nausea 281140943 R11.0 53912828 IM zofran administer ed in clinic today. Refill provided on compazine and ondansetro n.pt continues to have nausea episodes even after the hiatal hernia repair. Will trial patient on reglan and have her f/u with PCP to re-evaluat e. [id number] ILSA KNIGHT [facility] ([facility]) [address] [place] [address] [phone] 5 04/17/2025 18:06:43 04/19/2025 15:45:40 [id number] Everardo Sylvester DO [facility] ([facility]) [address] [place] [address] 66950-173 5 06/05/2025 16:59:25 06/10/2025 12:56:36 Nausea and vomiting 44993192 R11.2 Zofran IM today, will send in RX for 8mg, counseled. Hiatal hernia 60268910 K 44.9 Large hernia on EGD with severe and refractory symptoms to high dose PPI, dietary changes and conservati ve management . Continue care with eval for surgical repair. [id number] JO LEWIS [facility] ([facility]) [address] [place] [address] [phone] 5 06/17/2025 16:46:08 06/24/2025 11:42:32 Tuberculosis screening status 872426142 Z11.1 273128 [id number] JO LEWIS [facility] ([facility]) [address] [place] [address] 87080-869 5 07/01/2025 15:13:21 07/01/2025 15:28:32 Influenza vaccination given 8358087292 9109 Z23 68514276 Administra tion of influenza vaccine 67475688 Z23 [id number] AZUCENA CUELLO [facility] ([facility]) [address] [place] [address] 32329-983 5 08/05/2025 07:51:29 08/05/2025 12:07:24 Nausea 527286545 R11.0 [id number] Will give zofran this AM. Advised to increase fiber, water intake for constipati on issues. RTC with any new or worsening symptoms. [id number] DIEGO JOHNSON [facility] ([facility]) [address] [place] [address] 5 08/12/2025 17:00:09 08/12/2025 18:29:17 Nausea 272444380 R11.0 [id number] Pt presents with chronic nausea. Requesting zofran injection. Administer ed as nurse only visit Health Concerns Section Related Observation LastModified by Organization Detai ls LastModified Time None Recorded Concern Status LastModified by Organization Details LastModified Time None Recorded Advance Directives Directive None Recorded Payers Insurance Date Sequence Insurance Name Policy Number Policy Lee Covered Member ID Lee Member ID Guarantor Name 04/15/2023 1 *SELF PAY* Si lauraey M Tune 07/02/2025 1 [facility] (PPO) [id number] Sudheer M Tune [id number] Sudheer M Tune 07/02/2025 2 [facility] [facility] [place] [id number] Sudheer M Tune [id number] Sudheer M Tune 07/02/2025 1 [facility] [id number] Sudheer M Tune [id number] Sudheer M Tune 07/02/2025 1 [facility] [id number] Sudheer M Tune [id number] Sudheer M Tune 08/05/2025 1 [facility] (POS) [id number] Sudheer M Tune [id number] Sudheer M Tune 08/05/2025 1 [facility] (PPO) Sudheer M Tune [id number] Sudheer M Tune 07/02/2025 1 [facility] [id number] Sudheer M Tune [id number] Sudheer M Tune 08/05/2025 1 [facility] [id number] Sudheer M Tune [id number] Sudheer M Tune Notes Date Note Type Note Provider Name and Address Organization Details Recorded Time 08/05/2025 text/html NauseaReported b y PatientROS as noted in the HPI walk in patientpatient is here today for chronic nausea that she has all the time, patient took her zofran in the middle of the night and it did not help. Last BM was this AM. Hx of constipation. Patient states that she has had chronic nausea and constipation since having surgery in December. Unable to tolerate reglan. AZUCENA CUELLO, SEGREGATOR [address] [place], [address], [facility], [place] 08/05/2025 12:09:08 OBGyn Episode No OBEpisode recorded.
--- OUTSIDE RECORDS SUMMARY | 2025-08-19 02:35 | XMS_ITS | Clinical Summary ---
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 COVERER Gender Identity Not on file Sexual Orientation [...] 2006 05/11/2000, 07/26/1996, 01/19/1996, Additional history exists HPV/Cotest (21-29) 07/20/2018 07/20/2013 HPV VACCINES (1 - 3-dose SCD M series) 2022 CERVICAL CANCER SCREENING 2025 HPV/Cotest (30-65) 2025 07/20/2013 PAP SMEAR 2025 07/20/2013 INFLUENZA VACCINE (#1) 2025 HEPATITIS B VACCINES Completed 01/19/1996, 1995, 1995 Procedures Procedure Name Priority Date/Time Associated Diagnosis Comments CERV/VAG CYTOPATH, THIN PREP IMAGR RFLX HPV Routine 07/20/2013 3:15 PM CDT from Last 3 Months or Most Recently Relevant to Health Maintenance Results * CERV/VAG CYTOPATH, THIN PREP IMAGR RFLX HPV (07/20/2013 3:15 PM CDT) Pathologist [facility] PERSONAL INJURY LEGAL ASSISTANT CYTOLOGY REPORT REFLEX HPV [facility]atomic Pathology Dept [address] [facility] [address] Patient: SOLITARIO THAO Accn No: [id number] , [id number] Collected: 07/20/2013 3:15:00 PM All cases except those with a DP prefix are performed by pathologists from [facility]. Case type DP is performed by Dr. Ifeanyi Granda, [facility], [facility], [address], [address], [place] [address] (CLIA #[id number]) (Ph. [phone]). PERSONAL INJURY LEGAL ASSISTANT PAP - REFLEX HPV History Specimen Type: Endocervical LMP: 07/06/13 Previous Pap History: 1ST Specimen Adequacy Satisfactory for interpretation. The smear lacks endocervical or metaplastic cells. Diagnosis NEGATIVE FOR INTRAEPITHELIAL LESION OR MALIGNANCY. Fungal organisms morphologically consistent with Smiley. Tool Adjuster/ ROSAM Pathologist: 08/01/13 Completed by: VALERI ZAPATA [...] treating physician in consultation with his/her patient. [facility] [employer] [facility] 07/20/2013 3:15 PM CDT Yamileth Boudreaux REHABILITATION ASSISTANT PATHOLOGY/CYTOLOG Y ORDERABLES Edited Result - Final INTERFACE SYSTEM Refer to clinic/hospital department [facility] CLIA# [id number] [address] [place] [address] from Last 3 Months or Most Recently Relevant to Health Maintenance Insurance [employer] [place] [employer] Care Teams Regulatory Consultant Relationship Specialty Start Date End Date Gissell Chatman MD [address] [place] [address] PCP - General Internal Medicine 11/11/17
--- OUTSIDE RECORDS SUMMARY | 2025-08-19 02:35 | XMS_ITS | Encounter Summary ---
Author Organization [facility] Address [address] [place] [address] Care Team Providers Care Textile Colorist Formulator Name Role Phone Gissell Chatman MD Primary Care Provider +1- [phone] Encounter Details Date Type Department Care Team (Late st Contact Info) Description 11/24/1998 Outpatient [place] [address] [place] [address] Acute upper respiratory infections of other multiple sites (Primary Dx) Social History Tobacco Use Types Packs/Day Years Used Date Smoking Tobacco: Never Assessed Comments Unknown Sex and Gender Information Value Date Recorded Sex Assigned at Not on file 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
--- OUTSIDE RECORDS SUMMARY | 2025-08-19 02:35 | XMS_ITS | Continuity of Care Document ---
Author Organization [facility] Carlotta Easley, [facility] ([facility]) Address [address] [place] [address] Care Team Providers Care Bilingual Recruiter Name Role Phone STEPHEN SAUNDERS Primary Care Provider Assessment No assessment recorded. Plan of Treatment Reminders Order Date Submit Date Provider Last Modified By Organization Details Last Modified Time Details Appointments None recorded. Lab None recorded. Referral None recorded. Procedures None recorded. Surgeries None recorded. Imaging None recorded. Medication Orders ondansetron HCl (PF) 4 mg/2 mL injection solution 2024 025 [email or web address] Not available 5 17:05:50 Patient TargetsNo targets recorded. Patient InstructionsNo instructions recorded. Reason for Referral None Reported. Problems Name Problem SNOMED Code Status Onset Date Resolution Date Notes Provider Name and Address Organization Details Recorded Time Diverticu litis of colon 117011959 Active 2015 Diverticu litis Of Colon; 6 9:17AM by Fide Shell LPN, Office Visit; Promoted; acuity set as *; Not Available [employer] 3 03:15:24 Contact dermatiti s 48537802 Active 2022 Bishnu Alvarado MD [address] [place] [address], [address] , [facility] 3 08:16:37 Dark stools 13250708 Active 2023 [facility]nell [facility] 4 14:18:05 Nausea and vomiting 98315510 Active 2023 Angel Kiest [facility] 4 12:30:11 Chronic diarrhea 435020193 Active 2023 Angel Urrutia [facility] 4 12:33:36 Acid reflux 501331487 Active 2023 Angel Urrutia [facility] 4 12:33:37 Blood-tin ged feces 28024834592 4102 Active 2023 Angel Urrutia [facility] 4 12:33:38 Abdominal pain 99292137 Active [address], [address] [place] [address] , [facility] 4 09:57:52 Hiatal hernia 35799837 Active [address], [address] [place] [address] , [facility] 4 09:57:53 Problem Notes None recorded. Procedures Surgical History Date Name Laterality Status Provider Name and Address Organization Details Recorded Time 12/14/19 25 hernia repair completed LALA HAINES [facility] 03/01/2025 08:09:01 endoscopy and biopsy of upper gastrointestinal tract completed Ondina Dacosta [facility] 08/05/2025 08:00:38 Appendectomy completed JERAD LOUIS [facility] 10/18/2023 11:18:35 Imaging Results None recorded. Procedure Notes None recorded. Medical Equipment None Reported. Allergies Allergen ID Allergen Name Allergen Category Reaction Reaction Severity Criticality Documentation Date Start Date Code Code System Note Provider Name and Address Organization Details Recorded Time 9464 Augmentin medicatio n Not available Not available Not available 02/16/2023 53098 2 RxNorm Angel connell, [place] - [facility], Carlotta 17:49:59 Medications Name Sig Start Date Stop [...] propionate 50 mcg/actuati on nasal spray,suspe nsion [place] 1 spray every day by intranasa l [...] Available Not Available Not Avai lable Vitals None Recorded Social History Question Answer Notes LastModified by Organizat ion Details LastModified Time Tobacco Smoking Status [facility]/01/2025 08:08:35 What Was The Date Of Your Most Recent Tobacco Screening? 08/05/2025 [email or web address] Information not available 08/05/2025 Sex: Unknown Functional Status Question Answer Note LastModified by Organizat ion Details LastModified Time Do you use any illicit or recreational drugs? No Information not available 04/03/2024 What is your level of alcohol consumption? None Information not available 04/03/2024 Mental Status None recorded. Family History Nothing Reported. Medical History Condition Response Coronary Artery Disease N Gout N Other N Blood Diseases N Kidney Stones N Hyperthyroidism N Breast Cancer N Blood Transfusion N Hypothyroidism N Lung Disease N COPD N Depression N Developmental or Behavioral Disorders N Defects or Inherited Disease N Breast Problem N Difficulty Swallowing N Anesthesia Complications N Meniere's disease N Anxiety Disorder N Muscle, Joint, or Bone Problems N [...] virus, trivalent, PF 07/01/2025 completed HANY connell, [facility] 07/01/2025 15:43:45 MMR 05/11/2000 completed YAS connell [facility] 09/19/2023 15:21:35 MMR 07/26/1996 completed YAS connell [facility] 09/19/2023 15:21:35 Tdap 01/29/2011 completed YAS connell [facility] 09/19/2023 15:21:35 DTP 1995 completed YAS connell [facility], MagoLAldoCAldo 09/19/2023 15:21:35 DTP 01/19/1996 completed YAS connell [facility], MagoLAldoCAldo 09/19/2023 15:21:35 DTP 1995 completed YAS connell [facility], KoreyCAldo 09/19/2023 15:21:35 Hep B, unspecified formulation 01/19/1996 completed TAMATHA GREEN null, [facility] 09/19/2023 15:21:35 Hep B, unspecified formulation 1995 completed TAMATHA GREEN null, [facility] 09/19/2023 15:21:35 OPV, trivalent 1995 completed TAMATHA GR EEN null, [facility] 09/19/2023 15:21:35 OPV, trivalent 01/19/1996 completed TAMATHA GR EEN null, [facility] 09/19/2023 15:21:35 OPV, trivalent 1995 completed TAMATHA GR EEN null, [facility] 09/19/2023 15:21:35 polio, unspecified formulation 07/26/1996 completed TAMATHA GREEN null, [facility] 09/19/2023 15:21:35 DTP-Hib 07/26/1996 completed TAMATHA GREEN null, [facility] 09/19/2023 15:21:35 Hep B, adolescent or pediatric 1995 completed TAMATHA GREEN null, [facility] 09/19/2023 15:21:35 Hib (PRP-T) 1995 completed TAMATHA GREEN null, [facility] 09/19/2023 15:21:35 Hib (PRP-T) 01/19/1996 completed TAMATHA GREEN null, [facility] 09/19/2023 15:21:35 Hib (PRP-T) 1995 completed TAMATHA GREEN null, [facility] 09/19/2023 15:21:35 DTaP 05/11/2000 completed TAMATHA GREEN null, [facility] 09/19/2023 15:21:35 Past Encounters Encounter ID Performer Location Encounter Start Date Encounter Closed Date Diagnosis/Indication Diagnosis SNOMED-CT Code Diagnosis ICD10 Code Diagnosis IMO Codes Diagnosis Note [id number] DIEGO RODNEY [facility] ([facility]) [address] [place] [address] 08/05/2025 07:51:29 08/05/2025 12:07:24 Nausea 122578647 R11.0 641684 Will give zofran this AM. Advised to increase fiber, water intake for constipati on issues. RTC with any new or worsening symptoms. [id number] DIEGO JOHNSON [facility] ([facility]) [address] [place] [address] 08/12/2025 17:00:09 08/12/2025 18:29:17 Nausea 251156885 R11.0 429055 Pt presents with chronic nausea. Requesting zofran injection. Administer ed as nurse only visit Health Concerns Section Related Observation LastModified by Organization Detai ls LastModified Time None Recorded Concern Status LastModified by Organization Details LastModified Time None Recorded Payers Encounter Date Sequence Insurance Name Policy Number Policy Lee Covered Member ID Lee Member ID Guarantor Name 08/12/2025 1 [facility] ([facility] Sudheer Thao [id number] Sudheer Thao OBGyn Episode No OBEpisode recorded.
--- OUTSIDE RECORDS SUMMARY | 2025-08-19 02:36 | XMS_ITS | Encounter Summary ---
Author Organization [facility] Address [address] [place] [address] Care Team Providers Care Private Secretary Name Role Phone Gissell Chatman MD Primary Care Provider +1- [phone] Encounter Details Date Type Department Care Team (Latest Contact Info) Description 07/06/2006 Outpatient Historical [facility] [place] [address] [place] [address] Caleb West MD NO ADDRESS ON FILE Esophageal Reflux (Primary Dx) Social History Tobacco Use Types Packs/Day Years Used Date Smoking Tobacco: Never Assessed Comments Unknown Sex and Gender Information Value Date Recorded Sex Assigned at Not on file Legal Sex Female 3:16 AM CLINICAL AIDE Gender Identity Not on file Sexual Orientation Not on file documented as of this encounter Plan of Treatment Not on file documented as of this encounter Visit Diagnoses Diagnosis Esophageal reflux- Primary documented in this encounter Care Teams Private Secretary Relationship Specialty Start Date End Date Gissell Chatman MD [address] [place] [address] PCP - General Internal Medicine 11/11/17 documented as of this encounter
--- OUTSIDE RECORDS SUMMARY | 2025-08-19 02:37 | XMS_ITS | Encounter Summary ---
Author Organization [facility] Address [address] [place] [address] Care Team Providers Care Medicine Aide Name Role Phone Gissell Chatman MD Primary Care Provider +1- [phone] Encounter Details Date Type Department Care Team (Late st Contact Info) Description 07/17/1998 Outpatient [place] [address] [place] [address] Acute upper respiratory infections of other multiple sites (Primary Dx) Social History Tobacco Use Types Packs/Day Years Used Date Smoking Tobacco: Never Assessed Comments Unknown Sex and Gender Information Value Date Recorded Sex Assigned at Not on file Legal Sex Female 3:16 AM TICKET SALES AGENT Gender Identity Not on file Sexual Orientation Not on file documented as of this encounter Plan of Treatment Not on file documented as of this encounter Visit Diagnoses Diagnosis Acute upper respiratory infections of other multiple sites- Primary documented in this encounter Care Teams Medicine Aide Relationship Specialty Start Date End Date Gissell Chatman MD [address] [place] [address] PCP - General Internal Medicine 11/11/17 documented as of this encounter
--- OUTSIDE RECORDS SUMMARY | 2025-08-19 02:37 | XMS_ITS | Encounter Summary ---
Author Organization [facility] Address [address] [place] [address] Care Team Providers Care Trolley Collector Name Role Phone Gissell Chatman MD Primary Care Provider +1- [phone] Encounter Details Date Type Department Care Team (Latest Contact Info) Description 08/20/2006 Outpatient [facility] [place] [address] [place] [address] Ozzy Agarwal FNP NO ADDRESS ON FILE Streptococcal Sore Throat (Primary Dx) Social History Tobacco Use Types Packs/Day Years Used Date Smoking Tobacco: Never Assessed Comments Unknown Sex and Gender Information Value Date Recorded Sex Assigned at Not on file 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
--- OUTSIDE RECORDS SUMMARY | 2025-08-19 02:37 | XMS_ITS | Encounter Summary ---
Author Organization [facility] Address [address] [place] [address] Care Team Providers Care Special Procedures Tech Name Role Phone Gissell Chatman MD Primary Care Provider +1- [phone] Encounter Details Date Type Department Care Team (Late st Contact Info) Description 10/10/2007 Outpatient Historical [facility] [place] [address] [place] [address] Yusef Huynh MD [address] [place] [address] Social History Tobacco Use Types Packs/Day Years Used Date Smoking Tobacco: Never Assessed Comments Unknown Sex and Gender Information Value Date Recorded Sex Assigned at Not on file Legal Sex Female 3:16 AM MATERIAL HANDLING EQUIPMENT STEVEDORE Gender Identity Not on file Sexual Orientation Not on file documented as of this encounter Plan of Treatment Not on file documented as of this encounter Visit Diagnoses Not on filedocumented in this encounter Care Teams Special Procedures Tech Relationship Specialty Start Date End Date Gissell Chatman MD [address] [place] [address] PCP - General Internal Medicine 11/11/17 documented as of this encounter
--- OUTSIDE RECORDS SUMMARY | 2025-08-19 02:37 | XMS_ITS | Encounter Summary ---
Author Organization [facility] Address [address] [place] [address] Care Team Providers Care Type Caster Name Role Phone Gissell Chatman MD Primary Care Provider +1- [phone] Encounter Details Date Type Department Care Team (Latest Contact Info) Description 05/30/2007 Outpatient Historical [facility] [place] [address] [place] [address] Tom Rodney, BASKETBALL PLAYER [address] [address] Streptococcal Sore Throat (Primary Dx) Social History Tobacco Use Types Packs/Day Years Used Date Smoking Tobacco: Never Assessed Comments Unknown Sex and Gender Information Value Date Recorded Sex Assigned at Not on file Legal Sex Female 3:16 AM 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
--- OUTSIDE RECORDS SUMMARY | 2025-08-19 02:37 | XMS_ITS | Encounter Summary ---
Author Organization [facility] Address [address] [place] [address] Care Team Providers Care Application Support Intern Name Role Phone Gissell Chatman MD Primary Care Provider +1- [phone] Encounter Details Date Type Department Care Team (Latest Contact Info) Description 07/06/2006 Outpatient Historical [facility] [place] [address] [place] [address] Caleb West MD NO ADDRESS ON FILE Abdominal Pain, Unspecified Site (Primary Dx); Esophageal Reflux Social History Tobacco Use Types Packs/Day Years Used Date Smoking Tobacco: Never Assessed Comments Unknown Sex and Gender Information Value Date Recorded Sex Assigned at Not on file Legal Sex Female 3:16 AM LUMBER PULLER Gender Identity Not on file Sexual Orientation Not on file documented as of this encounter Plan of Treatment Not on file documented as of this encounter Visit Diagnoses Diagnosis Abdominal pain, unspecified site- Primary Esophageal reflux documented in this encounter Care Teams Application Support Intern Relationship Specialty Start Date End Date Gissell Chatman MD [address] [place] [address] PCP - General Internal Medicine 11/11/17 documented as of this encounter
[2025-08-19 02:38] VITALS: BP 114/76; PULSE 90; RESP 17; TEMP 36.6; O2SAT 99; BMI 30.2
--- OUTSIDE RECORDS SUMMARY | 2025-08-19 02:38 | XMS_ITS | Encounter Summary ---
Author Organization [facility] Address [address] [place] [address] Care Team Providers Care Oxidized Finish Plater Name Role Phone Gissell Chatman MD Primary Care Provider +1- [phone] Encounter Details Date Type Department Care Team (Late st Contact Info) Description 10/28/1998 Outpatient Historical [facility] Gaurav [place] [address] [place] [address] Urinary tract infection, site not specified (Primary Dx) Social History Tobacco Use Types Packs/Day Years Used Date Smoking Tobacco: Never Assessed Comments Unknown Sex and Gender Information Value Date Recorded Sex Assigned at Not on file Legal Sex Female 3:16 AM ADMISSIONS COORDINATOR Gender Identity Not on file Sexual Orientation Not on file documented as of this encounter Plan of Treatment Not on file documented as of this encounter Visit Diagnoses Diagnosis Urinary tract infection, site not specified- Primary documented in this encounter Care Teams Oxidized Finish Plater Relationship Specialty Start Date End Date Gissell Chatman MD [address] [place] [address] PCP - General Internal Medicine 11/11/17 documented as of this encounter
--- OUTSIDE RECORDS SUMMARY | 2025-08-19 02:38 | XMS_ITS | Encounter Summary ---
Author Organization [facility] Address [address] [place] [address] Care Team Providers Care Compliance Professional Name Role Phone Gissell Chatman MD Primary Care Provider +1- [phone] Encounter Details Date Type Department Care Team (Latest Contact Info) Description 05/18/2006 Outpatient Historical 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
--- OUTSIDE RECORDS SUMMARY | 2025-08-19 02:38 | XMS_ITS | Encounter Summary ---
Author Organization [facility] Address [address] [place] [address] Care Team Providers Care Oncology Specialist Name Role Phone Gissell Chatman MD Primary Care Provider +1- [phone] Encounter Details Date Type Department Care Team (Latest Contact Info) Description 02/09/2005 Outpatient [facility] Oral and Maxillo Surgery[address] [place] [address] Goran Mirza, PhD NO ADDRESS ON FILE SURGERY FOLLOWUP, UNSPEC (Primary Dx) Social History Tobacco Use Types Packs/Day Years Used Date Smoking Tobacco: Never Assessed Comments Unknown Sex and Gender Information Value Date Recorded Sex Assigned at Not on file Legal Sex Female 3:16 AM CLOTH PACKER Gender Identity Not on file Sexual Orientation Not on file documented as of this encounter Plan of Treatment Not on file documented as of this encounter Visit Diagnoses Diagnosis Follow-up examination, following unspecified surgery- Primary documented in this encounter Care Teams Oncology Specialist Relationship Specialty Start Date End Date Gissell Chatman MD [address] [place], [place] [address] PCP - General Internal Medicine 11/11/17 documented as of this encounter
--- OUTSIDE RECORDS SUMMARY | 2025-08-19 02:38 | XMS_ITS | Encounter Summary ---
Author Organization [facility] Address [address] [place] [address] Care Team Providers Care Interactive Media Designer Name Role Phone Gissell Chatman MD Primary Care Provider +1- [phone] Encounter Details Date Type Department Care Team (Late st Contact Info) Description 01/04/2005 Outpatient Historical [facility] Oral and Maxillo Surgery[address] [place] [address] Social History Tobacco Use Types Packs/Day Years Used Date Smoking Tobacco: Never Assessed Comments Unknown Sex and Gender Information Value Date Recorded Sex Assigned at Not on file Legal Sex Female 3:16 AM TELECOMMUNICATIONS REPAIRER Gender Identity Not on file Sexual Orientation Not on file documented as of this encounter Plan of Treatment Not on file documented as of this encounter Visit Diagnoses Not on filedocumented in this encounter Care Teams Interactive Media Designer Relationship Specialty Start Date End Date Gissell Chatman MD [address] [place], [place] [id number] PCP - General Internal Medicine 11/11/17 documented as of this encounter
--- OUTSIDE RECORDS SUMMARY | 2025-08-19 02:38 | XMS_ITS | Encounter Summary ---
Author Organization [facility] Address [address] [place] [address] Care Team Providers Care Plastics Factory Worker Name Role Phone Gissell Chatman MD Primary Care Provider +1- [phone] Encounter Details Date Type Department Care Team (Latest Contact Info) Description 07/04/2006 Outpatient Historical [facility] [place] [facility] [address] [place] [address] Caleb West MD NO ADDRESS ON FILE Abdominal Pain, Unspecified Site (Primary Dx); Urinary Tract Infection, Site not Specified Social History Tobacco Use Types Packs/Day Years Used Date Smoking Tobacco: Never Assessed Comments Unknown Sex and Gender Information Value Date Recorded Sex Assigned at Not on file Legal Sex Female 3:16 AM EMERGENCY ROOM SPECIALIST Gender Identity Not on file Sexual Orientation Not on file documented as of this encounter Plan of Treatment Not on file documented as of this encounter Visit Diagnoses Diagnosis Abdominal pain, unspecified site- Primary Urinary tract infection, site not specified documented in this encounter Care Teams Plastics Factory Worker Relationship Specialty Start Date End Date Gissell Chatman MD [address] [place] [address] PCP - General Internal Medicine 11/11/17 documented as of this encounter
--- OUTSIDE RECORDS SUMMARY | 2025-08-19 02:39 | XMS_ITS | Encounter Summary ---
Author Organization [facility] Address [address] [place] [address] Care Team Providers Care Sales Apprentice Name Role Phone Gissell Chatman MD Primary Care Provider +1- [phone] Encounter Details Date Type Department Care Team (Latest Contact Info) Description 12/11/1998 Outpatient [place] [address] [place] [address] Other general medical examination for administrative purposes (Primary Dx) Social History Tobacco Use Types Packs/Day Years Used Date Smoking Tobacco: Never Assessed Comments Unknown Sex and Gender Information Value Date Recorded Sex Assigned at Not on file Legal Sex Female 3:16 AM CONTENT CHECKER Gender Identity Not on file Sexual Orientation Not on file documented as of this encounter Plan of Treatment Not on file documented as of this encounter Visit Diagnoses Diagnosis Other general medical examination for administrative purposes- Primary documented in this encounter Care Teams Sales Apprentice Relationship Specialty Start Date End Date Gissell Chatman MD [address] [place] [address] PCP - General Internal Medicine 11/11/17 documented as of this encounter
--- OUTSIDE RECORDS SUMMARY | 2025-08-19 02:39 | XMS_ITS | Encounter Summary ---
Author Organization [facility] Address [address] [place] [address] Care Team Providers Care Modeling Manager Name Role Phone Gissell Chatman MD Primary Care Provider +1- [phone] Encounter Details Date Type Department Care Team (Latest Contact Info) Description 02/11/2004 Outpatient Historical [facility] [address] [place] [address] Caleb West MD NO ADDRESS ON FILE DERMATITIS NOS (Primary Dx) Social History Tobacco Use Types Packs/Day Years Used Date Smoking Tobacco: Never Assessed Comments Unknown Sex and Gender Information Value Date Recorded Sex Assigned at Not on file 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
--- OUTSIDE RECORDS SUMMARY | 2025-08-19 02:39 | XMS_ITS | Encounter Summary ---
Author Organization [facility] Address [address] [place] [address] Care Team Providers Care Engineering Test Mechanic Name Role Phone Gissell Chatman MD Primary Care Provider +1- [phone] Encounter Details Date Type Department Care Team (Latest Contact Info) Description 01/04/2005 Outpatient Historical [facility] Pediatrics-[facility] [place] [address] [place] [address] Caleb West MD NO ADDRESS ON FILE INJURY OF FACE AND NECK (Primary Dx); MANDIBLE FX NOS-CLOSED (CMS/HCC) Social History Tobacco Use Types Packs/Day Years Used Date Smoking Tobacco: Never Assessed Comments Unknown Sex and Gender Information Value Date Recorded Sex Assigned at Not on file 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
--- OUTSIDE RECORDS SUMMARY | 2025-08-19 02:39 | XMS_ITS | Encounter Summary ---
Author Organization [facility] Address [address] [place] [address] Care Team Providers Care Laser Beam Cutter Name Role Phone Gissell Chatman MD Primary Care Provider +1- [phone] Encounter Details Date Type Department Care Team (Latest Contact Info) Description 01/08/2005 Outpatient [facility] Oral and Maxillo Surgery- [address] [place] [address] Arie Frias, DDS [address] [place] [address] SUBCONDYLAR FX MANDIB-CL (CMS/HCC) (Primary Dx); SURGERY FOLLOWUP, UNSPEC Social History Tobacco Use Types Packs/Day Years Used Date Smoking Tobacco: Never Assessed Comments Unknown Sex and Gender Information Value Date Recorded Sex Assigned at Not on file 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
--- OUTSIDE RECORDS SUMMARY | 2025-08-19 02:39 | XMS_ITS | Encounter Summary ---
Author Organization [facility] Address [address] [place] [address] Care Team Providers Care Conveyor Tender Concrete Mixing Plant Name Role Phone Gissell Chatman MD Primary Care Provider +1- [phone] Encounter Details Date Type Department Care Team (Late st Contact Info) Description 01/15/1999 Outpatient Historical [facility] [place] [address] [place] [address] Allergic rhinitis due to other allergen (Primary Dx) Social History Tobacco Use Types Packs/Day Years Used Date Smoking Tobacco: Never Assessed Comments Unknown Sex and Gender Information Value Date Recorded Sex Assigned at Not on file 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
--- OUTSIDE RECORDS SUMMARY | 2025-08-19 02:39 | XMS_ITS | Encounter Summary ---
Author Organization [facility] Address [address] [place] [address] Care Team Providers Care Band Machine Operator Name Role Phone Gissell Chatman MD Primary Care Provider +1- [phone] Encounter Details Date Type Department Care Team (Latest Contact Info) Description 01/08/1999 Outpatient [place] [address] [place] [address] Conjunctivitis unspecified (Primary Dx); Unspecified otitis media; Acute upper respiratory infections of other multiple sites Social History Tobacco Use Types Packs/Day Years Used Date Smoking Tobacco: Never Assessed Comments Unknown Sex and Gender Information Value Date Recorded Sex Assigned at Not on file 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
--- OUTSIDE RECORDS SUMMARY | 2025-08-19 02:40 | XMS_ITS | Encounter Summary ---
Author Organization [facility] Address [address] [place] [address] Care Team Providers Care Writer Technical Publications Name Role Phone Gissell Chatman MD Primary Care Provider +1- [phone] Encounter Details Date Type Department Care Team (Latest Contact Info) Description 12/05/2003 Outpatient Historical [facility] Pediatrics-[facility] [place] [address] [place] [address] Caleb West MD NO ADDRESS ON FILE STREP SORE THROAT (Primary Dx); ALLERGIC RHINITIS NOS Social History Tobacco Use Types Packs/Day Years Used Date Smoking Tobacco: Never Assessed Comments Unknown Sex and Gender Information Value Date Recorded Sex Assigned at Not on file Legal Sex Female 3:16 AM DIRECT SUPPORT STAFF Gender Identity Not on file Sexual Orientation Not on file documented as of this encounter Plan of Treatment Not on file documented as of this encounter Visit Diagnoses Diagnosis Streptococcal sore throat- Primary Allergic rhinitis, cause unspecified documented in this encounter Care Teams Writer Technical Publications Relationship Specialty Start Date End Date Gissell Chatman MD [address] [place] [address] PCP - General Internal Medicine 11/11/17 documented as of this encounter
--- OUTSIDE RECORDS SUMMARY | 2025-08-19 02:40 | XMS_ITS | Encounter Summary ---
Author Organization [facility] Address [address] [place] [address] Care Team Providers Care Automatic Folder Seamer Name Role Phone Gissell Chatman MD Primary Care Provider +1- [phone] Encounter Details Date Type Department Care Team (Latest Contact Info) Description 04/26/2002 Outpatient Historical [facility] [place] [address] [facility] [address] [place] [address] Edwin Hancock MD [address] [address] OTITIS MEDIA NOS (Primary Dx); ACUTE URI NOS Social History Tobacco Use Types Packs/Day Years Used Date Smoking Tobacco: Never Assessed Comments Unknown Sex and Gender Information Value Date Recorded Sex Assigned at Not on file 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
--- OUTSIDE RECORDS SUMMARY | 2025-08-19 02:40 | XMS_ITS | Clinical Summary ---
Author Organization [employer] [employer] Address [address] [facility] Attn: Epic Prelude ADT [place] [address] Care Team Providers Care Cellophane Worker Name Role Phone Gissell Chatman MD Primary Care Provider +1- [phone] Allergies Active Allergy Reactions Criticality Noted Date [...] drink = 0.6 oz pur e alcohol) Feeling Safe Answer Date Recorded Are you in a relationship wi th someone who hurts you emotionally and/or physically? 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 Gender Identity Not on file Sexual [...] Health Maintenance Due Date Last Done Comments HPV/Cotest (21-29) 2016 DTAP/TDAP/TD VACCINES (7 - T d or Tdap) 01/29/2021 01/29/2011, 05/11/2000, 06/19/1999, Additional history exists HPV VACCINES (1 - 3-dose SCD M series) 2022 CERVICAL CANCER SCREENING 2025 HPV/Cotest (30-65) 2025 PAP SMEAR 2025 INFLUENZA VACCINE (#1) 2025 HEPATITIS B VACCINES Completed 06/19/1999, 01/19/1996, 01/19/1996, Additional history exists [place] [address] [facility] [id number] Member Subscriber Plan / Payer (Ef fective 2024-Present) Name:Sudheer Thao Relation to Subscriber:Self Name:Sudheer Thao Payer ID:[id number] (NAIC) Type:PPO Address: [facility] [id number] [place] [id number] Care Teams Cellophane Worker Relationship Specialty Start Date End Date Gissell Chatman MD [address] [place] [id number] PCP - General Internal Medicine 11/11/17
[2025-08-19 03:17] LABS: Hematocrit 42.6 % (36-47); Hemoglobin 14.10 g/dL (11.27-16.99); Mean Corpuscular HGB Conc 33.1 g/dL (30-55); Mean Corpuscular Hemoglobin 29.0 pg (27-33); Mean Corpuscular Volume 87.7 fl (85-98); Nucleated Red Blood Cells % 0 %; Platelet Count 286 10^3/cmm (157-399); Red Blood Count 4.86 10^6/uL (3.85-5.65); White Blood Count 14.21 10^3/uL (3.29-11.43)
[2025-08-19 03:26] VITALS: BP 138/99; PULSE 83; O2SAT 100
[2025-08-19 03:29] LABS: HCG, Serum Qual Negative (Negative)
[2025-08-19 03:33] LABS: Glucose Urine UA Negative (Normal); Nitrate Urine Negative (Negative)
--- NOTE | 2025-08-19 03:34 | CTR_ITS ---
PROCEDURE INFORMATION: Exam: CT Abdomen And Pelvis With Contrast Exam date and time: 08/19/2025 3:43 AM Age: 30 years old Clinical indication: Pain and abnormal findings; Abnormal lab test; Elevated wbc; Abdominal pain; Prior surgery; Surgery date: 6+ months; Surgery type: Hernia repair. Appy; Epigastric pain with leukocytosis. TECHNIQUE: Imaging protocol: Computed tomography of the abdomen and pelvis with contrast. Radiation optimization: All CT scans at this facility use at least one of these dose optimization techniques: automated exposure control; mA and/or kV adjustment per patient size (includes targeted exams where dose is matched to clinical indication); or iterative reconstruction. Contrast material: OMNI 350; Contrast volume: 80 ml; Contrast route: INTRAVENOUS (IV); COMPARISON: CT abdomen pelvis w con* [id number] 04/17/2025 9:02 PM RADIATION DOSE METRICS: Total DLP (mGy-cm): 515.5 FINDINGS: Liver: Normal. No mass. Gallbladder and biliary ducts: Normal. No calcified stones. No ductal dilation. Pancreas: Normal. No ductal dilation. Spleen: Normal. No splenomegaly. Adrenal glands: Normal. No mass. Kidneys and ureters: Normal. No hydronephrosis. Stomach and bowel: Ayse fundoplication. No bowel obstruction. No free air. Appendix: Nonvisualized appendix, correlate for history of appendectomy. Intraperitoneal space: See Stomach and bowel finding. Vasculature: Unremarkable. No abdominal aortic aneurysm. Lymph nodes: Unremarkable. No enlarged lymph nodes. Urinary bladder: Decompressed urinary bladder. Reproductive: Right ovarian cyst measures 2.2 x 1.7 cm. No follow-up indicated. Bones/joints: Unremarkable. No acute fracture. Soft tissues: Unremarkable. CT/CT abdomen pelvis w con* [id number] IMPRESSION: 1. Ayse fundoplication. 2. No bowel obstruction. No free air. 3. Right ovarian cyst measures 2.2 x 1.7 cm. No follow-up indicated.
[2025-08-19 03:35] LABS: Alanine Aminotransferase 16 U/L (0-33); Albumin Level 4.7 g/dL (3.5-5.2); Alkaline Phosphatase 67 U/L (35-105); Anion Gap 22.0 (5-19); Aspartate Amino Transferase 25 U/L (0-32); Blood Urea Nitrogen 7 mg/dL (6-20); Calcium 9.5 mg/dL (8.5-10.5); Carbon Dioxide 18 mmol/L (22-29); Chloride 100 mmol/L (98-107); Globulin 2.9 g/dL (1.3-4.6); Glucose 144 mg/dL (65-115); Lipase 11 U/L (13-60); Magnesium 2.0 mg/dL (1.7-2.3); Osmolality Calculated 283 mOsm/kg (285-295); Potassium 4.0 mmol/L (3.5-5.1); Sodium 136 mmol/L (136-145); Total Protein 7.6 g/dL (6.6-8.7)
[2025-08-19 03:38] LABS: Add Urine Microscopic? YES
[2025-08-19 03:41] LABS: Specific Gravity, Urine 1.032 (1.005-1.030)
--- NOTE | 2025-08-19 03:45 | W.ED.NAVMDI ---
HPI - Nausea/Vomiting/Diarrhea General: Chief complaint: Nausea/Vomiting/Diarrhea Stated complaint: N/V ABD PAIN, DEHYDRATION Time Seen by Provider: 08/19/25 03:09 History of Present Illness: Patient is a 30-year-old female presenting with nausea and abdominal pain since approximately 06:00 today. She reports feeling sick to her stomach with retching. Due to a previous abdominal surgery in December 2024 (fundoplication), she states she cannot actually vomit but did experience some red and brown-tinged material coming up that tasted like blood. She continues to feel nauseated and reports abdominal pain. The patient has a history of similar episodes of nausea since her surgery but states this episode is more severe. In April 2025, she was admitted to this hospital for abdominal distention, which she described as her stomach being 'doubled in size' due to air accumulation. She denies fever or diarrhea but reports constipation, which she attributes to frequent Zofran use for chronic nausea. She has been taking Zofran at home for the current episode but states it has not provided relief, even when taking higher than prescribed doses. She typically doubles the dose, taking more than the standard 4-8mg, which she believes contributes to her constipation. Related Data Home Medications ?Medication ?Instructions ?Recorded ?Confirmed norgestimate 0.25 mg-ethinyl 1 tab PO DAILY 01/04/24 04/18/25 estradiol 0.035 mg tablet (Sprintec (28)) Previous Rx's ?Medication ?Instructions ?Recorded acetaminophen 325 mg tablet 650 mg (2 x 325 mg) PO Q6H PRN 04/20/25 Mild/Mod Pain Or Temp >/= 101 #30 tabs ondansetron 4 mg disintegrating 4 mg PO Q4H PRN nausea and 04/20/25 tablet vomiting #20 tabs lactulose 10 gram/15 mL oral 20 g (30 mL) PO BID PRN 08/19/25 solution (Constulose) constipation #1,200 mL Allergies Allergy/AdvReac Type Severity Reaction Status Date / Time amoxicillin (From Augmentin) AdvReac ADR-Gastrointestinal Verified 04/17/25 17:44 Upset clavulanic acid (From AdvReac ADR-Gastrointestinal Verified 04/17/25 17:44 Augmentin) Upset metoclopramide (From Reglan) AdvReac ADR-Anxiety Verified 04/17/25 17:44 [facility] ED PFSH: Medical History Elevated fasting blood sugar Ketonuria Ovarian cyst Surgical History History of appendectomy Physical Exam Const: COMMON NORMALS: no acute distress GENERAL APPEARANCE: cooperative and ill appearing (mildly); not frail appearing HENMT: COMMON NORMALS: normocephalic, atraumatic and Normal external nose present HEAD & SCALP: normocephalic and atraumatic FACE & SINUS: normal facial exam and face symmetric NOSE: Normal external nose present Eye: COMMON NORMALS: Equal, round and reactive pupils present and EOMs intact bilaterally PUPIL: Yes Equal, round and reactive pupils present Neck/C-Spine: GENERAL: Yes trachea midline Chest: CHEST: Yes Symmetrical chest wall rise Resp: COMMON NORMALS: normal respiratory effort, No retractions, No use of accessory muscles and clear to auscultation bilaterally AUSCULTATION: clear to auscultation bilaterally Cardio: COMMON NORMALS: regular rate and regular rhythm RATE: regular rate RHYTHM: regular rhythm GI: INSPECTION: Yes abdominal distension (mild) PALPATION: Yes Tenderness to palpation present (GI) (epigastric) Extremity: COMMON NORMALS: no pedal edema Neuro: SHERRY COMA SCALE: document GCS findings Sherry coma scale eye opening: Spontaneous [place] coma scale verbal response: Orientated Sherry coma scale motor response: Obey commands Sherry coma scale total score: 15 SENSORY EXAM: Yes extremities (intact) Psych: COMMON NORMALS: speech normal SPEECH: Yes normal speech Skin: COMMON NORMALS: no rashes or lesions noted GENERAL SKIN EXAM: no rashes or lesions noted Course Vital Signs: Vital signs: Vital Signs Temperature 97.8 F 08/19/25 02:38 Pulse Rate 83 08/19/25 03:26 Respiratory Rate 18 08/19/25 03:52 Blood Pressure 138/99 08/19/25 03:26 Pulse Oximetry 100 08/19/25 03:26 Oxygen Delivery Me thod Room Air 08/19/25 03:26 MDM - Nausea/Vomiting/Diarrhea Medical Decision Making Vitals are stable. She is afebrile. 14 white blood cell count. Bicarbonate is 18. CBC and BMP are otherwise not remarkable. CRP is 9. Urinalysis is negative. Lipase is 11. Liver enzymes are normal. CT reveals Niesen fundoplication with no bowel obstruction, no free air. There is an ovarian cyst present that is small. She feels much improved after morphine Toradol and Zofran here as well as a small dose of Haldol for nausea. She stable for discharge currently. Outpatient follow-up. Return for worsening symptoms. Lab Data 08/19/25 03:12 08/19/25 03:12 Radiology Impressions Abdomen/Pelvis CT 08/19/25 03:34 IMPRESSION: 1. Ayse fundoplication. 2. No bowel obstruction. No free air. 3. Right ovarian cyst measures 2.2 x 1.7 cm. No follow-up indicated. Laboratory Results WBC 14.21 10^3/uL (3.29-11.43) H 08/19/25 03:12 RBC 4.86 10^6/uL (3.85-5.65) 08/19/25 03:12 Hgb 14.10 g/dL (11.27-16.99) 08/19/25 03:12 Hct 42.6 % (36-47) 08/19/25 03:12 MCV 87.7 fl (85-98) 08/19/25 03:12 MCH 29.0 pg (27-33) 08/19/25 03:12 MCHC 33.1 g/dL (30-55) 08/19/25 03:12 RDW 11.9 % (12.1-15.1) L 08/19/25 03:12 Plt Count 286 10^3/cmm (157-399) 08/19/25 03:12 MPV 10.0 fL (7.4-10.4) 08/19/25 03:12 Neut % (Auto) 94.2 % 08/19/25 03:12 Lymph % (Auto) 4.6 % 08/19/25 03:12 [place] % (Auto) 0.8 % 08/19/25 03:12 Eos % (Auto) 0.0 % 08/19/25 03:12 Baso % (Auto) 0.1 % 08/19/25 03:12 Neut # (Auto) 13.38 10^3/uL (1.8-7.7) H 08/19/25 03:12 Lymph # (Auto) 0.7 10^3/uL (0.8-4.8) L 08/19/25 03:12 [place] # (Auto) 0.1 10^3/uL (0.2-0.9) L 08/19/25 03:12 Eos # (Auto) 0.0 10^3/uL (0.0-0.8) 08/19/25 03:12 Baso # (Auto) 0.0 10^3/uL (0.0-0.1) 08/19/25 03:12 Nucleated RBC % (auto) 0 % 08/19/25 03:12 Nucleated RBCs # 0.0 /100WBC 08/19/25 03:12 Sodium 136 mmol/L (136-145) 08/19/25 03:12 Potassium 4.0 mmol/L (3.5-5.1) 08/19/25 03:12 Chloride 100 mmol/L (98-107) 08/19/25 03:12 Carbon Dioxide 18 mmol/L (22-29) L 08/19/25 03:12 Anion Gap 22.0 (5-19) H 08/19/25 03:12 BUN 7 mg/dL (6-20) 08/19/25 03:12 Creatinine 0.6 mg/dL (0.5-0.9) 08/19/25 03:12 GFR Calculation 117.4 mL/min (90-130) 08/19/25 03:12 Glucose 144 mg/dL (65-115) H 08/19/25 03:12 Calculated Osmolality 283 mOsm/kg (285-295) L 08/19/25 03:12 Calcium 9.5 mg/dL (8.5-10.5) 08/19/25 03:12 Magnesium 2.0 mg/dL (1.7-2.3) 08/19/25 03:12 Total Bilirubin 0.4 mg/dL (0.15-1.2) 08/19/25 03:12 AST 25 U/L (0-32) 08/19/25 03:12 ALT 16 U/L (0-33) 08/19/25 03:12 Alkaline Phosphatase 67 U/L (35-105) 08/19/25 03:12 C-Reactive Protein 9.1 mg/L (0.0-4.9) H 08/19/25 03:12 Total Protein 7.6 g/dL (6.6-8.7) 08/19/25 03:12 Albumin 4.7 g/dL (3.5-5.2) 08/19/25 03:12 Globulin 2.9 g/dL (1.3-4.6) 08/19/25 03:12 Lipase 11 U/L (13-60) L 08/19/25 03:12 HCG, Qual Negative (Negative) 08/19/25 03:12 Urine Color Yellow (Yellow) 08/19/25 03:23 Urine Appearance Clear (CLEAR) 08/19/25 03:23 Urine pH 6.0 (5-7) 08/19/25 03:23 Ur Specific [place] 1.032 (1.005-1.030) H 08/19/25 03:23 Urine Protein 2+ (Negative) A 08/19/25 03:23 Urine Glucose (UA) Negative (Normal) 08/19/25 03:23 Urine Ketones 4+ (Negative) 08/19/25 03:23 Urine Blood Negative (Negative) 08/19/25 03:23 Urine Nitrate Negative (Negative) 08/19/25 03:23 Urine Bilirubin Negative (Negative) 08/19/25 03:23 Urine Urobilinogen 1.0 mg/dL (Negative) 08/19/25 03:23 Ur Leukocyte Esterase Negative (Negative) 08/19/25 03:23 Urine RBC 0-2 /hpf (0-2) 08/19/25 03:23 Urine WBC 6-10 /hpf (0-5) 08/19/25 03:23 Ur Squamous Epith Cells 0-5 /hpf (0-5) 08/19/25 03:23 Amorphous Sediment Not Reportable 08/19/25 03:23 Urine Bacteria None seen /hpf (NONE) 08/19/25 03:23 Hyaline Casts 0.81 /lpf 08/19/25 03:23 All radiology interpretation(s) finalized by discharge Discharge Plan Discharge Patient Disposition: Home Clinical Impression: Acute epigastric pain Condition: Stable Prescriptions: New lactulose [Constulose] 10 gram/15 mL solution 20 g PO BID PRN (Reason: constipation) Qty: 1200 0RF No Action norgestimate-ethinyl estradiol [Sprintec (28)] 0.25-35 mg-mcg Tablet 1 tab PO DAILY acetaminophen 325 mg Tablet 650 mg PO Q6H PRN (Reason: Mild/Mod Pain Or Temp >/= 101) Qty: 30 0RF ondansetron 4 mg tablet,disintegrating 4 mg PO Q4H PRN (Reason: nausea and vomiting) Qty: 20 0RF Discharge Orders: Discharge ED (Routine); Ordered 08/19/25 Ordered By: Walter Licona Referrals: Gissell Chatman MD [Primary Care Provider, Internal Medicine] - 1-3 days Patient Instructions: Abdominal Pain (ED), Opioid Safety, Pain Management, Patient Portal & Herb Instructions Activity Restrictions/Additional Instructions: Return for repeated episodes of nausea vomiting, worsening abdominal pain, etc. Return also for fever. You may use medication prescribed for symptoms of constipation. Follow-up with your doctor. Call later this morning for follow-up appointment. Print Language: Grenadian Coding Level of Care Code ED Remote Sensing Technologist for Johana Renee
[2025-08-19] MEDS: ondansetron 2 mg/ML SDV 2 mL 4 MG IVP (03:51)
[2025-08-19] MEDS: haloperidol inj 5 mg/mL INJ 1 mL 3 MG IVP (03:51)
[2025-08-19 03:52] VITALS: RESP 18
[2025-08-19] MEDS: morphine 4 mg/mL SDV 1 mL IVP (03:52)
[2025-08-19] MEDS: iohexol 350 mg/mL 500 mL Btl (per mL) IV (03:54)
[2025-08-19 05:49] VITALS: BP 108/67; PULSE 93; O2SAT 100
== END 2025-08-19 05:52 | disposition home or self-care (01) ==
PROVIDERS: Emergency Provider Emergency Medicine; PCP Internal Medicine
DX: R10.13 Epigastric pain (principal)
CPT/HCPCS: 74177; 80053; 81001; 83690; 83735; 84703; 85025; 86140; 96361; 96374; 96375; 99285; 99291; J1630; J1885; J2270; J2405; J7030